=== PATIENT | female | born 1960 | race Caucasian/White ===

== ENCOUNTER 2017-06-05 22:43 | Emergency (ER) | payer OTHER ==
[~2017-06-05] VITALS: Ht 168.9 cm; Wt 119.5 kg
[~2017-06-05 22:43] MED LIST: ADD/10 PO; CYAN10004 PO; EFFEXOR XR PO; ERGO1CAP35 PO; FLNIN NAE; LORA-741 PO; LRT5 PO; PANT40TA PO
[2017-06-05 22:48] VITALS: Ht 168.9 cm; Wt 119.5 kg
[2017-06-05] MEDS ORDERED: ACETAMINOPHEN 500 MG TAB PO STA (23:02)
[2017-06-05] MEDS ORDERED: VENL150C PO (23:07)
[2017-06-05] MEDS ORDERED: WARF5TAB90 PO ×2 (23:09)
[2017-06-05] MEDS ORDERED: SUCR1TAB29 PO (23:09)
[2017-06-05] MEDS ORDERED: ACYC-57 PO (23:09)
--- NOTE | 2017-06-05 23:53 | EMERGENCY ROOM VISIT NOTE ---
History Report prepared by Pattie: April Naidu Under the Supervision of: Dr. Nicola Guerra M.D. First contact with patient: 22:52 Chief Complaint: ANKLE PAIN Stated Complaint: RT ANKLE INJURY History of Present Illness The patient is a 56 year old female who presents to the Emergency Room with complaints of persistent right ankle pain starting yesterday. The patient was carrying groceries into the house when she rolled her ankle in down a curb. She landed on her knees. She denies hitting her head. She was able to keep walking on her ankle, but has had a lot of pain. 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 She denies any nausea, vomiting, change in vision, change in hearing, or dizziness. The patient is on Coumadin for a history of DVT and PE. Her last INR check was over 1 month ago. She has a history of fibromyalgia. Source of History: patient Onset: yesterday Position: ankle (right) Quality: other (pain) Timing: other (persistent) Associated Symptoms: No nausea, No vomiting Note: Pt denies change in vision/hearing, dizziness. Review of Systems See HPI for pertinent positives and negatives. A total of ten systems were reviewed and were otherwise negative. Past Medical & Surgical Medical Problems: (1) DVT (deep venous thrombosis) (2) Hypertension (3) Pulmonary embolism Family History Cancer Gallbladder disease Heart disease Hypertension Social History Smoking Status: Never Smoker Alcohol Use: none Drug Use: none Marital Status: single Occupation Status: employed Current/Historical Medications Scheduled Acyclovir (Zovirax), 200 MG PO BID Pantoprazole Sodium (Protonix), 40 MG PO DAILY Sucralfate (Carafate), 1 GM PO AMHS Venlafaxine Hcl (Effexor Xr), 300 MG PO DAILY Warfarin Sodium (Coumadin), 1 TAB PO 5XWK Warfarin Sodium (Coumadin), 1.5 TAB PO 2XWK Allergies Coded Allergies: Sulfamethoxazole (Verified Allergy, Intermediate, RASH, 06/05/17) Sulfamethoxazole w/Trimethoprim (Verified Allergy, Intermediate, break out in hives, 06/05/17) Sulfa Drugs (Verified Allergy, Mild, RASH, 06/05/17) Amoxicillin (Verified Adverse Reaction, Intermediate, SEVERE NAUSEA AND VOMITING, 06/05/17) Tetracycline (Verified Adverse Reaction, Intermediate, NAUSEA/VOMITING, ) Clavulanic Acid (Verified Adverse Reaction, Unknown, SEVERE NAUSEA AND VOMITING, 06/05/17) Codeine (Verified Adverse Reaction, Unknown, VOMIT, 06/05/17) Physical Exam Vital Signs Date Time Temp Pulse Resp B/P (MAP) Pulse Ox O2 Delivery O2 Flow Rate FiO2 06/06/17 00:05 36.6 70 20 184/100 97 Room Air 06/05/17 22:48 36.6 60 20 196/110 97 Room Air Physical Exam GENERAL: Awake, alert, well-appearing, in no distress HENT: Normocephalic, atraumatic. Oropharynx unremarkable. EYES: Normal conjunctiva. Sclera non-icteric. NECK: Supple. No nuchal rigidity. FROM. No JVD. RESPIRATORY: Clear to auscultation. CARDIAC: Regular rate, normal rhythm. Extremities warm and well perfused. Pulses equal. ABDOMEN: Soft, non-distended. No tenderness to palpation. No rebound or guarding. No masses. RECTAL: Deferred. MUSCULOSKELETAL: Chest examination reveals no tenderness. The back is symmetrical on inspection without obvious abnormality. There is no CVA tenderness to palpation. No joint edema. LOWER EXTREMITIES: Moderate swelling and ecchymosis to the right lateral malleolus with tenderness to palpation. Full ROM however causes pain. No pain along the 5th metatarsal. PMS intact. NEURO: Normal sensorium. No sensory or motor deficits noted. SKIN: No rash or jaundice noted. Medical Decision & Procedures ER Provider Diagnostic Interpretation: X-ray: Per my interpretation, radiologist review. Right Ankle X-ray: Question distal fibular avulsion fracture. Joint space grossly maintained. Soft tissue swelling at the lateral malleolus. Right Foot X-ray: No gross fracture or dislocation. Medications Administered Medications (Trade) Dose Ordered Sig/José Manuel Route Start Time Stop Time Status Last Admin Dose Admin Acetaminophen (Tylenol Tab) 1,000 mg NOW STAT PO 06/05/17 23:02 06/05/17 23:03 DC 06/05/17 23:25 1,000 MG ED Course 2254: The patient was evaluated in room A9B. A complete history and physical exam was performed. 2342: I reevaluated the patient. I discussed results and discharge instructions : She verbalized understanding and agreement. The patient is ready for discharge. Medical Decision I reviewed the patient's past medical history, medications, and the nursing notes as described above. Differential diagnosis: fracture, dislocation, ligamentous injury, soft tissue injury, hematoma. The patient is a 56-year-old woman with a past medical history of DVT on Coumadin who presents to emergency department with right ankle pain and swelling after she twisted her ankle when stepping on a curb yesterday per history of present illness. The patient is no distress, afebrile with stable vital signs. And the patient has ecchymosis and swelling to the right lateral malleolus consistent with a moderate hematoma. FROM intact however causes pain. X-ray shows soft tissue swelling as well as a preliminary question on my review of a small distal fibular avulsion fragment. Patient's point of care INR also elevated to 4 and so counseled to skip her Coumadin tonight and to contact her coagulation clinic tomorrow. Otherwise plan will be for Naveed bandage for compression, Fx boot and ortho follow-up. Findings and plan for follow-up reviewed with patient. Patient agreeable and d/c'd per discharge instructions. Medication Reconcilliation Current Medication List: was personally reviewed by me Blood Pressure Screening Patient's blood pressure: Elevated blood pressure Blood pressure disposition: Elevated BP felt to be situational Impression Primary Impression: Traumatic hematoma of right ankle Additional Impressions: Severe ankle sprain Elevated INR (international normalized ratio) Scribe Attestation The scribe's documentation has been prepared under my direction and personally reviewed by me in its entirety. I confirm that the note above accurately reflects all work, treatment, procedures, and medical decision making performed by me. Departure Information Dispostion Home / Self-Care Referrals Aby Vargas (PCP) Arturo Wong D.O. Patient Instructions Ankle Fx, Ankle Inversion, Ankle Sprain, ED LETI, My [facility] [place] Additional Instructions Please follow up with orthopedics, , within 1 week for re-evaluation. You should also contact your coagulation clinic tomorrow for repeat INR check and further instructions. Skip your Coumadin dose tonight. You likely have a severe sprain and possibly a small chip fracture to your right ankle. Otherwise, your exam, lab results, and xray did not show signs of an emergent condition at this time. Acetaminophen for pain. RICE therapy. Naveed bandage for compression to minimize swelling. Keep foot elevated when possible. Walking boot with weight bearing as tolerated with crutches or walker for assistance. Return to the emergency department for worsening symptoms as described in the accompanying instructions. Work Instructions Return To Work: after follow-up Additional Instructions: Please exuse from work or allow modified duties as paient's symptoms allow or until evaluated by her doctor. Problem Qualifiers
[2017-06-06 00:05] VITALS: BP 184/100; PULSE 70; TEMP 36.6; O2SAT 97
--- NOTE | 2017-06-06 06:51 | DIAGNOSTIC IMAGING REPORT ---
R ANKLE MIN 3 VIEWS ROUTINE, R FOOT MIN 3 VIEWS ROUTINE HISTORY: 56 years-old Female pain fall acute right foot and ankle pain status post fall COMPARISON: None available TECHNIQUE: 3 views of the right foot and 3 views of the right ankle FINDINGS: ANKLE: Moderate to extensive soft tissue swelling seen about the ankle, greatest anterolaterally. 5 mm bone fragment fragment adjacent to the distal portion of the lateral malleolus suggests acute avulsion fracture fragment. There is a subtle ill-defined linear lucency and cortical irregularity noted involving the distal most aspect of the distal fibula laterally. No osteochondral defect. The distal tibia appears intact. Moderate enthesophyte about the calcaneus. Small joint effusion. FOOT: Mild degenerative changes of the interphalangeal and metatarsophalangeal joints. No acute fracture or subluxation identified. IMPRESSION: 1. Moderate to extensive soft tissue swelling about the ankle, greatest anterolaterally with 5 mm bone fragment adjacent to the lateral malleolus suggesting acute avulsion fracture. Additionally, there is a subtle ill-defined linear lucency of the distal fibula suggesting acute nondisplaced fracture. 2. Small joint effusion. 3. Moderate enthesophyte about the calcaneus. The above report was generated using voice recognition software. It may contain grammatical, syntax or spelling errors. Electronically signed by: Man Blackman M.D. 06/06/2017 6:49 AM Dictated Date/Time: 06/06/2017 6:43 AM
== END 2017-06-06 00:24 | disposition home or self-care (01) ==
LOC: C.EDB 22:44 → C.EDA 06-06 00:24
DX: S90.01XA Contusion of right ankle, initial encounter (principal); S93.401A Sprain of unspecified ligament of right ankle, initial encounter; X50.1XXA Overexertion from prolonged static or awkward postures, initial encounter; Y92.019 Unspecified place in single-family (private) house as the place of occurrence of the external cause; R79.1 Abnormal coagulation profile; I10 Essential (primary) hypertension; Z86.711 Personal history of pulmonary embolism; Z86.718 Personal history of other venous thrombosis and embolism; Z79.01 Long term (current) use of anticoagulants; Z79.899 Other long term (current) drug therapy; Z80.9 Family history of malignant neoplasm, unspecified; Z83.79 Family history of other diseases of the digestive system; Z82.49 Family history of ischemic heart disease and other diseases of the circulatory system

== ENCOUNTER 2017-07-29 16:18 | Emergency (ER) | payer OTHER ==
[~2017-07-29] VITALS: Ht 167.6 cm; Wt 117.3 kg
[~2017-07-29 16:18] MED LIST changes: -ADD/10 PO; -CYAN10004 PO; -EFFEXOR XR PO; -ERGO1CAP35 PO; -FLNIN NAE; -LORA-741 PO; -LRT5 PO; -PANT40TA PO; +VENL150C PO
[2017-07-29 16:20] VITALS: TEMP 36.4; Ht 167.6 cm; Wt 117.3 kg
[2017-07-29] MEDS ORDERED: PROPARACAINE HCL 0.5% OP SOLN 15 ML BTL OP STA (16:34)
--- NOTE | 2017-07-29 16:43 | EMERGENCY ROOM VISIT NOTE ---
History Report prepared by Pattie: Luis F Maria Under the Supervision of: Dr. Lorenzo Upton M.D. First contact with patient: 16:24 Chief Complaint: SHORTNESS OF BREATH Stated Complaint: EYE/NOSE BURNING,SOB,HISTORY OF BLOOD CLOTS History of Present Illness The patient is a 57 year old female with a history of hypertension and DVT who is on Warfarin who presents to the Emergency Room with complaints of worsening bilateral eye and nose pain that started yesterday. She states that she is currently being treated for bronchitis by her family doctor, and is taking a Z- pack. The patient notes that she is feeling better from that, but still has a cough. She notes that yesterday she started having bilateral eye pain and nose pain that she describes as a burning. The patient adds that her eyes have been red and watery. She rates her discomfort as a 7 out of 10 in severity. She says that her symptoms worsened today, and she started having shortness of breath upon waking today. The patient states that the shortness of breath has been getting progressively worse as the day is going on. She says that it was hard to drive here because it was so difficult to keep her eyes open. She notes that it does not hurt that much to move her eyes. She states that there is nothing recently that she thinks she would have reacted to poorly, and she notes no other rashes or breakouts anywhere else. The patient notes that she has asthma but no other lung history. The patient adds that over the past few months she has been getting some headaches and intermittent lightheadedness. Pt denies LOC , fevers, chills, diaphoresis, visual changes, neck pain, chest pain, nausea, vomiting, abdominal pain, back pain, melena, hematochezia, urinary symptoms, numbness, weakness, lymphadenopathy, or other complaints. Source of History: patient Onset: Yesterday Position: eye (bilateral), nose Symptom Intensity: 7/10 Quality: burning, other (redness) Timing: worsening Associated Symptoms: + cough, + SOB Note: No other associated symptoms noted. Review of Systems See HPI for pertinent positives and negatives. A total of ten systems were reviewed and were otherwise negative. Past Medical & Surgical Medical Problems: (1) DVT (deep venous thrombosis) (2) Hypertension (3) Pulmonary embolism Family History Cancer Gallbladder disease Heart disease Hypertension Social History Smoking Status: Never Smoker Alcohol Use: none Drug Use: none Marital Status: single Occupation Status: employed Current/Historical Medications Scheduled Acyclovir (Zovirax), 200 MG PO BID Pantoprazole Sodium (Protonix), 40 MG PO DAILY Sucralfate (Carafate), 1 GM PO AMHS Warfarin Sodium (Coumadin), 10 MG PO 3XWK Warfarin Sodium (Coumadin), 7.5 MG PO 4XWK Allergies Coded Allergies: Sulfamethoxazole (Verified Allergy, Intermediate, RASH, 06/05/17) Sulfamethoxazole w/Trimethoprim (Verified Allergy, Intermediate, break out in hives, 06/05/17) Sulfa Drugs (Verified Allergy, Mild, RASH, 06/05/17) Amoxicillin (Verified Adverse Reaction, Intermediate, SEVERE NAUSEA AND VOMITING, 06/05/17) Tetracycline (Verified Adverse Reaction, Intermediate, NAUSEA/VOMITING, ) Clavulanic Acid (Verified Adverse Reaction, Unknown, SEVERE NAUSEA AND VOMITING, 06/05/17) Codeine (Verified Adverse Reaction, Unknown, VOMIT, 06/05/17) Physical Exam Vital Signs Date Time Temp Pulse Resp B/P (MAP) Pulse Ox O2 Delivery O2 Flow Rate FiO2 07/29/17 18:20 72 16 65/98 99 Room Air 07/29/17 17:06 Room Air 07/29/17 17:05 93 Room Air 07/29/17 16:20 36.4 85 16 174/124 98 Room Air Physical Exam GENERAL: Awake, alert, well-appearing, in no distress HENT: Normocephalic, atraumatic. Oropharynx unremarkable. EYES: Normal conjunctiva. Sclera non-icteric. PERRL. EOMI. NECK: Supple. No nuchal rigidity. FROM. No masses. RESPIRATORY: Clear to auscultation. No wheezes. CARDIAC: Normal rate. Normal rhythm. No murmurs. No rubs. Extremities warm and well perfused. Pulses equal. No JVD. GI: Soft, non-distended. No tenderness to palpation. No rebound or guarding. No masses. RECTAL: Deferred. MUSCULOSKELETAL: Atraumatic. Chest examination reveals no tenderness. No joint edema. LOWER EXTREMITIES: Calves are equal size bilaterally and non-tender. No edema. No discoloration. NEURO: Normal sensorium. No sensory or motor deficits noted. SKIN: Large bruise over left breast, small bruise over left forearm. No rash or jaundice noted. Medical Decision & Procedures ER Provider Diagnostic Interpretation: X-ray: Per my interpretation, radiologist review. CHEST ONE VIEW PORTABLE HISTORY: 57 years-old Female EVALUATE RESPIRATORY DISTRESS.DYSPNEA acute respiratory distress COMPARISON: Chest radiograph 01/29/2008, CTA of the chest 10/13/2011 TECHNIQUE: Portable AP view of the chest FINDINGS: Cardiomediastinal and hilar silhouettes are within normal limits. No pneumothorax, pleural effusion, focal airspace consolidation or overt pulmonary edema. The bones of the chest appear grossly intact. Degenerative changes noted within the shoulders and spine. IMPRESSION: No acute process. The above report was generated using voice recognition software. It may contain grammatical, syntax or spelling errors. Electronically signed by: Man Blackman M.D. 07/29/2017 4:59 PM Dictated Date/Time: 07/29/2017 4:57 PM Laboratory Results 07/29/17 16:50 Red Blood Count 3.83, Mean Corpuscular Volume 97.7, Mean Corpuscular Hemoglobin 33.9, Mean Corpuscular Hemoglobin Concent 34.8, Mean Platelet Volume 10.4, Neutrophils (%) (Auto) 65.8, Lymphocytes (%) (Auto) 27.7, Monocytes (%) (Auto) 4.9, Eosinophils (%) (Auto) 0.8, Basophils (%) (Auto) 0.5, Neutrophils # (Auto) 4.85, Lymphocytes # (Auto) 2.04, Monocytes # (Auto) 0.36, Eosinophils # (Auto) 0.06, Basophils # (Auto) 0.04 07/29/17 16:50 Test 07/29/17 16:50 White Blood Count 7.37 K/uL (4.8-10.8) Red Blood Count 3.83 M/uL (4.2-5.4) Hemoglobin 13.0 g/dL (12.0-16.0) Hematocrit 37.4 % (37-47) Mean Corpuscular Volume 97.7 fL (80-100) Mean Corpuscular Hemoglobin 33.9 pg (25-34) Mean Corpuscular Hemoglobin Concent 34.8 g/dl (32-36) Platelet Count 230 K/uL (130-400) Mean Platelet Volume 10.4 fL (7.4-10.4) Neutrophils (%) (Auto) 65.8 % Lymphocytes (%) (Auto) 27.7 % Monocytes (%) (Auto) 4.9 % Eosinophils (%) (Auto) 0.8 % Basophils (%) (Auto) 0.5 % Neutrophils # (Auto) 4.85 K/uL (1.4-6.5) Lymphocytes # (Auto) 2.04 K/uL (1.2-3.4) Monocytes # (Auto) 0.36 K/uL (0.11-0.59) Eosinophils # (Auto) 0.06 K/uL (0-0.5) Basophils # (Auto) 0.04 K/uL (0-0.2) RDW Standard Deviation 46.6 fL (36.4-46.3) RDW Coefficient of Variation 13.2 % (11.5-14.5) Immature Granulocyte % (Auto) 0.3 % Immature Granulocyte # (Auto) 0.02 K/uL (0.00-0.02) Prothrombin Time 71.8 SECONDS (9.0-12.0) Prothromb Time International Ratio 7.1 (0.9-1.1) Activated Partial Thromboplast Time 70.2 SECONDS (21.0-31.0) Partial Thromboplastin Ratio 2.7 Anion Gap 6.0 mmol/L (3-11) Est Creatinine Clear Calc Drug Dose 64.4 ml/min Estimated GFR () 54.6 Estimated GFR (Non- 47.1 BUN/Creatinine Ratio 16.1 (10-20) Calcium Level 9.7 mg/dl (8.5-10.1) Total Bilirubin 0.5 mg/dl (0.2-1) Aspartate Amino Transf (AST/SGOT) 28 U/L (15-37) Alanine Aminotransferase (ALT/SGPT) 28 U/L (12-78) Alkaline Phosphatase 96 U/L (45-117) Total Creatine Kinase 413 U/L (26-192) Creatine Kinase MB 6.0 ng/ml (0.5-3.6) Creatine Kinase MB Ratio 1.5 (0-3.0) Troponin I < 0.015 ng/ml (0-0.045) Total Protein 8.0 gm/dl (6.4-8.2) Albumin 4.1 gm/dl (3.4-5.0) Globulin 3.9 gm/dl (2.5-4.0) Albumin/Globulin Ratio 1.0 (0.9-2) Laboratory results reviewed by me Medications Administered Medications (Trade) Dose Ordered Sig/José Manuel Route Start Time Stop Time Status Last Admin Dose Admin Ciprofloxacin HCl (Ciprofloxacin 0.3% Op Soln) 1 drops NOW ONCE OP 07/29/17 18:00 07/29/17 18:01 DC 07/29/17 18:00 1 DROPS Oxycodone HCl (Roxicodone Immediate Rel 5MG Home Pack) 1 homepack UD ONCE PO 07/29/17 18:00 3 18:01 DC 07/29/17 18:00 1 HOMEPACK Procedure Slit Lamp Examination Indication: Eye pain. The right and left eye were prepped with topical proparacaine. Slit lamp examination was performed in the standard fashion. Cornea appeared clear. Anterior chamber within normal limits. Scleral injection minimally present. No discharge present. Fluorescein examination performed and revealed scattered areas of uptake in the 6 to 9 o'clock position, and in the 3 to 4 o'clock position in the right eye. No clear ulceration. No dendrites. No foreign bodies noted. Negative Ronal sign. The patient tolerated the procedure well without complication. ECG Per My Interpretation Indication: SOB/dyspnea Rate (beats per minute): 71 Rhythm: sinus rhythm (with sinus arrhythmia) Findings: no acute ischemic change, other (LVH, normal intervals) ED Course 1628: The patient was evaluated in room B3B. A complete history and physical exam was performed. 1634: Alcaine 0.5% Oph Soln 2 drops OP. 1750: I reevaluated the patient and performed a tonometry test: left eye pressure 13.5, right eye pressure 14.5. Visual acuity 20/30 bilaterally. Discussed results and discharge instructions: she verbalized understanding and agreement. The patient is ready for discharge. 1800: Roxicodone Immediate Rel 5MG Home Pack 1 homepack PO, Ciprofloxacin 0.3% Op Soln 1 drops OP. Medical Decision Triage Nursing notes reviewed. The patient's presentation and history were concerning for eye pain, SOB, recent bronchitis. Etiologies such as conjunctivitis, iritis, foreign body, corneal ulcer, glaucoma , pneumonia, COPD, reactive airway disease, CHF, cardiac ischemia, pulmonary embolism, pneumothorax, musculoskeletal, infections, gastrointestinal, as well as others were entertained. Patient was evaluated. Clinically on exam she was doing well. Slit-lamp examination was performed. Visual acuity performed. 2 drops of proparacaine applied to her eyes for comfort. The discomfort in her eyes resolved. She does not have any evidence of glaucoma. Her tonometry was normal. The patient' s lamp examination does reveal some corneal uptake. She denies getting anything in her eyes or rubbing her eyes. This could be an early keratitis. There is no clear evidence of ulceration. She has no hypopyon. She has an eye doctor follow-up. She was given Ciloxan.The patient was found to have a supratherapeutic INR. She was counseled on this. She will hold her Coumadin and follow up with the Coumadin clinic on Monday. By the evaluation outlined above other emergent etiologies such as those listed in the differential, as well as others, were deemed relatively unlikely. The patient was educated about the findings as listed above. All questions were answered and the patient was pleased with the treatment. Return instructions were outlined and the patient was discharged in stable condition. The patient was referred to the patient's PCP, Coumadin clinic, and eye doctor for follow-up for a recheck of the current condition. Medication Reconcilliation Current Medication List: was personally reviewed by me Blood Pressure Screening Patient's blood pressure: Elevated blood pressure Blood pressure disposition: Referred to PCP Impression Primary Impression: Keratitis Additional Impressions: Dizziness Supratherapeutic INR Bronchitis Scribe Attestation The scribe's documentation has been prepared under my direction and personally reviewed by me in its entirety. I confirm that the note above accurately reflects all work, treatment, procedures, and medical decision making performed by me. Departure Information Dispostion Home / Self-Care Referrals Aby Vargas (PCP) Patient Instructions My [facility] Additional Instructions Oxycodone 5 mg: Take 1 pill every 4 hours as needed for severe pain. Avoid additional Acetaminophen/Tylenol, alcohol, operating machinery or dangerous equipment, working on ladders or roofs, DRIVING, or situations where being under the influence may be dangerous. It is recommended to use a stool softener such as Colace, 100mg twice daily while taking this medication to avoid constipation. Acetaminophen(Tylenol) may be used for fever or pain. Use 1000mg every six hours as needed. Avoid using more than 4000mg in a 24 hour period. Hold your Coumadin Tonight and tomorrow night. Follow-up with the Coumadin clinic Monday for further direction. Your INR was 7. Continue other current medications. Cool compresses for 20 minutes at a time four times daily for 2-3 days. Wash your hands after touching your face or eyes. Minimize contact with others while your eyes are affected. Avoid bright lights today, wear sun glasses. Return to the ER for facial swelling, worsening vision, severe eye pain, bleeding, chest pain, difficulty breathing, fevers or as needed. Follow-up with your eye doctor as scheduled on Monday. Follow-up with your primary care physician in 2 to 3 days for a recheck of your current condition. I did discuss and handwrite the patient's instructions for Ciloxan as she was being discharged. Problem Qualifiers
--- NOTE | 2017-07-29 17:00 | DIAGNOSTIC IMAGING REPORT ---
CHEST ONE VIEW PORTABLE HISTORY: 57 years-old Female EVALUATE RESPIRATORY DISTRESS.DYSPNEA acute respiratory distress COMPARISON: Chest radiograph 01/29/2008, CTA of the chest 10/13/2011 TECHNIQUE: Portable AP view of the chest FINDINGS: Cardiomediastinal and hilar silhouettes are within normal limits. No pneumothorax, pleural effusion, focal airspace consolidation or overt pulmonary edema. The bones of the chest appear grossly intact. Degenerative changes noted within the shoulders and spine. IMPRESSION: No acute process. The above report was generated using voice recognition software. It may contain grammatical, syntax or spelling errors. Electronically signed by: Man Blackman M.D. 07/29/2017 4:59 PM Dictated Date/Time: 07/29/2017 4:57 PM
[2017-07-29 17:05] VITALS: O2SAT 93
[2017-07-29 17:07] LABS: BASO % 0.5 %; BASO ABS # 0.04 K/uL (0-0.2); EOS % 0.8 %; EOS ABS # 0.06 K/uL (0-0.5); HEMATOCRIT 37.4 % (37-47); IG# 0.02 K/uL (0.00-0.02); LYMPH % 27.7 %; LYMPH ABS # 2.04 K/uL (1.2-3.4); MEAN CELL VOLUME 97.7 fL (80-100); MEAN CORPUSCULAR HEMOGLOBIN 33.9 pg (25-34); MEAN CORPUSCULAR HGB CONC 34.8 g/dl (32-36); MEAN PLATELET VOLUME 10.4 fL (7.4-10.4); MONO % 4.9 %; MONO ABS # 0.36 K/uL (0.11-0.59); NEUT % 65.8 %; NEUT ABS # 4.85 K/uL (1.4-6.5); PLATELET COUNT 230 K/uL (130-400); RED CELL DISTRIBUTION WIDTH CV 13.2 % (11.5-14.5); RED CELL DISTRIBUTION WIDTH SD 46.6 fL (36.4-46.3); WHITE BLOOD COUNT 7.37 K/uL (4.8-10.8)
[2017-07-29 17:24] LABS: ALBUMIN 4.1 gm/dl (3.4-5.0); ALT/SGPT 28 U/L (12-78); BLOOD UREA NITROGEN 21 mg/dl (7-18); CALCIUM 9.7 mg/dl (8.5-10.1); CARBON DIOXIDE 30 mmol/L (21-32); CREATININE 1.27 mg/dl (0.60-1.20); GLUCOSE 97 mg/dl (70-99); SODIUM 140 mmol/L (136-145)
[2017-07-29 17:29] LABS: ALKALINE PHOSPHATASE 96 U/L (45-117); AST/SGOT 28 U/L (15-37)
[2017-07-29 17:31] LABS: INR 7.1 (0.9-1.1); PTT PATIENT 70.2 SECONDS (21.0-31.0)
[2017-07-29] MEDS ORDERED: CIPROFLOXACIN HCL 0.3% OP SOLN 2.5 ML BTL OP ONE (18:00)
[2017-07-29] MEDS ORDERED: OXYCODONE IR HOME PACK PO ONE (18:00)
[2017-07-29 18:20] VITALS: BP 65/98; PULSE 72; O2SAT 99
[2017-07-29] MEDS ORDERED: PANT40TA PO (22:42)
[2017-07-29] MEDS ORDERED: SUCR1TAB29 PO (23:09)
[2017-07-29] MEDS ORDERED: ACYC-57 PO (23:09)
[2017-07-29] MEDS ORDERED: WARF5TAB90 PO ×2 (23:09)
== END 2017-07-29 18:31 | disposition home or self-care (01) ==
LOC: C.EDB 16:20
DX: H16.9 Unspecified keratitis (principal); R42 Dizziness and giddiness; R79.1 Abnormal coagulation profile; J40 Bronchitis, not specified as acute or chronic; I10 Essential (primary) hypertension; Z79.01 Long term (current) use of anticoagulants; Z86.718 Personal history of other venous thrombosis and embolism; Z86.711 Personal history of pulmonary embolism; Z88.2 Allergy status to sulfonamides; Z88.1 Allergy status to other antibiotic agents; Z88.8 Allergy status to other drugs, medicaments and biological substances; Z88.6 Allergy status to analgesic agent; Z80.9 Family history of malignant neoplasm, unspecified; Z83.79 Family history of other diseases of the digestive system; Z82.49 Family history of ischemic heart disease and other diseases of the circulatory system

== ENCOUNTER → 2017-12-15 | Day surgery (SDC) | payer OTHER ==
[2017-11-21 14:38] VITALS: BMI 41.0
--- NOTE | 2017-12-14 08:53 | History and Physical ---
History & Physical Date Dec 14, 2017. Chief Complaint Right ankle pain History of Present Illness The patient is a 57 year old female with complaints of right ankle pain after an inversion ankle injury. She was treated conservatively but failed and lateral had an MRI. She is now being set up for surgical tx. Past Medical/Surgical History Medical Problems: (1) DVT (deep venous thrombosis) (2) Hypertension (3) Pulmonary embolism Past surgical hx: Tonsillectomy, sinus surgery, breast reduction Social hx: No tobacco, 1 alcohol drink per week Allergies Coded Allergies: Sulfamethoxazole (Verified Allergy, Intermediate, RASH, 11/21/17) Sulfamethoxazole w/Trimethoprim (Verified Allergy, Intermediate, break out in hives, 11/21/17) Sulfa Drugs (Verified Allergy, Mild, RASH, 11/21/17) Amoxicillin (Verified Adverse Reaction, Intermediate, SEVERE NAUSEA AND VOMITING, 11/21/17) Tetracycline (Verified Adverse Reaction, Intermediate, NAUSEA/VOMITING, 11/21/17) Clavulanic Acid (Verified Adverse Reaction, Unknown, SEVERE NAUSEA AND VOMITING, 11/21/17) Codeine (Verified Adverse Reaction, Unknown, VOMIT-WAS ON EMPTY STOMACH, ) Home Medications Scheduled Acyclovir (Zovirax), 400 MG PO BID Amphetamine-Dextroamphetamine 20MG (Adderall 20MG), 25 MG PO QAM Fluticasone Propionate (Nasal) (Flonase Allergy Relief), 2 SPRAYS INTNAS BID Levothyroxine Sodium (Levothyroxine Sodium), 1 TAB PO QAM Lorazepam (Ativan), 0.5 MG PO PRN Multivitamin (Multivitamin), 1 TAB PO QAM Pantoprazole Sodium (Protonix), 40 MG PO QPM Sucralfate (Carafate), 1 GM PO AMHS Warfarin Sod (Jantoven), 5-7.5 MG PO QPM Scheduled PRN Albuterol Hfa (Ventolin Hfa), 2 PUFFS INH Q6H PRN for PRN Physical Examination Skin: warm/dry, no rash Eyes: normal inspection ENT: normal ENT inspection Head: normocephalic, atraumatic Neck: supple, no adenopathy, trachea midline Respiratory/Chest: lungs clear, normal breath sounds, no respiratory distress Cardiovascular: regular rate, rhythm Abdomen / GI: normal bowel sounds, non tender Extremities: + pertinent finding (Right ankle: + lateral ankle swelling. No erythema. Tender over the ATFL and the peroneal tendons. Painful PROM. Decreased strength.) Neurologic/Psych: no motor/sensory deficits, alert, oriented x 3 Diagnosis Right ankle peroneal tendon tear Right ankle ATFL tear Right ankle instability Plan of Treatment Patient will be scheduled for Right Open Peroneus Brevis tendon repair, Open modified brostrom procedure with Arthrex internal brace. All potential risks, benefits, complications, alternatives, and rehab have been discussed with the patient and she wishes to proceed. She will be scheduled for 12.15.17 with plan for ASA 81 mg BID x 4 wks for DVT prophylaxis.
[2017-12-15] VITALS (8 sets, daily range): BP systolic 118–160; BP diastolic 67–82; PULSE 56–80; TEMP 36.5–36.8; O2SAT 93–98; Ht 167.6 cm; Wt 116.4 kg
[~2017-12-15] VITALS: Ht 167.6 cm; Wt 116.4 kg
[~2017-12-15] MED LIST changes: +ACYC-57 PO; +AMPH20TA2 PO; +ATROPINE SULFATE 0.1 MG/ML 5ML SYR IV PRN; +BACITRACIN 50000 UNIT VIAL ONE; +CLINDAMYCIN 600 MG/54 ML D5W IV SCH; +DEXAMETHASONE SOD INJ 4 MG/ML VIAL ONE; +ENOX30IN4 SQ; +EpHEDrine SULFATE INJ 50 MG/ML AMP IV PRN; +FENTANYL CITRATE INJ 50 MCG/1 ML 2 ML VIAL IV PRN; +FENTANYL CITRATE INJ 50 MCG/1 ML 2 ML VIAL ONE; +FLUT0.15 INTNAS; +GLYCOPYRROLATE INJ 0.2 MG/ML VIAL ONE; +HYDROmorphone INJ 0.5 MG/0.5 ML SYR IV PRN; +HYDROmorphone INJ 2 MG/ML SYR/VIAL ONE; +LABETALOL HCL IV 5 MG/ML 20ML IV PRN; +LACTATED RINGER'S 1000ML 1,000 ML IV SCH; +LEVO100T7 PO; +LIDOCAINE HCL 2% 2 ML VIAL (20MG/ML) ONE; +LORA-741 PO; +MEPERIDINE HCL 25 MG/ML CARP IV PRN; +METOCLOPRAMIDE HCL INJ 5 MG/ML 2 ML VIAL ONE; +MIDAZOLAM HCL 1 MG/ML 2ML VIAL ONE; +MULT-506 PO; +NEOSTIGMINE METHYLSULFATE 5 MG/5 ML SYR ONE; +NURSING VERBAL MED ORDER ONE; +ONDANSETRON INJ 2 MG/ML 2 ML VIAL ONE; +OXYC-737 PO; +OXYCODONE HCL IR 5 MG TAB (IMMEDIATE RELEASE) PO PRN; +PANT40TA PO; +PROM25TA9 PO; +PROPOFOL IV EMULSION 10 MG/ML 20 ML VIAL ONE; +ROCURONIUM BROMIDE 10 MG/ML 5 ML VIAL ONE; +ROPIVACAINE 0.5% 5 MG/ML 30 ML VIAL ONE; +SUCR1TAB29 PO; -VENL150C PO; +VNTHFA/IN INH; +WARF5TAB7 PO
[2017-12-15 06:04] LABS: INR 1.2 (0.9-1.1); PTT PATIENT 32.7 SECONDS (21.0-31.0)
--- NOTE | 2017-12-15 07:34 | History & Physical Bridge Note ---
H&P Re-Evaluation Bridge Note: I have examined the patient, reviewed the History & Physical and in the interval since the performance of the History & Physical I have noted the following changes of clinical significance: No changes noted
--- NOTE | 2017-12-15 09:53 | [facility] Post Operative Brief Note ---
Immediate Operative Summary Operative Date Dec 15, 2017. Pre-Operative Diagnosis Right ankle peroneal tendon tear Right ankle anterior talo-fibular ligament tear Right ankle instability Post-Operative Diagnosis Right ankle peroneus brevis tendon tear Right ankle anterior talo-fibular ligament tear Right ankle instability Right ankle avulsion Fracture of the lateral malleolus Right ankle low-lying muscle belly peroneus brevis Procedure(s) Performed 1. Right Ankle Open Repair Peroneus Brevis Tendon 2. Open Brostrom Procedure with Arthrex Internal Brace 3. Right ankle excision avulsion fracture lateral malleolus 4. Right ankle myoplasty peroneus brevis 5. Right ankle synovectomy peroneal tendons Surgeon Dr. Sue Laird Oim Architect Surgeon(s) Julio Cox PA-C Estimated Blood Loss 2 ml Findings Consistent with Post-Op Diagnosis Specimens none per surgeon Drains None Anesthesia Type General Regional Complication(s) none Disposition Accompanied Pt To Recover: no Disposition: Recovery Room / PACU
--- NOTE | 2017-12-15 10:11 | Discharge Instructions ---
Discharge Instructions Date of Service Dec 15, 2017. Admission Reason for Admission: Right Ankle Sprain, Strain of Muscles and Tendons Discharge Discharge Diagnosis / Problem: right ankle instability Discharge Goals Goal(s): Decrease discomfort, Improve function Activity Recommendations Activity Limitations: per Instructions/Follow-up section Weightbearing Status: Right non-weightbearing . Instructions / Follow-Up Instructions / Follow-Up ACTIVITY RECOMMENDATIONS: Limitations: No weight bearing to affected limb at all times. SPECIAL CARE INSTRUCTIONS: * Start Lovenox and Coumadin tomorrow, 7.28.18, as directed by PCP. * Some drainage onto the dressing is normal and is no cause for alarm. * Some swelling is natural especially after walking. * When resting, keep your foot elevated above the level of your heart. * Call [facility] if you notice: -Increased drainage -Fever over 101 degrees F -Severe constant pain BANDAGE: * Leave bandage/cast in place unless otherwise directed. * Keep bandage/cast dry at all times. FOLLOW UP VISIT WITH DR. AMOS If appointment is not already scheduled: Please call [facility] after you get home today to schedule a follow-up appointment for [address] Amos at . Current Hospital Diet Patient's current hospital diet: Discharge Diet Recommended Diet: AHA Diet (Heart Healthy) Procedures Procedures Performed: 1. Right Ankle Open Repair Peroneus Brevis Tendon 2. Open Brostrom Procedure with Arthrex Internal Brace 3. Right ankle excision avulsion fracture lateral malleolus 4. Right ankle myoplasty peroneus brevis 5. Right ankle synovectomy peroneal tendons Pending Studies Studies pending at discharge: no Medical Emergencies . Who to Call and When: Medical Emergencies: If at any time you feel your situation is an emergency, please call 911 immediately. . Non-Emergent Contact Non-Emergency issues call your: Surgeon Call Non-Emergent contact if: temperature is above 101, your pain is not controlled, your pain is worsening . "Provider Documentation" section prepared by Julio Cox. .
[2017-12-15] MEDS: ONDANSETRON INJ 2 MG/ML 2 ML VIAL IV PRN ×2 (10:37→12:22)
--- NOTE | 2017-12-15 11:41 | OPERATIVE REPORT ---
DATE OF OPERATION: 12/15/2017 PREOPERATIVE DIAGNOSES: 1. Right ankle peroneus brevis tendon tear. 2. Anterior talofibular ligament tear. 3. Ankle instability. 4. Avulsion fracture of the lateral malleolus. POSTOPERATIVE DIAGNOSES: 1. Right ankle peroneus brevis tendon tear. 2. Anterior talofibular ligament tear. 3. Ankle instability. 4. Avulsion fracture, lateral malleolus. 5. Low lying muscle belly of the peroneus brevis. 6. Synovitis of the peroneal tendons. PROCEDURE: 1. Right ankle open repair of the peroneus brevis tendon. 2. Open modified Brostrom reconstruction with Arthrex internal brace. 3. Excision, avulsion fracture of the lateral malleolus. 4. Myoplasty of the peroneus brevis. 5. Synovectomy of the peroneal tendons. SURGEON: Dr. Laird. INSTRUMENTAL TEACHER: Julio Cox PA-C who was present for patient positioning, sterile prep and drape, management of retractors and instruments. He was present through the critical portions of the case including wound closure, application of sterile dressing, and transport of the patient to recovery. ANESTHESIA: General LMA with popliteal block. SPECIMENS: None. DRAINS: None. COMPLICATIONS: None. BLOOD LOSS: 2 mL. PERTINENT HISTORY: This is a 57-year-old female who sustained a severe inversion injury, right ankle. She attempted and failed conservative management including use of a brace, anti-inflammatories, rest, topical anti-inflammatories, physician-directed home exercises, physical therapy, and use of a crutch. The patient had an MRI, which demonstrated tear of the anterior talofibular ligament and tear of the peroneus brevis tendon. The patient was then scheduled for surgery as indicated. All potential risks, benefits, complications, alternatives, rehab, potential for incomplete relief of symptoms, need for further surgery, DVT, PE, , persistent pain, swelling, scarring, weakness, neurovascular injury, wound complications, hardware failure, nonunion, and malunion were discussed with the patient. The patient decided to proceed with the procedure as indicated. DESCRIPTION OF PROCEDURE: The patient had a popliteal block and was taken to the operative suite, placed supine on the operating room table. After review of the consent and identification of proper operative site, the patient was anesthetized and LMA was placed. Tourniquet was placed high on the right thigh over cast padding. Right lower extremity was then sterilely prepped and draped in the usual fashion, elevated and exsanguinated with an Esmarch bandage. Tourniquet was inflated to 325 mmHg. Next, a 15 blade scalpel was used to make an incision over the peroneal tendon sheath. The incision was deepened through the subcutaneous tissue. Meticulous hemostasis was achieved with electrocautery. Full thickness skin flaps were developed. Appropriate Steven rakes were placed in the incision followed by identification of the sural nerve, which was identified, freed with a Metzenbaum scissors and retracted. Next, the peroneal tendon sheath was then incised with 15 blade scalpel revealing significant synovitis throughout. A synovectomy was then performed with a 15 blade scalpel and a rongeur. Once the tendons were more appropriately visualized, it was noted to be a low lying muscle belly with muscular impingement at the peroneus brevis. Myoplasty was then performed with Metzenbaum scissors to the level just above the lateral malleolus. Next, the wound was irrigated with sterile normal saline and the peroneus brevis tendon was noted to have a tear in its mid substance adjacent to the lateral malleolus extending proximally and distally. Next, a 2-0 FiberWire suture was then used to perform a locking loop buried closure of the peroneus brevis tendon tear. Next, the wound was irrigated once again with sterile normal saline. Attention was then directed towards the distal aspect of the fibula. Soft tissue was carefully elevated in the anterior aspect flap with a Metzenbaum scissor revealing the superficial peroneal retinaculum and the remnant of the anterior talofibular ligament. These were both incised with 15 blade scalpel distal aspect of the fibula. The periosteum was elevated from the distal fibula and the 2 layers of the ATFL and the superficial peroneal retinaculum were then carefully with Metzenbaum scissors and retracted. Next, there was noted to be avulsion fracture of the distal lateral aspect of the lateral malleolus, which was then resected using a rongeur. Once this was completed, the distal aspect of the fibula was then decorticated to bleeding bone and the calcaneofibular ligament was then plicated with a #2 Ultrabraid suture. Next, the 4.75 mm SwiveLock anchor was then placed in the lateral process of the talus and the FiberTapes were then passed through the remnant of the ATFL and through the capsule and then with a free needle passed under the periosteum distal lateral aspect of the fibula. [employer] hole was drilled for the Bio-Tenodesis anchor in the fibula. The foot was held in neutral dorsiflexion and slight eversion and then a mosquito hemostat was then placed under the FiberTapes to avoid over tightening. Next, the Bio-Tenodesis screw was then implanted at the distal lateral aspect of the fibula with the FiberTapes tightened appropriately. Once this was completed, the excess FiberTape was then excised with a 15 blade scalpel and then the #2 FiberWire sutures were then passed through the superficial peroneal retinaculum in a [id number] fashion through the tissue of the distal lateral aspect of the fibula to the periosteum. The sutures were then tied and then passed back to the soft tissue in the lateral ankle to bury the knots. Next, a suture was then excised with 15 blade scalpel. Next, the wound was copiously irrigated with sterile normal saline until clear and the peroneal tendon sheath was then closed using a running 2-0 Vicryl suture. The dermis was closed using buried interrupted 3-0 Vicryl, skin was closed with 4-0 nylon. Sterile compressive dressing and bulky Mathieu Sheikh plaster splint was applied overwrapped with an Naveed wrap. The tourniquet was released, the patient awakened, taken to recovery in stable condition. I attest to the content of the Intraoperative Record and any orders documented therein. Any exception s are noted below.
--- NOTE | 2017-12-15 11:56 | Anesthesiology Progress Note ---
Anesthesia Post Op Note Date & Time Dec 15, 2017 at 11:56 Vital Signs Pain Intensity: 2 Vital Signs Past 12 Hours Date Time Temp Pulse Resp B/P (MAP) Pulse Ox O2 Delivery O2 Flow Rate FiO2 12/15/17 11:29 68 18 128/67 93 Room Air 12/15/17 10:59 36.5 64 18 128/67 94 Room Air 12/15/17 10:45 36.4 59 16 120/74 96 Room Air 12/15/17 10:35 62 16 127/80 92 Room Air 12/15/17 10:25 69 16 138/78 96 Oxymask 8 12/15/17 10:15 72 16 158/95 98 Oxymask 8 12/15/17 10:05 36.6 76 16 169/100 100 Oxymask 8 12/15/17 05:42 36.8 56 18 160/82 (108) 98 Room Air Notes Mental Status: alert / awake / arousable, participated in evaluation Pt Amnestic to Procedure: Yes Nausea / Vomiting: adequately controlled Pain: adequately controlled Airway Patency, RR, SpO2: stable & adequate BP & HR: stable & adequate Hydration State: stable & adequate Anesthetic Complications: no major complications apparent
== END | disposition home or self-care (01) ==
LOC: C.ACU 05:09
PROVIDERS: ATTEND Orthopaedic Surgery Sports Medicine
DX: S86.311A Strain of muscle(s) and tendon(s) of peroneal muscle group at lower leg level, right leg, initial encounter (principal); S93.491A Sprain of other ligament of right ankle, initial encounter; S82.61XA Displaced fracture of lateral malleolus of right fibula, initial encounter for closed fracture; X50.1XXA Overexertion from prolonged static or awkward postures, initial encounter; M25.371 Other instability, right ankle; M65.871 Other synovitis and tenosynovitis, right ankle and foot; I10 Essential (primary) hypertension; K21.9 Gastro-esophageal reflux disease without esophagitis; F32.9 Major depressive disorder, single episode, unspecified; E03.9 Hypothyroidism, unspecified; Z88.0 Allergy status to penicillin; Z88.5 Allergy status to narcotic agent; Z79.01 Long term (current) use of anticoagulants; Z86.718 Personal history of other venous thrombosis and embolism; Z86.711 Personal history of pulmonary embolism; Z88.2 Allergy status to sulfonamides

== ENCOUNTER 2018-07-18 21:56 | Observation (INO) ==
[2018-07-18] MEDS ORDERED: MoRPHine SULFATE 4 MG/ML 1 ML CARP\\VIAL IV STA (22:44)
[2018-07-18] MEDS ORDERED: ONDANSETRON INJ 2 MG/ML 2 ML VIAL IV STA (22:44)
[2018-07-18] MEDS ORDERED: SODIUM CHLORIDE 0.9% 1000ML 1,000 ML IV SCH (22:45)
[2018-07-18 22:50] LABS: Basophils # (auto) 0.04 K/uL (0-0.2); Basophils % (auto) 0.3 %; Eosinophils # (auto) 0.09 K/uL (0-0.5); Eosinophils % (auto) 0.7 %; Hemoglobin 14.2 g/dL (12.0-16.0); Immature Granulocytes # (auto) 0.03 K/uL (0.00-0.02); Immature Granulocytes % (auto) 0.2 %; Lymphocytes # (auto) 1.74 K/uL (1.2-3.4); Lymphocytes % (auto) 14.1 %; Mean Corpuscular Hgb Conc 34.6 g/dL (32-36); Mean Corpuscular Volume 98.3 fL (80-100); Mean Platelet Volume 11.2 fL (7.4-10.4); Monocytes # (auto) 0.82 K/uL (0.11-0.59); Monocytes % (auto) 6.6 %; Neutrophils # (auto) 9.63 K/uL (1.4-6.5); Neutrophils % (auto) 78.1 %; Platelet Count 202 K/uL (130-400); RDW Coefficient of Variation 13.1 % (11.5-14.5); RDW Standard Deviation 47.1 fL (36.4-46.3); Red Blood Count 4.17 M/uL (4.2-5.4); White Blood Count 12.35 K/uL (4.8-10.8)
[2018-07-18 22:59] LABS: BUN Creatinine Ratio 18.6 (10-20); Calcium 9.7 mg/dl (8.5-10.1); Creatinine Clr Calc Pharmacy 81.2 ml/min; Est GFR (African American) 71.6; Est GFR (Non-African American) 61.7; Potassium 3.6 mmol/L (3.5-5.1)
[2018-07-18 23:01] LABS: Appearance Urine Clear (Clear); Bilirubin Urine Negative (Negative); Blood Urine Negative (Negative); Color Urine Yellow; Glucose Urine UA Negative (Negative); Ketones Urine Negative (Negative); Leukocyte Esterase Urine Negative (Negative); Nitrite Urine Negative (Negative); Protein Urine Negative (Negative); Specific Gravity Urine 1.025 (1.000-1.030); Urobilinogen Urine Negative (Negative)
[2018-07-18 23:02] LABS: Bilirubin,Total 0.4 mg/dl (0.2-1)
[2018-07-18 23:18] LABS: INR 3.5 (0.9-1.1); Partial Thromboplastin Ratio 1.5; Partial Thromboplastin Time 40.4 Seconds (21.0-31.0); Prothrombin Time 33.1 Seconds (9.0-12.0)
[2018-07-19] MEDS ORDERED: ONDANSETRON INJ 2 MG/ML 2 ML VIAL IV PRN ×2 (02:08→16:44)
[2018-07-19] MEDS ORDERED: ACETAMINOPHEN 325 MG TAB PO PRN (02:08)
[2018-07-19] MEDS ORDERED: PHYTONADIONE 10 MG in SODIUM CHLORIDE 0.9% 50 ML IV STA (02:15)
[2018-07-19] MEDS ORDERED: metroNIDAZOLE 500 MG/100 ML BAG IV ONE (02:32)
[2018-07-19] MEDS: OXYCODONE HCL IR 5 MG TAB (IMMEDIATE RELEASE) PO PRN ×3 (02:37→15:07)
[2018-07-19] MEDS ORDERED: DiphenhydrAMINE HCL 50 MG/ML VIAL IV STA (02:44)
[2018-07-19] MEDS ORDERED: DiphenhydrAMINE HCL 50 MG/ML VIAL ONE (02:45)
[2018-07-19] MEDS: LACTATED RINGER'S 1,000 ML IV SCH ×3 (03:26→20:18)
[2018-07-19] MEDS: CIPROFLOXACIN 400 MG/200 ML BAG IV SCH ×2 (04:27→15:42)
--- NOTE | 2018-07-19 05:55 | Emergency Department Note ---
History of Present Illness General Chief complaint: Abdominal Pain Stated complaint: PAIN IN R SIDE OF ABDOMEN AND UNDER RIBS Time Seen by Provider: 07/18/18 22:34 History of Present Illness Maximum Pain Intensity: 5 This is a 58-year-old female presenting to the emergency department for evaluation of right upper and right lower abdominal pain that began approximately 9 hours prior to arrival. The patient states that she had [employer] for lunch, and shortly after began having some right-sided abdominal discomfort. She reports nausea without vomiting as well as a decreased appetit e. She did eat dinner approximately 2 hours prior to arrival at 8 PM, and states her pain continued to worsen. She has not had fever or chills. She has not taken anything [id number] for her symptoms. She reports a strong family history of gallbladder disease, although she herself has never had abdominal surgery. She has had other surgical procedures with nausea after anesthesia events. The patient states that she has a crampy 8/10 pain that sometimes worsens to a 10/10. She has been using the bathroom as normal. No chest pain, chest tightness, or shortness of breath. Home Medications Home Medications Medication Instructions Recorded Confirmed Type acyclovir 400 mg PO BID 07/18/18 07/18/18 History albuterol sulfate 2 puff INHALATION Q6H PRN 07/18/18 07/18/18 History dextroamphetamine-amphetamine 20 mg PO DAILY 07/18/18 07/18/18 History [Adderall] fluticasone [Flonase Allergy 2 spray INTRANASAL BID 07/18/18 07/18/18 History Relief] levothyroxine 100 mcg PO DAILY 07/18/18 07/18/18 History lorazepam 0.5 mg PO DAILY PRN 07/18/18 07/18/18 History pantoprazole 40 mg PO QPM 07/18/18 07/18/18 History pregabalin [Lyrica] 25 mg PO DAILY 07/18/18 07/18/18 History sucralfate [Carafate] 1 g PO ACHS 07/18/18 07/18/18 History warfarin [Coumadin] 5 mg PO [id number] 07/18/18 07/18/18 History warfarin [Coumadin] 7.5 mg PO WK 07/18/18 07/18/18 History Allergies Allergy/AdvReac Type Severity Reaction Status Date / Time Bactrim Allergy Intermediate break out Verified 12/15/17 05:35 in hives sulfamethoxazole Allergy Intermediate RASH Verified 07/18/18 23:52 trimethoprim Allergy Intermediate break out Verified 07/18/18 23:52 in hives Sulfa (Sulfonamide Allergy Mild RASH Verified 07/18/18 23:52 Antibiotics) phytonadione (vitamin K1) Allergy Difficulty Verified 07/19/18 02:49 Breathing amoxicillin AdvReac Intermediate SEVERE Verified 07/18/18 23:52 NAUSEA AND VOMITING tetracycline AdvReac Intermediate NAUSEA/VOMI Verified 07/18/18 23:52 TING clavulanic acid AdvReac Unknown SEVERE Verified 07/18/18 23:52 NAUSEA AND VOMITING codeine AdvReac Unknown VOMIT-WAS Verified 07/18/18 23:52 ON EMPTY STOMACH Past Med/Surg History Medical History Acid reflux Anxiety Arthritis Asthma Deep vein thrombosis Herpes Hypothyroid Pulmonary embolism Surgical History H/O sinus surgery History of ankle surgery Hx of breast reduction, elective Hx of tonsillectomy Social History Preferred Language: Azeri Communication Ability: Effective Vice President Financial Required: No Beliefs That Will Affect Care: None Current Living Situation: Spouse and Parent Other Information That Helps Us Care for You: No Feels Safe at Home: Yes Safety Concerns: Feels Safe At This Time Smoking Status: Never smoker Hx Alcohol Use: Yes Hx Substance Use: No Review of Systems A total of 10 systems reviewed and were otherwise negative Physical Exam Vital Signs Vital Signs - 24 hr 07/18/18 21:58 07/18/18 23:26 07/19/18 00:31 Temperature 36.8 C Temperature Source Oral Sepsis Recent Fever Within 48 Hours No Sepsis Action Taken by Nursing No Action Required Pulse Rate 103 H Pulse Rate [Apical] 68 83 Pulse Rate from SpO2 Sensor Respiratory Rate 18 21 20 Respiratory Effort / Characteristics Non-Labored Respiratory Depth Normal Respiratory Pattern Regular Blood Pressure 197/110 H Blood Pressure [Right Arm] 159/108 H 163/95 H Blood Pressure Mean 139 Blood Pressure Mean [Right Arm] 125 117 Pulse Oximetry 97 96 96 Oxygen Delivery Method Room Air Room Air Room Air 07/19/18 01:00 07/19/18 01:30 07/19/18 02:42 Temperature Temperature Source Sepsis Recent Fever Within 48 Hours Sepsis Action Taken by Nursing Pulse Rate 74 78 Pulse Rate [Apical] 78 Pulse Rate from SpO2 Sensor 75 78 Respiratory Rate 14 20 23 Respiratory Effort / Characteristics Respiratory Depth Respiratory Pattern Blood Pressure 145/83 H 145/95 H Blood Pressure [Right Arm] 141/70 H Blood Pressure Mean 103 111 Blood Pressure Mean [Right Arm] 93 Pulse Oximetry 92 96 94 Oxygen Delivery Method Room Air 07/19/18 03:00 07/19/18 03:01 07/19/18 03:33 Temperature 37 C Temperature Source Oral Sepsis Recent Fever Within 48 Hours Sepsis Action Taken by Nursing Pulse Rate 70 78 Pulse Rate [Apical] 73 Pulse Rate from SpO2 Sensor 72 74 Respiratory Rate 16 17 18 Respiratory Effort / Characteristics Respiratory Depth Respiratory Pattern Blood Pressure 153/92 H Blood Pressure [Right Arm] 163/90 H Blood Pressure Mean 112 Blood Pressure Mean [Right Arm] 114 Pulse Oximetry 93 93 94 Oxygen Delivery Method Room Air VITALS: Vitals are noted on the nurse's note and reviewed by myself. Vital signs stable. GENERAL: Well-developed, well-nourished, obese female who appears mildly uncomfortable but cooperative. HEAD: Normocephalic atraumatic. EYES: Pupils equal round and reactive to light and accommodation. Conjunctivae without injection, sclerae without icterus. Extraocular movements intact. NOSE: Patent, turbinates without inflammation or discharge. NECK: Supple without nuchal rigidity. No lymphadenopathy. No thyromegaly. Cervical spine is nontender. HEART: Regular rate and rhythm without murmurs gallops or rubs. LUNGS: Clear to auscultation bilaterally without wheezes, rales or rhonchi. No retractions or accessory muscle use. ABDOMEN: Positive normal bowel sounds x 4. Soft with generalized right-sided abdominal tenderness. There is right lower quadrant tenderness with palpation in the left side abdomen. No CVA tenderness. No rebound or guarding. MUSCULOSKELETAL: No muscle atrophy, erythema, or edema noted. Full range of motion in all extremities. No tenderness to palpation. NEURO: Patient was alert and oriented to person place and time. CN II through XII grossly intact. SKIN: The skin was without rashes, erythema, edema, or bruising. Capillary refill less than 2 seconds. Course Administered Medications Lactated Ringer's (Lr) 1,000 mls @ 100 mls/hr IV .Q10H MAUDE Stop: 08/18/18 02:14 Last Admin: 07/19/18 03:26 Dose: 100 mls/hr Documented by: [id number] Ciprofloxacin (Cipro) 400 mg in 200 mls @ 100 mls/hr IV Q12H MAUDE Stop: 07/29/18 03:59 Last Admin: 07/19/18 04:27 Dose: 100 mls/hr Documented by: [id number] Oxycodone HCl (Roxicodone Immediate Rel) 5 mg PO Q4H PRN PRN Reason: MODERATE Pain (Scale 4,5,6) Stop: 08/02/18 02:07 Last Admin: 07/19/18 02:37 Dose: 5 mg Documented by: [id number] Discontinued Medications Diphenhydramine HCl (Benadryl) 25 mg IV NOW STA Stop: 07/19/18 02:45 Last Admin: 07/19/18 02:50 Dose: 25 mg Documented by: [id number] Diphenhydramine HCl (Benadryl) Confirm Administered Dose 50 mg .ROUTE .STK-MED ONE Stop: 07/19/18 02:46 Last Admin: 07/19/18 02:50 Dose: Not Given Documented by: [id number] Sodium Chloride (Nss 1000ml) 1,000 mls @ 999 mls/hr IV .Q1H1M MAUDE Stop: 07/18/18 23:45 Last Infusion: 07/18/18 23:54 Dose: 0 mls/hr Documented by: [id number] Admin: 07/18/18 22:52 Dose: 999 mls/hr Documented by: [id number] Phytonadione 10 mg/ Sodium (Chloride) 51 mls @ 102 mls/hr IV ONE STA Stop: 07/19/18 02:44 Last Infusion: 07/19/18 02:43 Dose: 0 mls/hr Documented by: [id number] Admin: 07/19/18 02:38 Dose: 102 mls/hr Documented by: [id number] Morphine Sulfate (Morphine Sulfate) 4 mg IV NOW STA Stop: 07/18/18 22:45 Last Admin: 07/18/18 22:52 Dose: 4 mg Documented by: [id number] Ondansetron HCl (Zofran) 4 mg IV NOW STA Stop: 07/18/18 22:45 Last Admin: 07/18/18 22:52 Dose: 4 mg Documented by: [id number] Medical Decision Making Differential Diagnosis Differential diagnosis: Etiologies such as biliary colic, cholecystitis, hepatitis, pancreatitis, cardiac disease, pancreatitis, gastritis, peptic ulcer disease, appendicitis, cystitis, diverticulitis, mesenteric ischemia, inflammatory bowel disease, ileus, bowel obstruction, testicular/adnexal torsion, aortic pathology, s hingles, as well as others were considered Laboratory Data Result diagrams: 07/18/18 22:10 07/18/18 22:10 Lab Results 07/18/18 07/18/18 07/18/18 Range/Units 22:05 22:10 22:10 WBC 12.35 H (4.8-10.8) K/uL RBC 4.17 L (4.2-5.4) M/uL Hgb 14.2 (12.0-16.0) g/dL Hct 41.0 (37-47) % MCV 98.3 (80-100) fL MCH 34.1 H (25-34) pg MCHC 34.6 (32-36) g/dL RDW Std Deviation 47.1 H (36.4-46.3) fL RDW Coeff of Jesus 13.1 (11.5-14.5) % Plt Count 202 (130-400) K/uL MPV 11.2 H (7.4-10.4) fL Immature Gran % (Auto) 0.2 % Neut % (Auto) 78.1 % Lymph % (Auto) 14.1 % [place] % (Auto) 6.6 % Eos % (Auto) 0.7 % Baso % (Auto) 0.3 % Immature Gran # (Auto) 0.03 H (0.00-0.02) K/uL Neut # (Auto) 9.63 H (1.4-6.5) K/uL Lymph # (Auto) 1.74 (1.2-3.4) K/uL [place] # (Auto) 0.82 H (0.11-0.59) K/uL Eos # (Auto) 0.09 (0-0.5) K/uL Baso # (Auto) 0.04 (0-0.2) K/uL PT (9.0-12.0) Seconds INR (0.9-1.1) APTT (21.0-31.0) Seconds PTT Ratio Sodium 139 (136-145) mmol/L Potassium 3.6 (3.5-5.1) mmol/L Chloride 105 (98-107) mmol/L Carbon Dioxide 28 (21-32) mmol/L Anion Gap 6.0 (3-11) BUN 19 H (7-18) mg/dl Creatinine 1.01 (0.6-1.2) mg/dl Est Cr Clr Drug Dosing 81.2 ml/min Est GFR ( Amer) 71.6 Est GFR (Non-Af Amer) 61.7 BUN/Creatinine Ratio 18.6 (10-20) Glucose 101 H (70-99) mg/dl Calcium 9.7 (8.5-10.1) mg/dl Total Bilirubin 0.4 (0.2-1) mg/dl AST 20 (15-37) U/L ALT 20 (12-78) U/L Alkaline Phosphatase 114 (45-117) U/L Total Protein 8.0 (6.4-8.2) gm/dl Albumin 4.0 (3.4-5.0) gm/dl Globulin 4.0 (2.5-4.0) gm/dl Albumin/Globulin Ratio 1.0 (0.9-2) Lipase 155 (73-393) U/L Urine Color Yellow Urine Appearance Clear (Clear) Urine pH 5.0 (4.5-7.5) Ur Specific [place] 1.025 (1.000-1.030) Urine Protein Negative (Negative) Urine Glucose (UA) Negative (Negative) Urine Ketones Negative (Negative) Urine Blood Negative (Negative) Urine Nitrite Negative (Negative) Urine Bilirubin Negative (Negative) Urine Urobilinogen Negative (Negative) Ur Leukocyte Esterase Negative (Negative) 07/18/18 Range/Units 22:10 WBC (4.8-10.8) K/uL RBC (4.2-5.4) M/uL Hgb (12.0-16.0) g/dL Hct (37-47) % MCV (80-100) fL MCH (25-34) pg MCHC (32-36) g/dL RDW Std Deviation (36.4-46.3) fL RDW Coeff of Jesus (11.5-14.5) % Plt Count (130-400) K/uL MPV (7.4-10.4) fL Immature Gran % (Auto) % Neut % (Auto) % Lymph % (Auto) % [place] % (Auto) % Eos % (Auto) % Baso % (Auto) % Immature Gran # (Auto) (0.00-0.02) K/uL Neut # (Auto) (1.4-6.5) K/uL Lymph # (Auto) (1.2-3.4) K/uL [place] # (Auto) (0.11-0.59) K/uL Eos # (Auto) (0-0.5) K/uL Baso # (Auto) (0-0.2) K/uL PT 33.1 H (9.0-12.0) Seconds INR 3.5 H (0.9-1.1) APTT 40.4 H (21.0-31.0) Seconds PTT Ratio 1.5 Sodium (136-145) mmol/L Potassium (3.5-5.1) mmol/L Chloride (98-107) mmol/L Carbon Dioxide (21-32) mmol/L Anion Gap (3-11) BUN (7-18) mg/dl Creatinine (0.6-1.2) mg/dl Est Cr Clr Drug Dosing ml/min Est GFR ( Amer) Est GFR (Non-Af Amer) BUN/Creatinine Ratio (10-20) Glucose (70-99) mg/dl Calcium (8.5-10.1) mg/dl Total Bilirubin (0.2-1) mg/dl AST (15-37) U/L ALT (12-78) U/L Alkaline Phosphatase (45-117) U/L Total Protein (6.4-8.2) gm/dl Albumin (3.4-5.0) gm/dl Globulin (2.5-4.0) gm/dl Albumin/Globulin Ratio (0.9-2) Lipase (73-393) U/L Urine Color Urine Appearance (Clear) Urine pH (4.5-7.5) Ur Specific [place] (1.000-1.030) Urine Protein (Negative) Urine Glucose (UA) (Negative) Urine Ketones (Negative) Urine Blood (Negative) Urine Nitrite (Negative) Urine Bilirubin (Negative) Urine Urobilinogen (Negative) Ur Leukocyte Esterase (Negative) Imaging Data Radiologist's Impression: Preliminary Findings Only See Final Report For Complete Findings US RUQ: No gallstones. No evidence of GB wall thickening or pericholecystic fluid. No biliary dilatation. Liver, right kidney unremarkable. No free fluid. Preliminary Findings Only See Final Report For Complete Findings CT ABDOMEN & PELVIS Without Contrast: Appendix measures up to 9 mm. Tiny calcified appendicoliths are present. Suspicious for appendicitis. No renal stones or hydronephrosis. No free fluid or free air. Preliminary Findings Only See Final Report For Complete Findings CT ABDOMEN & PELVIS Without Contrast (reconstructed study): Calcified appendicoliths within a mildly dilated (9 mm), not significantly inflamed appendix. Suspicious for acute appendicitis. No renal stones or hydronephrosis. Reformats were reviewed. MDM Narrative Physical exam and history were performed. Nursing notes, EMR, and Medication List were personally reviewed. Patient appears to have right-sided abdominal pain for the past several hours. Her symptoms seem to have worsened throughout the day with food. She is concerned regarding her gallbladder. IV access was established and labs were obtained. The patient was given IV morphine, IV fluids, and IV Zofran for comfort. She was sent to ultrasound for further evaluation of her symptoms. The patient's blood work is as above and was reviewed. She does have a minimally elevated white blood cell count of 12,000. She is without a significant anemia, bandemia, or gross electrolyte imbalance. Lipase and transaminases are not diagnostic. INR is 3.5. Urine is without gross evidence of infection. Ultrasound returned and was reviewed by myself and radiology showing no obvious cholecystitis or acute biliary etiology. On reevaluation the patient did feel more comfortable, however it continued to have right-sided pain. Due to the elevated white count and persistent discomfort I did elect to perform a CT scan of the abdomen and pelvis. CT scan was reviewed and appears to be concerning for acute appendicitis. The case was discussed with the on-call general surgeon, Dr Loza, who did evaluate the patient here in the department. The patient will be admitted to the facility to correct her INR and make appropriate surgical decisions. The patient was started on IV vitamin K before transitioning to the floor. The patient began having an allergic reaction to this, and this was stopped. I did order additional Benadryl for the patient, which did resolve her symptoms. Overall the patient remained in stable condition for the remainder of her ER stay and was transferred to the floor without any worsening of her condition. Please see the surgical team dictation for further patient course, plan, and disposition. The chart was completed utilizing [employer] Voice Recognition Software. Grammatical errors, random word insertions, pronoun errors, and incomplete sentences are an occasional consequence of this system due to software limitations, ambient noise, and hardware issues. Any formal questions or concerns about the content, text, or information contained within the body of this dictation should be directly addressed to the provider for clarification. . Impression & Plan Acute appendicitis Discharge Plan Visit Data *Final* Discharge Date/Time: 07/19/18 03:03 Chief Complaint: Abdominal Pain Stated Complaint: PAIN IN R SIDE OF ABDOMEN AND UNDER RIBS ED Provider: Theo Rosas ED Midlevel Provider: Jeremy Xie Discharge Problem: Acute appendicitis Patient Disposition: Admitted As Inpatient Discharge Instructions Interventions: ED Discharge Assessment Last Done: 07/19/18 03:03 Discharge Problem: Acute appendicitis Qualifiers: Acute appendicitis type: unspecified acute appendicitis type Qualified Code(s): K35.80 - Unspecified acute appendicitis
--- NOTE | 2018-07-19 06:38 | CT Scan Report ---
CT SCAN OF THE ABDOMEN AND PELVIS WITHOUT CONTRAST CLINICAL HISTORY: Right flank pain COMPARISON STUDY: August 02, 2011 TECHNIQUE: CT scan of the abdomen and pelvis was performed from the lung bases to the proximal femurs . Images are reviewed in the axial, sagittal, and coronal planes. IV contrast was not administered fo r this examination. A dose lowering technique was utilized adhering to the principles of ALARA. CT DOSE: 1742.80 mGy.cm FINDINGS: Lower chest: There is mild basilar atelectasis/scarring. There is no pericardial effusion. There are no pleural effusions. Liver: The unenhanced liver is normal in size, contour, and attenuation. There is no intrahepatic pippa iary ductal dilatation. Gallbladder: Unremarkable. Spleen: Normal in size and attenuation. Pancreas: Unremarkable. Adrenal glands: Unremarkable. Kidneys: No renal, ureteral, or bladder calculi are visualized. There is no hydronephrosis. Bowel: There are no transition zones indicate bowel obstruction. There is no evidence of acute divert iculitis. There is a mildly dilated appendix measuring 8 mm with tiny calcified appendicoliths. There is equivocal minimal periappendiceal stranding. Peritoneum: There is no intraperitoneal free air or abdominal ascites. Vasculature: The abdominal aorta is normal in course and caliber. Adenopathy: None. Pelvic viscera: The bladder, and pelvic viscera are unremarkable. Skeletal structures: No destructive osseous lesions are seen. IMPRESSION: 1. No evidence of bowel obstruction. No evidence of free air 2. No renal, ureteral, or bladder calculi are visualized. 3. Mildly dilated appendix measuring 8 mm with tiny calcified appendicoliths. There is equivocal mini mal periappendiceal stranding. In the setting of right lower quadrant abdominal pain, the findings co uld represent an early acute appendicitis and clinical correlation in this regard is advocated. Electronically signed by: Refugio Vargas M.D. 07/19/2018 6:37 AM
--- NOTE | 2018-07-19 06:40 | Ultrasound Report ---
US gallbladder HISTORY: 58 years-old Female RUQ pain acute right upper quadrant abdominal pain COMPARISON: CT abdomen and pelvis of same day TECHNIQUE: Multiple real-time sonographic images of the abdominal right upper quadrant were obtained assessing grayscale appearance and color flow FINDINGS: Study is limited secondary to obscuring bowel gas and patient body habitus. Nonvisualization of the p ancreas. The visualized liver is unremarkable without focal mass or intrahepatic biliary ductal dilation ident ified. The gallbladder is contracted and demonstrates no wall thickening, cholelithiasis or perichole cystic fluid. Patient was recently given pain medication, therefore a Iglesias sign was unable to be ob tained. Common bile duct is normal, 4 mm. Imaged right kidney is unremarkable without hydronephrosis. No ascites. IMPRESSION: 1. Limited exam secondary to obscuring bowel gas and patient body habitus. 2. Contracted gallbladder without cholelithiasis or sonographic evidence of acute cholecystitis. 3. No biliary ductal dilation. The above report was generated using voice recognition software. It may contain grammatical, syntax o r spelling errors. Electronically signed by: Man Blackman M.D. 07/19/2018 6:39 AM
--- NOTE | 2018-07-19 07:30 | History & Physical Report ---
Date of Service July 19, 2018 Assessment & Plan (1) Acute appendicitis: Patient is a 58 yo morbidly obese female on Coumadin for prior DVTs and PE who presents with acute appendicitis. Discussed possible treatment options including appendectomy with alternative of antibiotic treatment . Decision was made to proceed with laparoscopic, possible open, appendectomy, possible bowel resection. Risks include injury to bowel, bladder, and adjacent structures, staple line leak, abscess, hernia, pain, scarring, bleeding (increased risk given pt is on Coumadin), infection, blood clots (increased risk given prior history), breathing problems, heart attack, stroke, , and need for additional procedures. Risks of not having surgery include worsening infection, recurrent appendicitis, perforation, abscess. All questions were answered to apparent satisfaction and the patient freely signed consent. - OR likely today (pending reversal of INR) for above procedure, consent obtained - Abx - Cipro and Flagyl IV - NPO, IVF - Vitamin K 10 mg IV given on evaluation - Shortly after administration (at same time pt also received narcotic) pt felt hot and flushed and then had some difficulty breathing. Vitamin K was stopped and Benadryl administered with resolution of symptoms - Analgesia PRN - Repeat CBC, BMP, INR, obtain type and screen - TEDS, SCDs - IS, encourage ambulation Present on Admission?: Yes History of Present Illness Chief Complaint: Abdominal pain Primary Care Provider: Eligio Myles Patient is a 58 yo morbidly obese female with history of PE and DVTs (most recently approximately 4 years ago) on Coumadin who presented with acute right sided abdominal pain after eating a hamburger at [facility]. RUQ U/S was completed, which was unremarkable. CT scan was then obtained, which showed appendicitis. She states pain is in her RLQ and radiates to her RUQ. She also reports diarrhea, which started yesterday. She also said she had mild RLQ pain one day prior. Otherwise, no prior similar symptoms, no prior GI issues. No sick contacts. Allergies Allergy/AdvReac Type Severity Reaction Status Date / Time Bactrim Allergy Intermediate break out Verified 12/15/17 05:35 in hives sulfamethoxazole Allergy Intermediate RASH Verified 07/18/18 23:52 trimethoprim Allergy Intermediate break out Verified 07/18/18 23:52 in hives Sulfa (Sulfonamide Allergy Mild RASH Verified 07/18/18 23:52 Antibiotics) phytonadione (vitamin K1) Allergy Difficulty Verified 07/19/18 02:49 Breathing amoxicillin AdvReac Intermediate SEVERE Verified 07/18/18 23:52 NAUSEA AND VOMITING tetracycline AdvReac Intermediate NAUSEA/VOMI Verified 07/18/18 23:52 TING clavulanic acid AdvReac Unknown SEVERE Verified 07/18/18 23:52 NAUSEA AND VOMITING codeine AdvReac Unknown VOMIT-WAS Verified 07/18/18 23:52 ON EMPTY STOMACH Home Medications Home Medications Medication Instructions Recorded Confirmed Type acyclovir 400 mg PO BID 07/18/18 07/18/18 History albuterol sulfate 2 puff INHALATION Q6H PRN 07/18/18 07/18/18 History dextroamphetamine-amphetamine 20 mg PO DAILY 07/18/18 07/18/18 History [Adderall] fluticasone [Flonase Allergy 2 spray INTRANASAL BID 07/18/18 07/18/18 History Relief] levothyroxine 100 mcg PO DAILY 07/18/18 07/18/18 History lorazepam 0.5 mg PO DAILY PRN 07/18/18 07/18/18 History pantoprazole 40 mg PO QPM 07/18/18 07/18/18 History pregabalin [Lyrica] 25 mg PO DAILY 07/18/18 07/18/18 History sucralfate [Carafate] 1 g PO ACHS 07/18/18 07/18/18 History warfarin [Coumadin] 5 mg PO 6XWK 07/18/18 07/18/18 History warfarin [Coumadin] 7.5 mg PO WK 07/18/18 07/18/18 History Past Med/Surg History Medical History Acid reflux Anxiety Arthritis Asthma Deep vein thrombosis Herpes Hypothyroid Pulmonary embolism Surgical History H/O sinus surgery History of ankle surgery Hx of breast reduction, elective Hx of tonsillectomy Social History Preferred Language: Macedonian Communication Ability: Effective Solutions Analyst Required: No Beliefs That Will Affect Care: None Current Living Situation: Spouse and Parent Other Information That Helps Us Care for You: No Feels Safe at Home: Yes Safety Concerns: Feels Safe At This Time Smoking Status: Never smoker Hx Alcohol Use: Yes Hx Substance Use: No Review of Systems Constitutional: no fever, no chills, no sweats and no weight loss Respiratory: no cough and no dyspnea Cardiovascular: no chest pain and no dyspnea at rest Gastrointestinal: + abdominal pain and + diarrhea/loose stools; no nausea, no vomiting and no constipation Genitourinary (Female): no dysuria and no urinary frequency Musculoskeletal: no joint pain no swelling Physical Exam Vital Signs (Past 24 Hours): Last Vital Signs Temp 37 C 07/19/18 03:33 Pulse 73 07/19/18 03:33 Resp 18 07/19/18 03:33 BP 163/90 H 07/19/18 03:33 Pulse Ox 94 07/19/18 03:33 Constitutional: WD/WN, vitals as above no acute distress Eyes: PERRL, conjunctivae normal, anicteric sclerae ENMT: external ear and nose normal, oropharynx normal Respiratory: normal respiratory effort Cardiovascular: Rate/Rhythm: regular rate and regular rhythm Gastrointestinal (Abdomen): soft, nondistended, protuberant, RLQ tenderness with voluntary guarding Musculoskeletal: no edema Skin: no rashes, warm and dry Neurologic: alert and oriented Results & Data Laboratory Results 07/18/18 07/18/18 07/18/18 Range/Units 22:10 22:10 22:10 WBC 12.35 H (4.8-10.8) K/uL RBC 4.17 L (4.2-5.4) M/uL Hgb 14.2 (12.0-16.0) g/dL Hct 41.0 (37-47) % MCV 98.3 (80-100) fL MCH 34.1 H (25-34) pg MCHC 34.6 (32-36) g/dL RDW Std Deviation 47.1 H (36.4-46.3) fL RDW Coeff of Jesus 13.1 (11.5-14.5) % Plt Count 202 (130-400) K/uL MPV 11.2 H (7.4-10.4) fL Immature Gran % (Auto) 0.2 % Neut % (Auto) 78.1 % Lymph % (Auto) 14.1 % [place] % (Auto) 6.6 % Eos % (Auto) 0.7 % Baso % (Auto) 0.3 % Immature Gran # (Auto) 0.03 H (0.00-0.02) K/uL Neut # (Auto) 9.63 H (1.4-6.5) K/uL Lymph # (Auto) 1.74 (1.2-3.4) K/uL [place]ner # (Auto) 0.82 H (0.11-0.59) K/uL Eos # (Auto) 0.09 (0-0.5) K/uL Baso # (Auto) 0.04 (0-0.2) K/uL PT 33.1 H (9.0-12.0) Seconds INR 3.5 H (0.9-1.1) APTT 40.4 H (21.0-31.0) Seconds PTT Ratio 1.5 Sodium 139 (136-145) mmol/L Potassium 3.6 (3.5-5.1) mmol/L Chloride 105 (98-107) mmol/L Carbon Dioxide 28 (21-32) mmol/L Anion Gap 6.0 (3-11) BUN 19 H (7-18) mg/dl Creatinine 1.01 (0.6-1.2) mg/dl Est Cr Clr Drug Dosing 81.2 ml/min Est GFR ( Amer) 71.6 Est GFR (Non-Af Amer) 61.7 BUN/Creatinine Ratio 18.6 (10-20) Glucose 101 H (70-99) mg/dl Calcium 9.7 (8.5-10.1) mg/dl Total Bilirubin 0.4 (0.2-1) mg/dl AST 20 (15-37) U/L ALT 20 (12-78) U/L Alkaline Phosphatase 114 (45-117) U/L Total Protein 8.0 (6.4-8.2) gm/dl Albumin 4.0 (3.4-5.0) gm/dl Globulin 4.0 (2.5-4.0) gm/dl Albumin/Globulin Ratio 1.0 (0.9-2) Lipase 155 (73-393) U/L Urine Color Urine Appearance (Clear) Urine pH (4.5-7.5) Ur Specific [place] (1.000-1.030) Urine Protein (Negative) Urine Glucose (UA) (Negative) Urine Ketones (Negative) Urine Blood (Negative) Urine Nitrite (Negative) Urine Bilirubin (Negative) Urine Urobilinogen (Negative) Ur Leukocyte Esterase (Negative) 07/18/18 Range/Units 22:05 WBC (4.8-10.8) K/uL RBC (4.2-5.4) M/uL Hgb (12.0-16.0) g/dL Hct (37-47) % MCV (80-100) fL MCH (25-34) pg MCHC (32-36) g/dL RDW Std Deviation (36.4-46.3) fL RDW Coeff of Jesus (11.5-14.5) % Plt Count (130-400) K/uL MPV (7.4-10.4) fL Immature Gran % (Auto) % Neut % (Auto) % Lymph % (Auto) % [place] % (Auto) % Eos % (Auto) % Baso % (Auto) % Immature Gran # (Auto) (0.00-0.02) K/uL Neut # (Auto) (1.4-6.5) K/uL Lymph # (Auto) (1.2-3.4) K/uL [place] # (Auto) (0.11-0.59) K/uL Eos # (Auto) (0-0.5) K/uL Baso # (Auto) (0-0.2) K/uL PT (9.0-12.0) Seconds INR (0.9-1.1) APTT (21.0-31.0) Seconds PTT Ratio Sodium (136-145) mmol/L Potassium (3.5-5.1) mmol/L Chloride (98-107) mmol/L Carbon Dioxide (21-32) mmol/L Anion Gap (3-11) BUN (7-18) mg/dl Creatinine (0.6-1.2) mg/dl Est Cr Clr Drug Dosing ml/min Est GFR ( Amer) Est GFR (Non-Af Amer) BUN/Creatinine Ratio (10-20) Glucose (70-99) mg/dl Calcium (8.5-10.1) mg/dl Total Bilirubin (0.2-1) mg/dl AST (15-37) U/L ALT (12-78) U/L Alkaline Phosphatase (45-117) U/L Total Protein (6.4-8.2) gm/dl Albumin (3.4-5.0) gm/dl Globulin (2.5-4.0) gm/dl Albumin/Globulin Ratio (0.9-2) Lipase (73-393) U/L Urine Color Yellow Urine Appearance Clear (Clear) Urine pH 5.0 (4.5-7.5) Ur Specific [place] 1.025 (1.000-1.030) Urine Protein Negative (Negative) Urine Glucose (UA) Negative (Negative) Urine Ketones Negative (Negative) Urine Blood Negative (Negative) Urine Nitrite Negative (Negative) Urine Bilirubin Negative (Negative) Urine Urobilinogen Negative (Negative) Ur Leukocyte Esterase Negative (Negative) Diagnostic Findings 07/18/18 U/S: 1. Limited exam secondary to obscuring bowel gas and patient body habitus. 2. Contracted gallbladder without cholelithiasis or sonographic evidence of acute cholecystitis. 3. No biliary ductal dilation. CT Abdomen/Pelvis: [place] Read: Appendix measuring 9 mm with multiple fecoliths and mild fat stranding, consistent with appendicitis Final Read: 1. No evidence of bowel obstruction. No evidence of free air 2. No renal, ureteral, or bladder calculi are visualized. 3. Mildly dilated appendix measuring 8 mm with tiny calcified appendicoliths. There is equivocal minimal periappendiceal stranding. In the setting of right lower quadrant abdominal pain, the findings could represent an early acute appendicitis and clinical correlation in this regard is advocated. Code Status & VTE Plan VTE Prophylaxis Plan VTE Prophylaxis will be ordered: Yes (1) Acute appendicitis Acute appendicitis type: unspecified acute appendicitis type Qualified Code(s): K35.80 - Unspecified acute appendicitis
[2018-07-19] MEDS ORDERED: MoRPHine SULFATE 4 MG/ML 1 ML CARP\\VIAL IV PRN ×3 (07:55)
[2018-07-19] MEDS: metroNIDAZOLE 500 MG/100 ML BAG IV SCH (09:21)
[2018-07-19 09:59] LABS: Basophils # (auto) 0.02 K/uL (0-0.2); Basophils % (auto) 0.3 %; Eosinophils % (auto) 1.5 %; Hematocrit (blood only) 32.7 % (37-47); Hemoglobin 11.2 g/dL (12.0-16.0); Immature Granulocytes # (auto) 0.02 K/uL (0.00-0.02); Immature Granulocytes % (auto) 0.3 %; Lymphocytes # (auto) 1.92 K/uL (1.2-3.4); Lymphocytes % (auto) 29.4 %; Mean Corpuscular Hgb Conc 34.3 g/dL (32-36); Mean Corpuscular Volume 99.1 fL (80-100); Mean Platelet Volume 10.1 fL (7.4-10.4); Monocytes # (auto) 0.51 K/uL (0.11-0.59); Monocytes % (auto) 7.8 %; Neutrophils # (auto) 3.97 K/uL (1.4-6.5); Neutrophils % (auto) 60.7 %; Platelet Count 125 K/uL (130-400); RDW Coefficient of Variation 13.1 % (11.5-14.5); RDW Standard Deviation 47.3 fL (36.4-46.3); White Blood Count 6.54 K/uL (4.8-10.8)
[2018-07-19 10:04] LABS: INR 2.8 (0.9-1.1); Prothrombin Time 26.8 Seconds (9.0-12.0)
[2018-07-19 10:10] LABS: BUN Creatinine Ratio 17.6 (10-20); Calcium 8.5 mg/dl (8.5-10.1); Creatinine Clr Calc Pharmacy 92.7 ml/min; Est GFR (African American) 84.5; Est GFR (Non-African American) 72.9; Potassium 3.6 mmol/L (3.5-5.1)
[2018-07-19] MEDS ORDERED: PHYTONADIONE 5 MG TAB PO STA (12:36)
[2018-07-19] MEDS ORDERED: PROTHROMBIN COMP CONC- KCENTRA 2,500 UNITS in SYRINGE 0 ML IV ONE (13:45)
--- NOTE | 2018-07-19 16:35 | Anesthesiology Consultation ---
Date of Service July 19, 2018 Assessment & Plan (1) Encounter for pre-operative examination: Chart Review Chart Review: Acceptable Risk for Surgery Consults Requested none ASA ASA3 Proposed Anesthesia Anesthesia Type: General Risk / Benefits Reviewed With: PT / POA / Parent / Guardian, Accepts Plan and Informed Consent Obtained NPO Date Last Intake of Fluids: 07/19/18 Time Last Intake of Fluids: 08:30 Last Intake of Fluids Comment: few sips with am med Date Last Intake of Solids: 07/18/18 Time Last Intake of Solids: 23:59 History Surgery Operation Date: 07/19/18 07:30 Proposed Procedures p Laparoscopic Appendectomy - Luz Elena Loza MD Height/Weight Height: 5 ft 6 in Weight: 119.1 kg Allergies Allergy/AdvReac Type Severity Reaction Status Date / Time Bactrim Allergy Intermediate break out Verified 12/15/17 05:35 in hives sulfamethoxazole Allergy Intermediate RASH Verified 07/18/18 23:52 trimethoprim Allergy Intermediate break out Verified 07/18/18 23:52 in hives Sulfa (Sulfonamide Allergy Mild RASH Verified 07/18/18 23:52 Antibiotics) phytonadione (vitamin K1) Allergy Difficulty Verified 07/19/18 02:49 Breathing amoxicillin AdvReac Intermediate SEVERE Verified 07/18/18 23:52 NAUSEA AND VOMITING tetracycline AdvReac Intermediate NAUSEA/VOMI Verified 07/18/18 23:52 TING clavulanic acid AdvReac Unknown SEVERE Verified 07/18/18 23:52 NAUSEA AND VOMITING codeine AdvReac Unknown VOMIT-WAS Verified 07/18/18 23:52 ON EMPTY STOMACH Medications Home Medications Medication Instructions Recorded Confirmed Last Taken acyclovir 400 mg PO BID 07/18/18 07/18/18 Unknown albuterol sulfate 2 puff INHALATION Q6H PRN 07/18/18 07/18/18 Unknown dextroamphetamine-amphetamine 20 mg PO DAILY 07/18/18 07/18/18 Unknown [Adderall] fluticasone [Flonase Allergy 2 spray INTRANASAL BID 07/18/18 07/18/18 Unknown Relief] levothyroxine 100 mcg PO DAILY 07/18/18 07/18/18 Unknown lorazepam 0.5 mg PO DAILY PRN 07/18/18 07/18/18 Unknown pantoprazole 40 mg PO QPM 07/18/18 07/18/18 Unknown pregabalin [Lyrica] 25 mg PO DAILY 07/18/18 07/18/18 Unknown sucralfate [Carafate] 1 g PO ACHS 07/18/18 07/18/18 Unknown warfarin [Coumadin] 5 mg PO 6XWK 07/18/18 07/18/18 Unknown warfarin [Coumadin] 7.5 mg PO WK 07/18/18 07/18/18 Unknown Active Medications Generic Name Dose Route Start Last Admin Trade Name Freq PRN Reason Stop Dose Admin Metronidazole 500 mg in 100 mls @ 100 mls/hr 07/19/18 10:00 07/19/18 10:59 Flagyl IV 07/29/18 09:59 Infused Q8H MAUDE Infusion Lactated Ringer's 1,000 mls @ 100 mls/hr 07/19/18 02:15 07/19/18 14:39 Lr IV 08/18/18 02:14 100 mls/hr .Q10H MAUDE Administration Ciprofloxacin 400 mg in 200 mls @ 100 mls/hr 07/19/18 04:00 07/19/18 15:42 Cipro IV 07/29/18 03:59 100 mls/hr Q12H MAUDE Administration Oxycodone HCl 5 mg 07/19/18 02:08 07/19/18 15:07 Roxicodone Immediate Rel PO 08/02/18 02:07 5 mg Q4H PRN Administration MODERATE Pain (Scale 4,5,6) Past Medical History Medical History Acid reflux Anxiety Arthritis Asthma Deep vein thrombosis Herpes Hypothyroid Pulmonary embolism Past Surgical History Surgical History H/O sinus surgery History of ankle surgery Hx of breast reduction, elective Hx of tonsillectomy Past Anesthesia History No Hx of Anesthesia Complications and No Family Hx of Anesthesia Complications History of PONV No Motion Sickness Screening History of Motion Sickness: No Social History Smoking Status: Never smoker Hx Alcohol Use: Yes Alcohol type: beer and wine alcohol intake frequency: a few times a month Hx Substance Use: No Exercise / Class Metabolic Activity II 4-5 Yardwork/Stairs/Walk up hill Physical Exam Vital Signs Last Vital Signs Temp 98.8 F 07/19/18 15:06 Pulse 59 L 07/19/18 15:06 Resp 20 07/19/18 15:06 BP 148/86 H 07/19/18 15:06 Pulse Ox 90 07/19/18 15:06 ENMT Mouth: no dentition abnormality Thyromental Distance: > or= 3.5 Finger Breadths Mallampati Class: III Neck normal visual inspection Respiratory normal respiratory effort Auscultation: lungs clear to auscultation bilaterally Cardiovascular Rate/Rhythm: regular rate and regular rhythm Testing Electrocardiogram Date: 07/29/17 Normal sinus rhythm with sinus arrhythmia, rate 71 bpm Minimal voltage criteria for LVH, may be normal variant Laboratory Results 07/19/18 09:35 07/19/18 09:35 Blood Type A Positive 07/19/18 09:35 Antibody Screen NEGATIVE 07/19/18 09:35 PT 11.2 Seconds (9.0-12.0) 07/19/18 16:15 INR 1.1 (0.9-1.1) 07/19/18 16:15 APTT 40.4 Seconds (21.0-31.0) H 07/18/18 22:10 Urine Color Yellow 07/18/18 22:05 Urine Appearance Clear (Clear) 07/18/18 22:05 Urine pH 5.0 (4.5-7.5) 07/18/18 22:05 Ur Specific [place] 1.025 (1.000-1.030) 07/18/18 22:05 Urine Protein Negative (Negative) 07/18/18 22:05 Urine Glucose (UA) Negative (Negative) 07/18/18 22:05 Urine Ketones Negative (Negative) 07/18/18 22:05 Urine Nitrite Negative (Negative) 07/18/18 22:05 Ur Leukocyte Esterase Negative (Negative) 07/18/18 22:05
[2018-07-19 16:36] LABS: INR 1.1 (0.9-1.1); Prothrombin Time 11.2 Seconds (9.0-12.0)
[2018-07-19] MEDS ORDERED: PROPOFOL IV EMULSION 10 MG/ML 20 ML VIAL IV ONE (16:36)
[2018-07-19] MEDS ORDERED: fentaNYL citrate 100 MCG/2 ML VIAL ONE ×2 (16:36)
[2018-07-19] MEDS ORDERED: MIDAZOLAM HCL 1 MG/ML 2ML VIAL ONE (16:36)
[2018-07-19] MEDS ORDERED: ONDANSETRON INJ 2 MG/ML 2 ML VIAL ONE ×2 (16:36→18:13)
[2018-07-19] MEDS ORDERED: DEXAMETHASONE SOD INJ 4 MG/ML VIAL ONE (16:36)
[2018-07-19] MEDS ORDERED: LIDOCAINE HCL 2% 2 ML VIAL/AMP(20MG/ML) INFIL ONE (16:36)
[2018-07-19] MEDS ORDERED: NEOSTIGMINE METHYLSULFATE 5 MG/5 ML SYR ONE (16:36)
[2018-07-19] MEDS ORDERED: GLYCOPYRROLATE 0.2 MG/ML VIAL ONE ×2 (16:36→18:13)
[2018-07-19] MEDS ORDERED: ePHEDrine sulfate 50 MG/ML AMP IV PRN (16:44)
[2018-07-19] MEDS ORDERED: ATROPINE SULFATE 0.1 MG/ML 10ML SYR IV PRN (16:44)
[2018-07-19] MEDS ORDERED: BUPIVACAINE/EPINEPHRINE 0.25% 1:200,000 30 ML VIAL ONE (16:52)
[2018-07-19] MEDS ORDERED: SCOPOLAMINE 1.5 MG TDSY ONE (17:12)
[2018-07-19] MEDS ORDERED: SCOPOLAMINE 1.5 MG TDSY TD SCH (17:30)
[2018-07-19] MEDS ORDERED: ePHEDrine sulfate 50 MG/ML SYR ONE (18:13)
[2018-07-19] MEDS ORDERED: ROCURONIUM BROMIDE 10 MG/ML 5 ML VIAL ONE (18:13)
[2018-07-19] MEDS ORDERED: BUPIVACAINE/EPINEPHRINE 0.25% 1:200,000 30 ML VIAL INJ ONE (18:34)
--- NOTE | 2018-07-19 18:47 | Post Operative Brief Note ---
Immediate Post Op Note v1 Date of Surgery July 19, 2018 Pre & Post Diagnosis Operation Date: 07/19/18 07:30 Pre-Op Diagnosis: ACUTE APPENDICITIS Post-Op Diagnosis: ACUTE APPENDICITIS Procedure Operation Date: 07/19/18 07:30 Actual Procedures p Laparoscopic Appendectomy(Not Applicable) - Luz Elena Loza MD Surgeon Luz Elena Loza MD Sugar Refinery Supervisor Raphael Dunham MD Estimated Blood Loss 5 Findings Consistent with Post-Op Diagnosis Fluids 800 ml Specimens Appendix to Pathology Drains Vega Catheter
--- NOTE | 2018-07-19 18:47 | Operative Report ---
Post Operative Report Pre & Post Diagnosis Operation Date: 07/19/18 07:30 Pre-Op Diagnosis: ACUTE APPENDICITIS Post-Op Diagnosis: ACUTE APPENDICITIS Procedure Operation Date: 07/19/18 07:30 Actual Procedures p Laparoscopic Appendectomy(Not Applicable) - Luz Elena Loza MD Surgeon Luz Elena Loza MD Wrong Address Clerk Raphael Dunham MD Estimated Blood Loss 5 Findings See Below Mildly inflamed appendix Specimens Appendix to Pathology Drains None Anesthesia Type General Complications none Disposition Accompanied Patient To Recovery: Yes Disposition: Recovery Room Indications The patient is a 58 yo female who presented with acute appendicitis. Decision was made to proceed withlaparoscopic, possible open appendectomy, possible bowel resection. Consent obtained. Risks, benefits, goals, complications, post-op expectations, limitations, and alternatives were discussed with the patient. Risks include, but are not limited to, pain, scarring, bleeding and associated problems, infection, heart attack, breathing problems including required intubation post-operatively, stroke, blood clots including deep vein thrombosis and pulmonary embolism, injury to surrounding tissues or organs, , need for additional procedures, anastomotic or staple line leak, abscess, and hernia. All questions were answered to apparent satisfaction and the patientfreely signed consent. Description of Procedure The patient was taken to the operating room and placed in the supine position. General anesthesia was induced.A rosas was placed. The patient was prepped and draped in the usual sterile fashion.A timeout washeld confirming the correct patient, procedure, specimens, and necessary equipment.An incision was made below the umbilicus.This was carried down through the perperitoneal fat with electrocautery. Care was taken to ensure there were no adhesions surrounding the entry site.Entry into the peritoneum was confirmed visually and no bowel was noted in the vicinity of the incision. The Stewart cannula was inserted. The abdomen was insufflated with carbon dioxide. The patient tolerated insufflation well. The laparoscope was inserted and the abdomen inspected. No injuries from initial trocar placement were noted. The patient was placed in Trendelenburg and tilted slightly to the left. Add itional trocars were then inserted in the following locations: a 5 mm trocar in thelower midline, with care to avoid injury to the bladder,anda5 mm trocartriangulated in the LLQ. The abdomen was inspected andan acutely inflamed, gangrenous appendix with adhesions and a small amount of free fluid. The appendix was mobilized from the pelvis. A window was made between the appendix and the mesoappendix at the base of the appendix at the cecum with a [place]. The mesoappendix was then divided with a sheehan load on the endoscopic SWETA stapler. The base of the appendix was transected with a purple load on the endoscopic SWETA stapler. The appendix was placed in an endoscopic retrieval bag. The abdomen was irrigated. Hemostasis was ensured. The staple lines were visualized and was intact and not bleeding. Secondary trocars were removed under direct visualization. No bleeding was noted. The laparsocope and Stewart cannula were withdrawn. The specimenwasremoved from the peritoneal cavity and sent to Pathology. The fascia of the midline Stewart trocar site was closed with [id number] 0 vicryl suturesto primarily repair the ventral hernia. The skin was closed with subcuticular sutures of 4-0 Monocryl and Dermabond was applied to the incisions. All counts were reported as correct. Thefoleywas removed. The patient was extubated and transferred to the recovery areain stable condition. I attest to the content of the Intraoperative Record and any orders documented therein. Any exceptions are noted below.
[2018-07-19] MEDS: fentaNYL citrate 100 MCG/2 ML VIAL IV PRN ×2 (19:17→19:24)
[2018-07-19] MEDS ORDERED: LORazepam 0.5 MG TAB PO PRN (20:00)
[2018-07-19] MEDS ORDERED: ALBUTEROL HFA 8 GM INHALER INH PRN (20:00)
--- NOTE | 2018-07-19 20:14 | Anesthesiology Progress Note ---
Date of Service July 19, 2018 Anesthesia Post Procedure Vital Signs Vital Signs: Temp Pulse Pulse Pulse Resp BP BP 07/19/18 20:01 99.0 F 71 20 157/92 H 07/19/18 19:45 62 9 L 07/19/18 19:40 64 7 L 146/87 H 07/19/18 19:35 64 16 151/85 H 07/19/18 19:32 97.9 F 66 16 151/85 H 07/19/18 19:30 63 16 143/92 H 07/19/18 19:25 73 14 139/86 07/19/18 19:22 69 16 07/19/18 19:21 62 17 145/89 H 07/19/18 19:20 63 17 07/19/18 19:15 71 16 153/87 H 07/19/18 19:11 70 17 151/89 H 07/19/18 19:10 71 20 07/19/18 19:06 70 19 160/96 H 07/19/18 19:05 70 20 07/19/18 19:02 73 16 166/93 H 07/19/18 19:00 81 19 07/19/18 18:57 86 20 186/112 H 07/19/18 18:55 98.4 F 86 87 23 184/97 H 186/112 H 07/19/18 18:54 93 H 20 07/19/18 17:08 99.1 F 61 18 156/97 H 07/19/18 15:06 98.8 F 59 L 20 148/86 H 07/19/18 11:43 99.0 F 62 14 151/93 H 07/19/18 07:25 99.0 F 66 16 116/75 07/19/18 03:33 98.6 F 73 18 163/90 H 07/19/18 03:01 78 17 07/19/18 03:00 70 16 153/92 H 07/19/18 02:42 78 23 141/70 H 07/19/18 01:30 78 20 145/95 H 07/19/18 01:00 74 14 145/83 H 07/19/18 00:31 83 20 163/95 H 07/18/18 23:26 68 21 159/108 H 07/18/18 21:58 98.2 F 103 H 18 197/110 H Pulse Ox 07/19/18 20:01 95 02/28/19 19:45 96 07/19/18 19:40 96 07/19/18 19:35 97 07/19/18 19:32 96 07/19/18 19:30 94 07/19/18 19:25 95 07/19/18 19:22 94 07/19/18 19:21 89 L 07/19/18 19:20 92 07/19/18 19:15 92 07/19/18 19:11 95 07/19/18 19:10 94 07/19/18 19:06 95 07/19/18 19:05 94 07/19/18 19:02 94 07/19/18 19:00 92 07/19/18 18:57 96 07/19/18 18:55 92 07/19/18 18:54 92 07/19/18 17:08 94 07/19/18 15:06 90 07/19/18 11:43 94 07/19/18 07:25 94 07/19/18 03:33 94 07/19/18 03:01 93 07/19/18 03:00 93 07/19/18 02:42 94 07/19/18 01:30 96 07/19/18 01:00 92 07/19/18 00:31 96 07/18/18 23:26 96 07/18/18 21:58 97 Pain Intensity Right Abdomen: Pain Intensity: 2 Notes Mental Status: alert / awake / arousable and participated in evaluation Patient Amnestic to Procedure: Yes Nausea / Vomiting: adequately controlled Pain: adequately controlled Airway Patency, RR, SpO2: stable & adequate BP & HR: stable & adequate Hydration State: stable & adequate Anesthetic Complications: no major complications apparent and Pt Satisfied with anesthetic care
[2018-07-19] MEDS ORDERED: WARFARIN SOD 10 MG TAB PO ONE (20:30)
[2018-07-19] MEDS ORDERED: ENOXAPARIN INJ 40 MG/0.4 ML SYR SQ SCH (21:00)
[2018-07-19] MEDS: SUCRALFATE 1 GM TAB PO SCH (21:19)
--- NOTE | 2018-07-19 22:33 | XRay Report ---
XR chest 1V portable CLINICAL HISTORY: low o2 hypoxia COMPARISON STUDY: 07/29/2017 FINDINGS: The bones soft tissues and hemidiaphragms are normal. The cardiomediastinal silhouette is n ormal. The lungs are clear. The pulmonary vasculature is normal. IMPRESSION: Negative chest. The above report was generated using voice recognition software. It may contain grammatical, syntax or spelling errors. Electronically signed by: Raphael Cavazos M.D. 07/19/2018 10:31 PM
--- NOTE | 2018-07-19 23:03 | Hospitalist Consultation ---
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 daily until INR > 2 (No need for bridge therapy as per advice of [facility] ehs manager recreation establishment manager.) Anemia workup Watch out for bleeding given thrombocytopenia Monitor BP DVT prophylaxis. Lovenox 40 mg subcutaneous daily adequate until INR greater than 2 Thank you very much for this consultation. Dr. Gonzales will follow patient's progress. History of Present Illness Reason for Consultation: Medical management Requesting Physician: Dr. Loza Attending Physician: Luz Elena Loza MD History of Present Illness PCP : Dr. Myles History obtained from patient and records. 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 Patient noted achy right lower quadrant pain going to the right upper quadrant after eating a hamburger at a local fast food restaurant today. CAT scan of the abdomen pelvis showed appendicitis. Vitamin K given at the ER to reverse INR of 3.5. Patient subsequently underwent emergent appendectomy. Patient currently comfortable in the room. Denies chest pain, S OB. Usual sinu s congestion symptoms. Tolerable postop abdominal pain. Denies black/bloody stools at home. Family History : Myelodysplastic syndrome, A. 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 Allergies Allergy/AdvReac Type Severity Reaction Status Date / Time Bactrim Allergy Intermediate break out Verified 12/15/17 05:35 in hives sulfamethoxazole Allergy Intermediate RASH Verified 07/18/18 23:52 trimethoprim Allergy Intermediate break out Verified 07/18/18 23:52 in hives Sulfa (Sulfonamide Allergy Mild RASH Verified 07/18/18 23:52 Antibiotics) phytonadione (vitamin K1) Allergy Difficulty Verified 07/19/18 02:49 Breathing amoxicillin AdvReac Intermediate SEVERE Verified 07/18/18 23:52 NAUSEA AND VOMITING tetracycline AdvReac Intermediate NAUSEA/VOMI Verified 07/18/18 23:52 TING clavulanic acid AdvReac Unknown SEVERE Verified 07/18/18 23:52 NAUSEA AND VOMITING codeine AdvReac Unknown VOMIT-WAS Verified 07/18/18 23:52 ON EMPTY STOMACH Home Medications Home Medications Medication Instructions Recorded Confirmed Type acyclovir 400 mg PO BID 07/18/18 07/18/18 History albuterol sulfate 2 puff INHALATION Q6H PRN 07/18/18 07/18/18 History dextroamphetamine-amphetamine 20 mg PO DAILY 07/18/18 07/18/18 History [Adderall] fluticasone [Flonase Allergy 2 spray INTRANASAL BID 07/18/18 07/18/18 History Relief] levothyroxine 100 mcg PO DAILY 07/18/18 07/18/18 History lorazepam 0.5 mg PO DAILY PRN 07/18/18 07/18/18 History pantoprazole 40 mg PO QPM 07/18/18 07/18/18 History pregabalin [Lyrica] 25 mg PO DAILY 07/18/18 07/18/18 History sucralfate [Carafate] 1 g PO ACHS 07/18/18 07/18/18 History warfarin [Coumadin] 5 mg PO 6XWK 07/18/18 07/18/18 History warfarin [Coumadin] 7.5 mg PO WK 07/18/18 07/18/18 History Patient History Medical History Acid reflux Anxiety Arthritis Asthma Deep vein thrombosis Herpes Hypothyroid Pulmonary embolism Surgical History H/O sinus surgery History of ankle surgery Hx of breast reduction, elective Hx of tonsillectomy Social History Preferred Language: Latvian Communication Ability: Effective [employer] Required: No Beliefs That Will Affect Care: None Current Living Situation: Spouse and Parent Other Information That Helps Us Care for You: No Feels Safe at Home: Yes Safety Concerns: Feels Safe At This Time Smoking Status: Never smoker Hx Alcohol Use: Yes Hx Substance Use: No Review of Systems As per HPI, all 10 systems reviewed, all other ROS negative Physical Exam Vital Signs (Past 24 Hours): Last Vital Signs Temp 37.1 C 07/19/18 22:38 Pulse 67 07/19/18 22:38 Resp 16 07/19/18 22:38 BP 152/81 H 07/19/18 22:38 Pulse Ox 95 07/19/18 22:38 Physical Exam: GENERAL: Comfortable, slightly anxious, pleasant, obese no respiratory distress SKIN: Pallor, warm HEENT: Pale palpebral conjunctivae, no ptosis, dry buccal mucosa NECK : Supple, short neck, no tenderness CHEST : Decreased breath sounds , no tenderness HEART : RRR, no obvious murmurs ABDOMEN: Some distention, minimal right-sided abdominal tenderness EXTREMITIES : minimal LE swelling/tenderness, no other conspicuous deformities noted NEUROLOGIC : Coherent, no facial asymmetry, no other gross focality Results & Data Laboratory Results Laboratory Results WBC 6.54 K/uL (4.8-10.8) 07/19/18 09:35 RBC 3.30 M/uL (4.2-5.4) L 07/19/18 09:35 Hgb 11.2 g/dL (12.0-16.0) L D 07/19/18 09:35 Hct 32.7 % (37-47) L 07/19/18 09:35 MCV 99.1 fL (80-100) 07/19/18 09:35 MCH 33.9 pg (25-34) 07/19/18 09:35 MCHC 34.3 g/dL (32-36) 07/19/18 09:35 RDW Std Deviation 47.3 fL (36.4-46.3) H 07/19/18 09:35 RDW Coeff of Jesus 13.1 % (11.5-14.5) 07/19/18 09:35 Plt Count 125 K/uL (130-400) L 07/19/18 09:35 MPV 10.1 fL (7.4-10.4) 07/19/18 09:35 Immature Gran % (Auto) 0.3 % 07/19/18 09:35 Neut % (Auto) 60.7 % 07/19/18 09:35 Lymph % (Auto) 29.4 % 07/19/18 09:35 [place] % (Auto) 7.8 % 07/19/18 09:35 Eos % (Auto) 1.5 % 07/19/18 09:35 Baso % (Auto) 0.3 % 07/19/18 09:35 Immature Gran # (Auto) 0.02 K/uL (0.00-0.02) 07/19/18 09:35 Neut # (Auto) 3.97 K/uL (1.4-6.5) 07/19/18 09:35 Lymph # (Auto) 1.92 K/uL (1.2-3.4) 07/19/18 09:35 [place] # (Auto) 0.51 K/uL (0.11-0.59) 07/19/18 09:35 Eos # (Auto) 0.10 K/uL (0-0.5) 07/19/18 09:35 Baso # (Auto) 0.02 K/uL (0-0.2) 07/19/18 09:35 PT 11.2 Seconds (9.0-12.0) 07/19/18 16:15 INR 1.1 (0.9-1.1) 07/19/18 16:15 APTT 40.4 Seconds (21.0-31.0) H 07/18/18 22:10 PTT Ratio 1.5 07/18/18 22:10 Sodium 141 mmol/L (136-145) 07/19/18 09:35 Potassium 3.6 mmol/L (3.5-5.1) 07/19/18 09:35 Chloride 108 mmol/L (98-107) H 07/19/18 09:35 Carbon Dioxide 28 mmol/L (21-32) 07/19/18 09:35 Anion Gap 5.0 (3-11) 07/19/18 09:35 BUN 15 mg/dl (7-18) 07/19/18 09:35 Creatinine 0.88 mg/dl (0.6-1.2) 07/19/18 09:35 Est Cr Clr Drug Dosing 92.7 ml/min 07/19/18 09:35 Est GFR ( Amer) 84.5 07/19/18 09:35 Est GFR (Non-Af Amer) 72.9 07/19/18 09:35 BUN/Creatinine Ratio 17.6 (10-20) 07/19/18 09:35 Glucose 96 mg/dl (70-99) 07/19/18 09:35 Calcium 8.5 mg/dl (8.5-10.1) 07/19/18 09:35 Total Bilirubin 0.4 mg/dl (0.2-1) 07/18/18 22:10 AST 20 U/L (15-37) 07/18/18 22:10 ALT 20 U/L (12-78) 07/18/18 22:10 Alkaline Phosphatase 114 U/L (45-117) 07/18/18 22:10 Total Protein 8.0 gm/dl (6.4-8.2) 07/18/18 22:10 Albumin 4.0 gm/dl (3.4-5.0) 07/18/18 22:10 Globulin 4.0 gm/dl (2.5-4.0) 07/18/18 22:10 Albumin/Globulin Ratio 1.0 (0.9-2) 07/18/18 22:10 Lipase 155 U/L (73-393) 07/18/18 22:10 Urine Color Yellow 07/18/18 22:05 Urine Appearance Clear (Clear) 07/18/18 22:05 Urine pH 5.0 (4.5-7.5) 07/18/18 22:05 Ur Specific [place] 1.025 (1.000-1.030) 07/18/18 22:05 Urine Protein Negative (Negative) 07/18/18 22:05 Urine Glucose (UA) Negative (Negative) 07/18/18 22:05 Urine Ketones Negative (Negative) 07/18/18 22:05 Urine Blood Negative (Negative) 07/18/18 22:05 Urine Nitrite Negative (Negative) 07/18/18 22:05 Urine Bilirubin Negative (Negative) 07/18/18 22:05 Urine Urobilinogen Negative (Negative) 07/18/18 22:05 Ur Leukocyte Esterase Negative (Negative) 07/18/18 22:05 Blood Type A Positive 07/19/18 09:35 Antibody Screen NEGATIVE 07/19/18 09:35 Diagnostic Findings Chest x-ray: No acute pathology (1) Acute appendicitis Acute appendicitis type: unspecified acute appendicitis type Qualified Code(s): K35.80 - Unspecified acute appendicitis
[2018-07-20] MEDS: CHECK SCOPOLAMINE PATCH PLACEMENT SCH ×3 (02:11→15:23)
[2018-07-20] MEDS: metroNIDAZOLE 500 MG/100 ML BAG IV SCH (06:23)
[2018-07-20] MEDS ORDERED: LEVOTHYROXINE SODIUM 100 MCG TABLET PO SCH (06:30)
[2018-07-20 06:44] LABS: Hematocrit (blood only) 35.8 % (37-47); Hemoglobin 12.4 g/dL (12.0-16.0); Immature Granulocytes # (auto) 0.02 K/uL (0.00-0.02); Immature Granulocytes % (auto) 0.3 %; Lymphocytes # (auto) 0.51 K/uL (1.2-3.4); Lymphocytes % (auto) 6.7 %; Mean Corpuscular Hgb Conc 34.6 g/dL (32-36); Mean Corpuscular Volume 98.1 fL (80-100); Mean Platelet Volume 10.5 fL (7.4-10.4); Monocytes % (auto) 1.3 %; Neutrophils # (auto) 6.98 K/uL (1.4-6.5); Neutrophils % (auto) 91.7 %; Platelet Count 156 K/uL (130-400); RDW Coefficient of Variation 12.8 % (11.5-14.5); RDW Standard Deviation 45.8 fL (36.4-46.3); Red Blood Count 3.65 M/uL (4.2-5.4); Reticulocyte % 1.1 % (0.5-2.0); Reticulocytes # 0.04 10^6/uL (0.02-0.10); White Blood Count 7.61 K/uL (4.8-10.8)
[2018-07-20 06:51] LABS: INR 1.1 (0.9-1.1); Prothrombin Time 11.4 Seconds (9.0-12.0)
[2018-07-20] MEDS ORDERED: AMPHETAMINE ASP/SULF/DEXTRAMPH 20 MG TAB PO SCH (07:00)
[2018-07-20 07:24] LABS: BUN Creatinine Ratio 11.8 (10-20); Calcium 8.7 mg/dl (8.5-10.1); Creatinine Clr Calc Pharmacy 83.2 ml/min; Est GFR (African American) 74.2; Magnesium 2.1 mg/dl (1.8-2.4); Potassium 4.2 mmol/L (3.5-5.1)
[2018-07-20 07:27] LABS: Ferritin 68.9 ng/ml (8-388)
[2018-07-20] MEDS: SUCRALFATE 1 GM TAB PO SCH ×2 (07:36→11:35)
--- NOTE | 2018-07-20 08:28 | Anesthesiology Progress Note ---
Date of Service July 20, 2018 Anesthesia Post Procedure Vital Signs Vital Signs: Temp Pulse Pulse Pulse Resp BP BP 07/20/18 07:59 37.1 C 53 L 18 154/78 H 07/20/18 03:29 37.1 C 56 L 16 125/75 07/19/18 23:30 37 C 67 18 135/80 07/19/18 22:38 37.1 C 67 16 152/81 H 07/19/18 21:28 36.6 C 67 16 133/81 07/19/18 20:31 36.4 C L 64 16 145/80 H 07/19/18 20:01 37.2 C 71 20 157/92 H 07/19/18 19:45 62 9 L 07/19/18 19:40 64 7 L 146/87 H 07/19/18 19:35 64 16 151/85 H 07/19/18 19:32 36.6 C 66 16 151/85 H 07/19/18 19:30 63 16 143/92 H 07/19/18 19:25 73 14 139/86 07/19/18 19:22 69 16 07/19/18 19:21 62 17 145/89 H 07/19/18 19:20 63 17 07/19/18 19:15 71 16 153/87 H 07/19/18 19:11 70 17 151/89 H 07/19/18 19:10 71 20 07/19/18 19:06 70 19 160/96 H 07/19/18 19:05 70 20 07/19/18 19:02 73 16 166/93 H 07/19/18 19:00 81 19 07/19/18 18:57 86 20 186/112 H 07/19/18 18:55 36.9 C 86 87 23 184/97 H 186/112 H 07/19/18 18:54 93 H 20 07/19/18 17:08 37.3 C 61 18 156/97 H 07/19/18 15:06 37.1 C 59 L 20 148/86 H 07/19/18 11:43 37.2 C 62 14 151/93 H Pulse Ox 07/20/18 07:59 95 07/20/18 03:29 92 07/19/18 23:30 93 07/19/18 22:38 95 07/19/18 21:28 91 07/19/18 20:31 95 07/19/18 20:01 95 07/19/18 19:45 96 07/19/18 19:40 96 07/19/18 19:35 97 07/19/18 19:32 96 07/19/18 19:30 94 07/19/18 19:25 95 07/19/18 19:22 94 07/19/18 19:21 89 L 07/19/18 19:20 92 07/19/18 19:15 92 07/19/18 19:11 95 07/19/18 19:10 94 07/19/18 19:06 95 07/19/18 19:05 94 07/19/18 19:02 94 07/19/18 19:00 92 07/19/18 18:57 96 07/19/18 18:55 92 07/19/18 18:54 92 07/19/18 17:08 94 07/19/18 15:06 90 07/19/18 11:43 94 Pain Intensity Right Abdomen: Pain Intensity: 6 Notes Mental Status: alert / awake / arousable Patient Amnestic to Procedure: Yes Nausea / Vomiting: adequately controlled Pain: adequately controlled Airway Patency, RR, SpO2: stable & adequate BP & HR: stable & adequate Hydration State: stable & adequate Anesthetic Complications: no major complications apparent and Pt Satisfied with anesthetic care
--- NOTE | 2018-07-20 08:52 | Progress Note ---
Date of Service July 20, 2018 Assessment & Plan (1) Acute appendicitis: 58 yo female with acute appendicitis s/p 07/19/18 lap appy. She is doing well post-op. - Regular diet - Analagesia PRN - No further abx needed - Encourage ambulation, IS use - No lifting > 15 pounds x 4 weeks post-op - No soaking in standing bodies of water x 2 weeks post op - d/c home today - f/u in clinic in 2 weeks Acute appendicitis type: unspecified acute appendicitis type Qualified Code(s): K35.80 - Unspecified acute appendicitis (2) Chronic anticoagulation: On Coumadin for hx of multiple DVTs and PE - Appreciate Hospitalist assistance - Okay for patient to be anticoagulated at this time - Continue Lovenox 60 mg daily until INR is therapeutic - Coumadin dosing per Hospitalist and anticoagulation clinic Present on Admission?: Yes (3) History of pulmonary embolism: Present on Admission?: Yes (4) History of DVT (deep vein thrombosis): Subjective Patient reports mild abdominal pain Denies nausea/vomiting Tolerated diet last night Denies chest pain and dyspnea Physical Exam Vital Signs (Past 24 Hours): Last Vital Signs Temp 37.1 C 07/20/18 07:59 Pulse 53 L 07/20/18 07:59 Resp 18 07/20/18 07:59 BP 154/78 H 07/20/18 07:59 Pulse Ox 95 07/20/18 07:59 Constitutional: no acute distress Respiratory: normal respiratory effort Cardiovascular: Rate/Rhythm: regular rate and regular rhythm Gastrointestinal (Abdomen): soft, nondistended, appropriately tender, incisions clean/intact with overlying Dermabond, ecchymosis around incisions Results & Data Laboratory Results 07/20/18 07/20/18 07/20/18 Range/Units 06:26 06:26 06:26 WBC (4.8-10.8) K/uL RBC (4.2-5.4) M/uL Hgb (12.0-16.0) g/dL Hct (37-47) % MCV (80-100) fL MCH (25-34) pg MCHC (32-36) g/dL RDW Std Deviation (36.4-46.3) fL RDW Coeff of Jesus (11.5-14.5) % Plt Count (130-400) K/uL MPV (7.4-10.4) fL Immature Gran % (Auto) % Neut % (Auto) % Lymph % (Auto) % [place] % (Auto) % Eos % (Auto) % Baso % (Auto) % Reticulocyte % (Auto) (0.5-2.0) % Immature Gran # (Auto) (0.00-0.02) K/uL Neut # (Auto) (1.4-6.5) K/uL Lymph # (Auto) (1.2-3.4) K/uL [place] # (Auto) (0.11-0.59) K/uL Eos # (Auto) (0-0.5) K/uL Baso # (Auto) (0-0.2) K/uL Reticulocyte # (0.02-0.10) 10^6/uL PT 11.4 (9.0-12.0) Seconds INR 1.1 (0.9-1.1) Sodium 140 (136-145) mmol/L Potassium 4.2 D (3.5-5.1) mmol/L Chloride 108 H (98-107) mmol/L Carbon Dioxide 27 (21-32) mmol/L Anion Gap 5.0 (3-11) BUN 12 (7-18) mg/dl Creatinine 0.98 (0.6-1.2) mg/dl Est Cr Clr Drug Dosing 83.2 ml/min Est GFR ( Amer) 74.2 Est GFR (Non-Af Amer) 64.0 BUN/Creatinine Ratio 11.8 (10-20) Glucose 136 H (70-99) mg/dl Calcium 8.7 (8.5-10.1) mg/dl Magnesium 2.1 (1.8-2.4) mg/dl Iron 40 (35-150) mcg/dl TIBC 232 L (250-450) mcg/dl Transferrin 187 L (200-360) mg/dl Ferritin 68.9 (8-388) ng/ml Vitamin B12 Pending Folate Pending Blood Type Antibody Screen 07/20/18 07/19/18 07/19/18 Range/Units 06:26 16:15 09:35 WBC 7.61 (4.8-10.8) K/uL RBC 3.65 L (4.2-5.4) M/uL Hgb 12.4 (12.0-16.0) g/dL Hct 35.8 L (37-47) % MCV 98.1 (80-100) fL MCH 34.0 (25-34) pg MCHC 34.6 (32-36) g/dL RDW Std Deviation 45.8 (36.4-46.3) fL RDW Coeff of Jesus 12.8 (11.5-14.5) % Plt Count 156 (130-400) K/uL MPV 10.5 H (7.4-10.4) fL Immature Gran % (Auto) 0.3 % Neut % (Auto) 91.7 % Lymph % (Auto) 6.7 % [place] % (Auto) 1.3 % Eos % (Auto) 0.0 % Baso % (Auto) 0.0 % Reticulocyte % (Auto) 1.1 (0.5-2.0) % Immature Gran # (Auto) 0.02 (0.00-0.02) K/uL Neut # (Auto) 6.98 H (1.4-6.5) K/uL Lymph # (Auto) 0.51 L (1.2-3.4) K/uL [place] # (Auto) 0.10 L (0.11-0.59) K/uL Eos # (Auto) 0.00 (0-0.5) K/uL Baso # (Auto) 0.00 (0-0.2) K/uL Reticulocyte # 0.04 (0.02-0.10) 10^6/uL PT 11.2 (9.0-12.0) Seconds INR 1.1 (0.9-1.1) Sodium (136-145) mmol/L Potassium (3.5-5.1) mmol/L Chloride (98-107) mmol/L Carbon Dioxide (21-32) mmol/L Anion Gap (3-11) BUN (7-18) mg/dl Creatinine (0.6-1.2) mg/dl Est Cr Clr Drug Dosing ml/min Est GFR ( Amer) Est GFR (Non-Af Amer) BUN/Creatinine Ratio (10-20) Glucose (70-99) mg/dl Calcium (8.5-10.1) mg/dl Magnesium (1.8-2.4) mg/dl Iron (35-150) mcg/dl TIBC (250-450) mcg/dl Transferrin (200-360) mg/dl Ferritin (8-388) ng/ml Vitamin B12 Folate Blood Type A Positive Antibody Screen NEGATIVE 07/19/18 07/19/18 07/19/18 Range/Units 09:35 09:35 09:35 WBC 6.54 (4.8-10.8) K/uL RBC 3.30 L (4.2-5.4) M/uL Hgb 11.2 L D (12.0-16.0) g/dL Hct 32.7 L (37-47) % MCV 99.1 (80-100) fL MCH 33.9 (25-34) pg MCHC 34.3 (32-36) g/dL RDW Std Deviation 47.3 H (36.4-46.3) fL RDW Coeff of Jesus 13.1 (11.5-14.5) % Plt Count 125 L (130-400) K/uL MPV 10.1 (7.4-10.4) fL Immature Gran % (Auto) 0.3 % Neut % (Auto) 60.7 % Lymph % (Auto) 29.4 % [place] % (Auto) 7.8 % Eos % (Auto) 1.5 % Baso % (Auto) 0.3 % Reticulocyte % (Auto) (0.5-2.0) % Immature Gran # (Auto) 0.02 (0.00-0.02) K/uL Neut # (Auto) 3.97 (1.4-6.5) K/uL Lymph # (Auto) 1.92 (1.2-3.4) K/uL [place] # (Auto) 0.51 (0.11-0.59) K/uL Eos # (Auto) 0.10 (0-0.5) K/uL Baso # (Auto) 0.02 (0-0.2) K/uL Reticulocyte # (0.02-0.10) 10^6/uL PT 26.8 H (9.0-12.0) Seconds INR 2.8 H (0.9-1.1) Sodium 141 (136-145) mmol/L Potassium 3.6 (3.5-5.1) mmol/L Chloride 108 H (98-107) mmol/L Carbon Dioxide 28 (21-32) mmol/L Anion Gap 5.0 (3-11) BUN 15 (7-18) mg/dl Creatinine 0.88 (0.6-1.2) mg/dl Est Cr Clr Drug Dosing 92.7 ml/min Est GFR ( Amer) 84.5 Est GFR (Non-Af Amer) 72.9 BUN/Creatinine Ratio 17.6 (10-20) Glucose 96 (70-99) mg/dl Calcium 8.5 (8.5-10.1) mg/dl Magnesium (1.8-2.4) mg/dl Iron (35-150) mcg/dl TIBC (250-450) mcg/dl Transferrin (200-360) mg/dl Ferritin (8-388) ng/ml Vitamin B12 Folate Blood Type Antibody Screen
[2018-07-20] MEDS ORDERED: PREGABALIN 25 MG CAP PO SCH (09:00)
[2018-07-20] MEDS: OXYCODONE HCL IR 5 MG TAB (IMMEDIATE RELEASE) PO PRN ×2 (09:14→15:27)
[2018-07-20 09:46] LABS: Folate (Folic Acid) 12.45 ng/ml (>5.38)
[2018-07-20] MEDS ORDERED: WARFARIN SOD 5 MG TAB PO SCH (16:00)
[2018-07-20] MEDS ORDERED: ENOXAPARIN INJ 40 MG/0.4 ML SYR SQ SCH (21:00)
[2018-07-20] MEDS ORDERED: ENOXAPARIN INJ 60 MG/0.6 ML SYR SQ SCH (21:00)
--- NOTE | 2018-07-21 14:36 | Discharge Summary ---
Date of Service July 31, 2018 Admission HPI Per Admitting Provider Patient is a 58 yo morbidly obese female with history of PE and DVTs (most recently approximately 4 years ago) on Coumadin who presented with acute right sided abdominal pain after eating a hamburger at [employer]. RUQ U/S was completed, which was unremarkable. CT scan was then obtained, which showed appendicitis. She states pain is in her RLQ and radiates to her RUQ. She also reports diarrhea, which started yesterday. She also said she had mild RLQ pain one day prior. Otherwise, no prior similar symptoms, no prior GI issues. No sick contacts. Discharge Data Consultations 07/19/18 01:31 ED Decision to Admit Stat 07/19/18 19:32 Consult Internal Medicine Routine Procedures Performed Operation Date: 07/19/18 07:30 Actual Procedures p Laparoscopic Appendectomy(Not Applicable) - Luz Elena Loza MD
--- NOTE | 2018-07-26 11:14 | Discharge Summary ---
Date of Service July 26, 2018 Admission HPI Per Admitting Provider Patient is a 58 yo morbidly obese female with history of PE and DVTs (most recently approximately 4 years ago) on Coumadin who presented with acute right sided abdominal pain after eating a hamburger at [employer]. RUQ U/S was completed, which was unremarkable. CT scan was then obtained, which showed appendicitis. She states pain is in her RLQ and radiates to her RUQ. She also reports diarrhea, which started yesterday. She also said she had mild RLQ pain one day prior. Otherwise, no prior similar symptoms, no prior GI issues. No sick contacts. Principal Diagnosis Acute Appendicitis Discharge Data Allergies Allergy/AdvReac Type Severity Reaction Status Date / Time Bactrim Allergy Intermediate break out Verified 12/15/17 05:35 in hives sulfamethoxazole Allergy Intermediate RASH Verified 07/28/18 16:19 trimethoprim Allergy Intermediate break out Verified 07/28/18 16:19 in [facility] Sulfa (Sulfonamide Allergy Mild RASH Verified 07/28/18 16:19 Antibiotics) phytonadione (vitamin K1) Allergy Difficulty Verified 07/28/18 16:19 Breathing amoxicillin AdvReac Intermediate SEVERE Verified 07/28/18 16:19 NAUSEA AND VOMITING tetracycline AdvReac Intermediate NAUSEA/VOMI Verified 07/28/18 16:19 TING clavulanic acid AdvReac Unknown SEVERE Verified 07/28/18 16:19 NAUSEA AND VOMITING codeine AdvReac Unknown VOMIT-WAS Verified 07/28/18 16:19 ON EMPTY STOMACH Consultations 07/19/18 01:31 ED Decision to Admit Stat 07/19/18 19:32 Consult Internal Medicine Routine Procedures Performed Operation Date: 07/19/18 07:30 Actual Procedures p Laparoscopic Appendectomy(Not Applicable) - Luz Elena Loza MD Ordered Studies 07/18/18 22:44 US gallbladder Urgent 07/19/18 00:05 CT abd pelvis wo con Stat Hospital Course (1) Acute appendicitis: Patient was admitted to medical/surgical floor from emergency room as her INR was elevated and she was given IV Vitamin K. Shortly after administration of Vitamin K (at same time of Narcotic) she developed hot flashes and some shortness of breath. Vitamin K was stopped and was given Benedryl which resolved her symptoms. Therefore she did not receive much of the infusion. INR was 3.5 and went down to 2.8. She then was given another 5 mg of PO Vitamin K and Kcentra IV to decrease her INR preoperatively. She was taken to operating room for laparoscopic appendectomy once her INR was appropriate at 1.1. Patient was found to have acute appendicitis without rupture or abscess. She tolerated procedure well and was transferred to recovery and then to medical/surgical floor for post op care. Diet was advanced to clear liquids, IV Fluids were continued, PO Percocet with breakthrough Morphine prn pain, IV Zofran prn nausea, activity as tolerated, SCDs. POD # 1 vitals stable, pain controlled and minimal, tolerating diet, urinating without difficulty. INR was 1.1. Patient was doing well and diet was advanced to regular diet. She was discharged home on POD # 1 in stable condition with Rx for Lovenox 60 mg subcutaneous daily and advised to follow-up at Coumadin clinic on Monday for repeat INR. She was advised to resume her normal Coumadin regimen. Total Time Total Time Spent Total Time Spent (In Minutes): 45 Total Time Includes: Examination of the Patient, Discharge Planning, Medication Reconciliation and Communication With Other Providers Discharge Plan Discharge Items Patient Disposition: Home - Self-Care Reason For Visit: ACUTE APPENDICITIS Discharge Diagnosis: Same Discharge Goals: Decrease discomfort and Increase independence Activity: Per 'Additional Instructions' section Non-emergency contact: Surgeon Call non-emergency contact if: your symptoms worsen, your pain is not controlled, your pain is worsening, your pain is concerning for you, you have a fever, your temperature is above 101, your wound has increased redness and your wound has increased drainage Follow-up/Referrals: Eligio Myles V. DRubinO. [Primary Care Provider] - Luz Elena Loza MD [Physician] - (Follow-up in surgical office in 2 weeks, please call office at [phone] to make an appointment) Diet: Regular Addtl Provider Instructions: No heavy lifting over 15 pounds for 3-4 weeks No strenuous activity until cleared by surgeon No submerging incisions underwater for 2 weeks or until healed No driving while taking narcotic pain medication or until you are pain free You may shower. Gently clean incisions with soap and water and pat dry. You have surgical glue on incisions so do not pick off. It will come off on its own. Walking and light activity encouraged multiple daily to prevent blood clots from forming in your legs You will be given prescription for narcotic pain medication for moderate to severe pain. Take as directed. This medication may cause drowsiness and consti pation. Take extra strength Tylenol (650 mg) every 6 hours for the first 3 days and then as needed for pain control. To avoid constipation: drink plenty of fluids daily, avoid foods that constipat e, and daily walking. Take OTC stool softener (Colace) daily or twice a day while taking pain medication. If those measures do not work, you may take Miralax or Milk of Magnesia. Follow-up in surgical office in 2 weeks, please call office at [phone] to make an appointment You should resume your Coumadin regimen. You will need to take Lovenox subcutaneously daily until your INR is in therapeutic range. You will need to have INR checked on Monday. Please call your coumadin clinic to schedule INR blood draw and to determine further need of Lovenox. Prescriptions: Continued sucralfate [Carafate] 1 gram Tablet 1 g PO AMHS RF: 0 acyclovir 400 mg Tablet 400 mg PO BID RF: 0 lorazepam 0.5 mg Tablet 0.5 mg PO DAILY PRN (Reason: Anxiety) RF: 0 pantoprazole 40 mg Tablet,Delayed Release (Dr/Ec) 40 mg PO QPM RF: 0 dextroamphetamine-amphetamine [Adderall] 20 mg Tablet 1.25 tabs PO BID RF: 0 warfarin [Coumadin] 5 mg Tablet 5 mg PO [id number] RF: 0 warfarin [Coumadin] 5 mg Tablet 7.5 mg PO WK RF: 0 albuterol sulfate 90 mcg/actuation Hfa Aerosol Inhaler 2 puff INHALATION Q4H PRN (Reason: Shortness Of Breath Or Wheezing) RF: 0 fluticasone [Flonase Allergy Relief] 50 mcg/actuation [place],Suspension 2 spray INTRANASAL BID RF: 0 No Action levothyroxine 88 mcg Tablet 88 mcg PO DAILY RF: 0 duloxetine [Cymbalta] 30 mg Capsule,Delayed Release(Dr/Ec) 30 mg PO DAILY RF: 0 atorvastatin 20 mg 20 mg PO DAILY RF: 0 Stand-Alone Forms: Call Back Authorization, [facility], Opioid Pain [facility], Work/School Release (Inpt) Julio/Other Patient Handouts: DVT Complications, Surgery Prevent DVT After Discharge Orders: Discharge Order (Routine); Ordered 07/20/18 Ordered By: Kathy Easley Admission Data Admit Date/Time: 07/19/18 02:22 Attending Provider: Luz Elena Loza Admit Provider: Luz Elena Loza Primary Care Provider: Eligio Myles V. Other Providers: Luz Elena Loza ; Lorenzo Mcarthur Service: Surgical Services Other Interventions: Discharge Summary Assessment (RN) Last Done: 07/20/18 11:38 Pending Studies at Discharge: Yes (appendix pathology, will be reveiwed at follow-up visit) DC Date/Time DO NOT enter until pt leaves facility: 07/20/18 15:56
== END 2018-07-20 15:56 | disposition home or self-care (01) ==
LOC: 3N 21:56 → ED 21:56 → 3N 07-19 03:03

== ENCOUNTER 2018-07-28 15:18 | Inpatient (IN) ==
[2018-07-28] MEDS ORDERED: ONDANSETRON INJ 2 MG/ML 2 ML VIAL IV STA (15:33)
[2018-07-28] MEDS ORDERED: MoRPHine SULFATE 4 MG/ML 1 ML CARP\\VIAL IV STA ×2 (15:33→17:49)
[2018-07-28 16:00] LABS: Basophils # (auto) 0.03 K/uL (0-0.2); Basophils % (auto) 0.3 %; Eosinophils # (auto) 0.16 K/uL (0-0.5); Eosinophils % (auto) 1.9 %; Hematocrit (blood only) 37.7 % (37-47); Hemoglobin 12.8 g/dL (12.0-16.0); Immature Granulocytes # (auto) 0.02 K/uL (0.00-0.02); Immature Granulocytes % (auto) 0.2 %; Lymphocytes # (auto) 2.23 K/uL (1.2-3.4); Mean Corpuscular Volume 99.2 fL (80-100); Mean Platelet Volume 10.9 fL (7.4-10.4); Monocytes # (auto) 0.53 K/uL (0.11-0.59); Monocytes % (auto) 6.2 %; Neutrophils # (auto) 5.61 K/uL (1.4-6.5); Neutrophils % (auto) 65.4 %; Platelet Count 200 K/uL (130-400); RDW Coefficient of Variation 13.4 % (11.5-14.5); RDW Standard Deviation 48.5 fL (36.4-46.3); White Blood Count 8.58 K/uL (4.8-10.8)
[2018-07-28 16:04] LABS: Appearance Urine Clear (Clear); Blood Urine Negative (Negative); Color Urine Dark Yellow; Glucose Urine UA Negative (Negative); Ketones Urine Negative (Negative); Leukocyte Esterase Urine Negative (Negative); Nitrite Urine Negative (Negative); Protein Urine Negative (Negative); Specific Gravity Urine > 1.045 (1.000-1.030); Urobilinogen Urine Negative (Negative); pH Urine 5.5 (4.5-7.5)
[2018-07-28 16:11] LABS: Bilirubin Urine Negative (Negative); Ictotest Urine Negative (Negative)
[2018-07-28 16:20] LABS: INR 3.7 (0.9-1.1); Partial Thromboplastin Ratio 1.5; Partial Thromboplastin Time 41.5 Seconds (21.0-31.0); Prothrombin Time 34.7 Seconds (9.0-12.0)
[2018-07-28 16:26] LABS: Albumin Level 3.7 gm/dl (3.4-5.0); BUN Creatinine Ratio 20.5 (10-20); Calcium 9.1 mg/dl (8.5-10.1); Creatinine Clr Calc Pharmacy 93.2 ml/min; Est GFR (African American) 85.7; Potassium 3.5 mmol/L (3.5-5.1)
[2018-07-28 16:29] LABS: Bilirubin,Total 0.6 mg/dl (0.2-1); Globulin 3.9 gm/dl (2.5-4.0); Total Protein 7.6 gm/dl (6.4-8.2)
[2018-07-28] MEDS ORDERED: IOVERSOL 100ml IV PRN (17:06)
--- NOTE | 2018-07-28 17:26 | CT Scan Report ---
ABDOMEN AND PELVIS CT WITH IV CONTRAST CT DOSE: 1495.67 mGy.cm HISTORY: lower abd pain s/p appe eval for abscess/hematoma TECHNIQUE: Multiaxial CT images of the abdomen and pelvis were performed following the use of intrave nous contrast. A dose lowering technique was utilized adhering to the principles of ALARA. COMPARISON STUDY: Abdomen and pelvis CT 07/19/2018. FINDINGS: The lung bases are clear. No pneumoperitoneum. No pneumatosis. The liver, gallbladder, panc reas, spleen, adrenal glands, and kidneys are unremarkable. No hydronephrosis. No retroperitoneal lym phadenopathy. The bladder, uterus, bilateral adnexa are unremarkable. No pelvic free fluid. No intra- abdominal abscess identified. Status post appendectomy. A few colonic diverticula. No evidence for di verticulitis. No bowel wall thickening or obstruction. There is a left rectus sheath hematoma measuri ng 12 x 5 x 3 cm. There is also a subcutaneous infraumbilical midline hematoma measuring 6.2 x 6.0 cm . Mild skin thickening and subcutaneous fat and within the lower abdominal wall. IMPRESSION: 1. A subcutaneous infraumbilical midline hematoma and a left rectus sheath hematoma as described abov e. 2. Interval appendectomy. No intra-abdominal abscess identified. 3. No bowel wall thickening or obstruction. Electronically signed by: Jose Miguel Aguilar M.D. 07/28/2018 5:25 PM
[2018-07-28] MEDS ORDERED: PHYTONADIONE 5 MG TAB PO STA (18:02)
[2018-07-28] MEDS ORDERED: ACETAMINOPHEN 1,000 MG/100 ML VIAL IV PRN (19:28)
[2018-07-28] MEDS ORDERED: LORazepam 0.5 MG/1 ML VIAL IV STA (19:28)
[2018-07-28] MEDS ORDERED: LORazepam 2 MG/4 ML VIAL ONE (19:32)
--- NOTE | 2018-07-28 19:38 | Surgery Consultation ---
Date of Consultation July 28, 2018 Assessment & Plan (1) Abdominal wall hematoma: pt is a S/P laparoscopic appendectomy, pt is on coumadin, pt developed abdominal wall hematoma, plan, I agree with hospitalist will admitted hospital, hold coumadin for 1-2 days, repeat INR tomorrow, will F/U History of Present Illness History of Present Illness pt is a 58 year old female who is s/p laparoscopic appendectomy 10 days ago, now pt comes to ER with lower abdominal pain, pt denies fever, no diarrhea, pt is on coumadin for her PE, pt had INR check on 07/23/2018, INR was 1.89, she was told to take 10mg coumadin, since then pt feels more lower abdominal pain, today, pt had CT scan done at ER, showed- abdominal wall hematoma, size about 5x6cm, Allergies Allergy/AdvReac Type Severity Reaction Status Date / Time Bactrim Allergy Intermediate break out Verified 12/15/17 05:35 in [facility] sulfamethoxazole Allergy Intermediate RASH Verified 07/28/18 16:19 trimethoprim Allergy Intermediate break out Verified 07/28/18 16:19 in [facility] Sulfa (Sulfonamide Allergy Mild RASH Verified 07/28/18 16:19 Antibiotics) phytonadione (vitamin K1) Allergy Difficulty Verified 07/28/18 16:19 Breathing amoxicillin AdvReac Intermediate SEVERE Verified 07/28/18 16:19 NAUSEA AND VOMITING tetracycline AdvReac Intermediate NAUSEA/VOMI Verified 07/28/18 16:19 TING clavulanic acid AdvReac Unknown SEVERE Verified 07/28/18 16:19 NAUSEA AND VOMITING codeine AdvReac Unknown VOMIT-WAS Verified 07/28/18 16:19 ON EMPTY STOMACH Home Medications Home Medications Medication Instructions Recorded Confirmed Type acyclovir 400 mg PO BID 07/18/18 07/28/18 History albuterol sulfate 2 puff INHALATION Q4H PRN 07/18/18 07/28/18 History dextroamphetamine-amphetamine 1.25 tabs PO BID 07/18/18 07/28/18 History [Adderall] fluticasone [Flonase Allergy 2 spray INTRANASAL BID 07/18/18 07/28/18 History Relief] lorazepam 0.5 mg PO DAILY PRN 07/18/18 07/28/18 History pantoprazole 40 mg PO QPM 07/18/18 07/28/18 History sucralfate [Carafate] 1 g PO AMHS 07/18/18 07/28/18 History warfarin [Coumadin] 5 mg PO 6XWK 07/18/18 07/28/18 History warfarin [Coumadin] 7.5 mg PO WK 07/18/18 07/28/18 History duloxetine [Cymbalta] 30 mg PO DAILY 07/28/18 07/28/18 History levothyroxine 88 mcg PO DAILY 07/28/18 07/28/18 History Patient History Social History Preferred Language: Kazakh Beliefs That Will Affect Care: None Current Living Situation: Spouse and Parent Feels Safe at Home: Yes Smoking Status: Never smoker Hx Alcohol Use: Yes Hx Substance Use: No Review of Systems Constitutional: as per Subjective / HPI Ear, Nose, Mouth, Throat: as per Subjective / HPI Respiratory: as per Subjective / HPI PE 4 years ago Cardiovascular: as per Subjective / HPI Gastrointestinal: as per Subjective / HPI S/P lap appy Genitourinary (Female): as per Subjective / HPI Neurologic: as per Subjective / HPI Psychiatric: as per Subjective / HPI Endocrine: as per Subjective / HPI Hematologic / Lymphatic: as per Subjective / HPI Physical Exam Vital Signs (Past 24 Hours): Last Vital Signs Temp 36.9 C 07/28/18 15:23 Pulse 61 07/28/18 18:16 Resp 16 07/28/18 18:16 BP 146/82 H 07/28/18 18:16 Pulse Ox 98 07/28/18 18:16 Constitutional: WD/WN, vitals as above well developed and well nourished Neck: trachea midline, no thyromegaly Respiratory: normal respiratory effort, lungs clear to auscultation normal respiratory effort Cardiovascular: RRR, no murmur, no edema Rate/Rhythm: regular rate Heart Sounds: normal S1 and normal S2 Gastrointestinal (Abdomen): Percussion/Palpation: + abdomen tender and abdomen soft tenderness at lower, some hematoma at lower abdomen incision site, size 5x6cm, no redness, no drainage from incision site, Neurologic: awake Psychiatric: Orientation: alert and oriented x 3 Results & Data Laboratory Results Abnormal lab results 07/28/18 07/28/18 07/28/18 Range/Units 15:45 15:45 15:45 RBC 3.80 L (4.2-5.4) M/uL RDW Std Deviation 48.5 H (36.4-46.3) fL MPV 10.9 H (7.4-10.4) fL PT 34.7 H (9.0-12.0) Seconds INR 3.7 H (0.9-1.1) APTT 41.5 H (21.0-31.0) Seconds BUN/Creatinine Ratio 20.5 H (10-20) AST 39 H (15-37) U/L Ur Specific [place] (1.000-1.030) 07/28/18 Range/Units 15:45 RBC (4.2-5.4) M/uL RDW Std Deviation (36.4-46.3) fL MPV (7.4-10.4) fL PT (9.0-12.0) Seconds INR (0.9-1.1) APTT (21.0-31.0) Seconds BUN/Creatinine Ratio (10-20) AST (15-37) U/L Ur Specific [place] > 1.045 H (1.000-1.030) Diagnostic Findings ABDOMEN AND PELVIS CT WITH IV CONTRAST CT DOSE: 1495.67 mGy.cm HISTORY: lower abd pain s/p appe eval for abscess/hematoma TECHNIQUE: Multiaxial CT images of the abdomen and pelvis were performed following the use of intravenous contrast. A dose lowering technique was utilized adhering to the principles of ALARA. COMPARISON STUDY: Abdomen and pelvis CT 07/19/2018. FINDINGS: The lung bases are clear. No pneumoperitoneum. No pneumatosis. The liver, gallbladder, pancreas, spleen, adrenal glands, and kidneys are unremar kable. No hydronephrosis. No retroperitoneal lymphadenopathy. The bladder, uterus, bilateral adnexa are unremarkable. No pelvic free fluid. No intra- abdominal abscess identified. Status post appendectomy. A few colonic diverticula. No evidence for diverticulitis. No bowel wall thickening or obstruction. There is a left rectus sheath hematoma measuring 12 x 5 x 3 cm. There is also a subcutaneous infraumbilical midline hematoma measuring 6.2 x 6.0 cm. Mild skin thickening and subcutaneous fat and within the lower abdominal wall. IMPRESSION: 1. A subcutaneous infraumbilical midline hematoma and a left rectus sheath hematoma as described above. 2. Interval appendectomy. No intra-abdominal abscess identified. 3. No bowel wall thickening or obstruction. (1) Abdominal wall hematoma Encounter type: initial encounter Qualified Code(s): S30.1XXA - Contusion of abdominal wall, initial encounter
--- NOTE | 2018-07-28 19:46 | History & Physical Report ---
Date of Service July 28, 2018 Assessment & Plan (1) Abdominal wall hematoma: (2) Supratherapeutic INR: This is a 58-year-old female with a PMH of asthma, history of multiple PEs on Coumadin, recent appendectomy and other medical problems listed below who presents with worsening abdominal pain and bruising x 2 days and was found to have infraumbilical hematoma. -Underwent laparoscopic appendectomy 9 days ago and received postop bridging with Lovenox before anticoagulation clinic resumed Coumadin on 07/23 -Developed abdominal wall hematoma yesterday, now is approximately 5x6cm in size -CT abd/pelvis with: * 1. A subcutaneous infraumbilical midline hematoma and a left rectus sheath hematoma as described above. * 2. Interval appendectomy. No intra-abdominal abscess identified. * 3. No bowel wall thickening or obstruction. -INR supratherapeutic at 3.7. Given 10mg PO Vit K in ED -Surgery consulted, recommend holding coumadin for 1-2 days. Will continue to follow -Hgb stable at 12.8. No melena or hematochezia -Pain control, anti-emetics -Recheck INR in AM (3) History of pulmonary embolism: H/o multiple DVTs/PE is in past, most recent PE was 4 years ago -Hold coumadin for now -Recheck INR in AM (4) Anxiety: Given 0.5 IV Ativan in ED. Continue home ativan 0.5mg PO BID PRN (5) Asthma: Stable. Continue inhalers PRN (6) Acid reflux: Continue PPI, Carafate (7) Hypothyroid: Continue levothyroxine DVT Ppx: Holding coumadin for supratherapeutic INR Code status: FULL PCP: Shar Dispo: Admitted to [facility]. Plan to return home once medically stable. Patient seen in collaboration with Dr. Roger. Please see addendum. History of Present Illness Chief Complaint: Abdominal pain, hematoma Primary Care Provider: Eligio Myles This is a 58-year-old female with a PMH of asthma, history of multiple PEs on Coumadin, recent appendectomy and other medical problems listed below who presents with worsening abdominal pain and bruising x 2 days. Underwent laparoscopic appendectomy 10 days ago and received postop bridging with Lovenox before anticoagulation clinic resumed Coumadin on 07/23. Patient has been experiencing mild abdominal pain since surgery, but has been following with surgical clinic who felt that pain was normal postoperative pain. Yesterday, patient started to have worsening, cramping pain with associated bloating and nausea. Also noticed a small area of bruising under her umbilicus. 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 Came to ED for further evaluation. Has history of multiple PEs, most recently 4 years ago. Has been on Coumadin without issue. In ED, patient was found to be afebrile, normotensive and without leukocytosis. CT of abdomen/pelvis with evidence of subcutaneous infraumbilical hematoma. No evidence of abscess, bowel thickening or obstruction. ED provider consulted with Dr. Cardenas, who recommended [address] K[address]. Baker of surgical service consulted and examined in the ED with recommendation of holding Coumadin for 1-2 days. Patient currently endorsing 4/10 abdominal pain as well as feeling anxious and nauseous. Denies any fever, chills, lightheadedness, headache, chest pain, palpitations, shortness of breath, vomiting, dysuria, diarrhea or constipation. Last bowel movement was yesterday and was normal color and caliber. Allergies Allergy/AdvReac Type Severity Reaction Status Date / Time Bactrim Allergy Intermediate break out Verified 12/15/17 05:35 in [facility] sulfamethoxazole Allergy Intermediate RASH Verified 07/28/18 16:19 trimethoprim Allergy Intermediate break out Verified 07/28/18 16:19 in [facility] Sulfa (Sulfonamide Allergy Mild RASH Verified 07/28/18 16:19 Antibiotics) phytonadione (vitamin K1) Allergy Difficulty Verified 07/28/18 16:19 Breathing amoxicillin AdvReac Intermediate SEVERE Verified 07/28/18 16:19 NAUSEA AND VOMITING tetracycline AdvReac Intermediate NAUSEA/VOMI Verified 07/28/18 16:19 TING clavulanic acid AdvReac Unknown SEVERE Verified 07/28/18 16:19 NAUSEA AND VOMITING codeine AdvReac Unknown VOMIT-WAS Verified 07/28/18 16:19 ON EMPTY STOMACH Home Medications Home Medications Medication Instructions Recorded Confirmed Type acyclovir 400 mg PO BID 07/18/18 07/28/18 History albuterol sulfate 2 puff INHALATION Q4H PRN 07/18/18 07/28/18 History dextroamphetamine-amphetamine 1.25 tabs PO BID 07/18/18 07/28/18 History [Adderall] fluticasone [Flonase Allergy 2 spray INTRANASAL BID 07/18/18 07/28/18 History Relief] lorazepam 0.5 mg PO DAILY PRN 07/18/18 07/28/18 History pantoprazole 40 mg PO QPM 07/18/18 07/28/18 History sucralfate [Carafate] 1 g PO AMHS 07/18/18 07/28/18 History warfarin [Coumadin] 5 mg PO 6XWK 07/18/18 07/28/18 History warfarin [Coumadin] 7.5 mg PO WK 07/18/18 07/28/18 History duloxetine [Cymbalta] 30 mg PO DAILY 07/28/18 07/28/18 History levothyroxine 88 mcg PO DAILY 07/28/18 07/28/18 History Past Med/Surg History Medical History Asthma (Chronic) Hypothyroid (Chronic) Acid reflux (Chronic) Anxiety (Chronic) Arthritis (Chronic) Herpes (Chronic) Abdominal wall hematoma (Acute) Hypertension (Chronic) Surgical History S/P appendectomy (Resolved) Hx of tonsillectomy (Acute) H/O sinus surgery (Resolved) History of ankle surgery (Resolved) Hx of breast reduction, elective (Resolved) Social History Preferred Language: [place] Communication Ability: Effective Costume Shop Coordinator Required: No Beliefs That Will Affect Care: None Current Living Situation: Spouse and Parent Feels Safe at Home: Yes Safety Concerns: Feels Safe At This Time Smoking Status: Never smoker Hx Alcohol Use: Yes Hx Substance Use: No Review of Systems All systems reviewed & are unremarkable except as noted in HPI & below Physical Exam Vital Signs (Past 24 Hours): Last Vital Signs Temp 36.9 C 07/28/18 15:23 Pulse 61 07/28/18 18:16 Resp 16 07/28/18 18:16 BP 146/82 H 07/28/18 18:16 Pulse Ox 98 07/28/18 18:16 Physical Exam: General Appearance: WD/WN, no apparent distress, anxious Head: normocephalic, atraumatic Eyes: normal inspection, PERRL, EOMI ENT: hearing grossly normal, pharynx normal (moist mucous membranes) Neck: supple, no JVD, no adenopathy Respiratory/Chest: lungs clear to auscultation. No wheezes, rales or rhonci. No respiratory distress or accessory muscle use Cardiovascular: regular rate, rhythm, no murmur, normal peripheral pulses Abdomen/GI: normal bowel sounds, soft, 5x6 cm infraumbilical hematoma, diffuse TTP but no guarding Extremities/Musculoskelatal: normal inspection, no calf tenderness, normal capillary refill, trace BLE edema Neurologic/Psych: alert, normal mood/affect, oriented x 3 Skin: normal color, warm/dry Results & Data Laboratory Results Short CBC 07/28/18 Range/Units 15:45 WBC 8.58 (4.8-10.8) K/uL Hgb 12.8 (12.0-16.0) g/dL Hct 37.7 (37-47) % Plt Count 200 (130-400) K/uL BMP 07/28/18 15:45 Sodium 139 Potassium 3.5 Chloride 106 Carbon Dioxide 29 BUN 18 Creatinine 0.87 Glucose 91 Calcium 9.1 Liver Function 07/28/18 Range/Units 15:45 Total Bilirubin 0.6 (0.2-1) mg/dl AST 39 H (15-37) U/L ALT 69 (12-78) U/L Alkaline Phosphatase 108 (45-117) U/L Albumin 3.7 (3.4-5.0) gm/dl Urine 07/28/18 Range/Units 15:45 Urine Color Dark Yellow Urine Appearance Clear (Clear) Urine pH 5.5 (4.5-7.5) Ur Specific [place] > 1.045 H (1.000-1.030) Urine Protein Negative (Negative) Urine Glucose (UA) Negative (Negative) Diagnostic Findings CT abd/pelvis: IMPRESSION: 1. A subcutaneous infraumbilical midline hematoma and a left rectus sheath hematoma as described above. 2. Interval appendectomy. No intra-abdominal abscess identified. 3. No bowel wall thickening or obstruction. Supervising Physician Co-Signing Physician Notes Care coordinated with Dolly DEGROOT. Agree with able note. Patient seen and examined. Please refer to her notes for full details. Vital signs reviewed. Physical exam: General exam: Alert and oriented. Not in acute distress. CVS: S1 and S2 heard, regular rate and rhythm, no murmurs. RS: Clear to auscultation, no wheezing or crackles. ABD: Soft, bowel sounds present, Bruise seen around periumbilical region GARMENT FOLDER: Nonfocal. EXT: No edema, no erythema. Labs: Reviewed. Assessment and plan: Infra umbilical hematoma recent lap appendectomy was bridged with Lovenox and started on Coumadin 3/4 for hx of PE. INR 3.4 today received 10mg of po coumadin in er follow pt/inr surgery consulted close monitor pain control. Asthma stable Other diagnosis and plan of care as per Dolly lyles MD. (1) Abdominal wall hematoma Encounter type: initial encounter Qualified Code(s): S30.1XXA - Contusion of abdominal wall, initial encounter
--- NOTE | 2018-07-28 19:58 | Emergency Department Note ---
Entered by Marilia Carreno acting as a scribe for Mike Eaton MD History of Present Illness General Chief complaint: Abdominal Pain Stated complaint: SEVERE ABDOMINAL PAIN LEFT SIDE Source: patient Limitations: no limitations History of Present Illness Provider complaint: abdominal pain Onset (ago): hour(s) Location: abdomen Radiation: back Maximum Pain Intensity: 8 Quality: + sharp Exacerbated By: + movement Associated symptoms: + loss of appetite, + nausea/vomiting (nausea no vomiting) and + other (+normal bowel movements); no fever/chills The patient is a 58 year old female who presents to the Emergency Room with complaints of abdominal pain that began earlier in the day prior to arrival. The patient describes the pain as sharp and states that movement exacerbates her pain. The patient states that the pain radiates to her back. The patient states that she has nausea and loss of appetite but denies any vomiting or fevers. The patient states that she has had normal bowel movements. The patient denies a history of kidney stones. She did recently have an appendectomy. She is on Coumadin for PE history. Home Medications Home Medications Medication Instructions Recorded Confirmed Type acyclovir 400 mg PO BID 07/18/18 07/28/18 History albuterol sulfate 2 puff INHALATION Q4H PRN 07/18/18 07/28/18 History dextroamphetamine-amphetamine 1.25 tabs PO BID 07/18/18 07/28/18 History [Adderall] fluticasone [Flonase Allergy 2 spray INTRANASAL BID 07/18/18 07/28/18 History Relief] lorazepam 0.5 mg PO DAILY PRN 07/18/18 07/28/18 History pantoprazole 40 mg PO QPM 07/18/18 07/28/18 History sucralfate [Carafate] 1 g PO AMHS 07/18/18 07/28/18 History warfarin [Coumadin] 5 mg PO 6XWK 07/18/18 07/28/18 History warfarin [Coumadin] 7.5 mg PO WK 07/18/18 07/28/18 History duloxetine [Cymbalta] 30 mg PO DAILY 07/28/18 07/28/18 History levothyroxine 88 mcg PO DAILY 07/28/18 07/28/18 History Allergies Allergy/AdvReac Type Severity Reaction Status Date / Time Bactrim Allergy Intermediate break out Verified 12/15/17 05:35 in hives sulfamethoxazole Allergy Intermediate RASH Verified 07/28/18 16:19 trimethoprim Allergy Intermediate break out Verified 07/28/18 16:19 in hives Sulfa (Sulfonamide Allergy Mild RASH Verified 07/28/18 16:19 Antibiotics) phytonadione (vitamin K1) Allergy Difficulty Verified 07/28/18 16:19 Breathing amoxicillin AdvReac Intermediate SEVERE Verified 07/28/18 16:19 NAUSEA AND VOMITING tetracycline AdvReac Intermediate NAUSEA/VOMI Verified 07/28/18 16:19 TING clavulanic acid AdvReac Unknown SEVERE Verified 07/28/18 16:19 NAUSEA AND VOMITING codeine AdvReac Unknown VOMIT-WAS Verified 07/28/18 16:19 ON EMPTY STOMACH Past Med/Surg History Medical History Abdominal wall hematoma (Acute) Acid reflux Anxiety Arthritis Asthma Deep vein thrombosis Herpes Hypothyroid Pulmonary embolism Surgical History H/O sinus surgery History of ankle surgery Hx of breast reduction, elective Hx of tonsillectomy Social History Preferred Language: [place] Beliefs That Will Affect Care: None Current Living Situation: Spouse and Parent Feels Safe at Home: Yes Smoking Status: Never smoker Hx Alcohol Use: Yes Hx Substance Use: No Review of Systems See HPI for pertinent positives & negatives. and A total of 10 systems reviewed and were otherwise negative Physical Exam Vital Signs Vital Signs - 24 hr 07/28/18 15:23 07/28/18 18:16 Temperature 36.9 C Temperature Source Oral Sepsis Recent Fever Within 48 Hours No Sepsis New/Unexplained Change in Mental Status No Sepsis Action Taken by Nursing No Action Required Pulse Rate 74 Pulse Rate [Finger] 61 Pulse Rhythm [Finger] Regular Pulse Strength [Finger] Normal Respiratory Rate 18 16 Respiratory Effort / Characteristics Non-Labored Spontaneous Non-Labored Respiratory Depth Normal Normal Respiratory Pattern Regular Regular Blood Pressure 171/108 H Blood Pressure [Right Arm] 146/82 H Blood Pressure Mean 129 Blood Pressure Mean [Right Arm] 103 Blood Pressure Position [Right Arm] Lying Pulse Oximetry 96 98 Oxygen Delivery Method Room Air Room Air Constitutional: Vital signs reviewed. Eyes: Pupils are equal round reactive to light. Conjunctiva are noninjected. ENT: Pharynx is clear without erythema or exudate. Mucous membranes are moist. Neck supple without meningeal signs. Respiratory: Clear to auscultation bilaterally. Breath sounds are equal bilaterally. Cardiovascular: Regular rate and rhythm. No rubs or gallops. GI:Ecchymosis and induration to lower abdomen, no drainage from incision sites, tenderness and mild increase warmth. Bowel sounds are present. Musculoskeletal: No peripheral edema. No lower extremity tenderness. Integumentary: No cyanosis. Neurological: The patient is awake and alert. No focal deficits. Psychiatric: Normal affect. Course 1530: Past medical records reviewed and the patient was evaluated in room A2, and a complete history and physical examination were performed. 1630: I checked on and updated the patient on her resultls. 1748: I checked on the patient and she states that she is still in pain. 1753: I discussed the patient's case with Dr. Vieira who recommends giving the patient 10 mg of Vitamin K. 1800: I discussed the plan with the patient who states that she gets flushed and light-headed when she receives Vitamin K through an IV. I discussed this with Dr. Vieira who stated to give the Vitamin K PO instead. 1822: I [facility] the [facility] will evaluate the patient for further hospitalization. Consultations Consultation #1: Dr. Vieira Time: 17:53 Consultation #2: Dr. Vieira Time: 18:00 [facility] Time: 18:22 Administered Medications Ioversol (Optiray 320 100ml) 94 ml IV ONCE PRN PRN Reason: Interaction Checking Stop: 08/01/18 17:05 Last Admin: 07/28/18 17:07 Dose: 94 ml Documented by: [id number] Discontinued Medications Lorazepam (Ativan) Confirm Administered Dose 2 mg .ROUTE .STK-MED ONE Stop: 07/28/18 19:33 Last Admin: 07/28/18 19:35 Dose: 0.5 mg Documented by: [id number] Morphine Sulfate (Morphine Sulfate) 4 mg IV NOW STA Stop: 07/28/18 15:34 Last Admin: 07/28/18 15:58 Dose: 4 mg Documented by: [id number] Morphine Sulfate (Morphine Sulfate) 4 mg IV NOW STA Stop: 07/28/18 17:50 Last Admin: 07/28/18 18:18 Dose: 4 mg Documented by: [id number] Ondansetron HCl (Zofran) 4 mg IV NOW STA Stop: 07/28/18 15:34 Last Admin: 07/28/18 15:58 Dose: 4 mg Documented by: [id number] Phytonadione (Mephyton) 10 mg PO NOW STA Stop: 07/28/18 18:03 Last Admin: 07/28/18 18:18 Dose: 10 mg Documented by: [id number] Medical Decision Making Differential Diagnosis Differentials include abscess, post-operational pain, hematoma, and diverticulitis. Medical Records Attestation: I reviewed the patient's medical records. Home Medications Current Medication List: was personally reviewed by me Laboratory Data Attestation: I reviewed the patient's lab results. Result diagrams: 07/28/18 15:45 07/28/18 15:45 Lab Results 07/28/18 07/28/18 07/28/18 Range/Units 15:45 15:45 15:45 WBC 8.58 (4.8-10.8) K/uL RBC 3.80 L (4.2-5.4) M/uL Hgb 12.8 (12.0-16.0) g/dL Hct 37.7 (37-47) % MCV 99.2 (80-100) fL MCH 33.7 (25-34) pg MCHC 34.0 (32-36) g/dL RDW Std Deviation 48.5 H (36.4-46.3) fL RDW Coeff of Jesus 13.4 (11.5-14.5) % Plt Count 200 (130-400) K/uL MPV 10.9 H (7.4-10.4) fL Immature Gran % (Auto) 0.2 % Neut % (Auto) 65.4 % Lymph % (Auto) 26.0 % [place] % (Auto) 6.2 % Eos % (Auto) 1.9 % Baso % (Auto) 0.3 % Immature Gran # (Auto) 0.02 (0.00-0.02) K/uL Neut # (Auto) 5.61 (1.4-6.5) K/uL Lymph # (Auto) 2.23 (1.2-3.4) K/uL [place] # (Auto) 0.53 (0.11-0.59) K/uL Eos # (Auto) 0.16 (0-0.5) K/uL Baso # (Auto) 0.03 (0-0.2) K/uL PT 34.7 H (9.0-12.0) Seconds INR 3.7 H (0.9-1.1) APTT 41.5 H (21.0-31.0) Seconds PTT Ratio 1.5 Sodium 139 (136-145) mmol/L Potassium 3.5 (3.5-5.1) mmol/L Chloride 106 (98-107) mmol/L Carbon Dioxide 29 (21-32) mmol/L Anion Gap 4.0 (3-11) BUN 18 (7-18) mg/dl Creatinine 0.87 (0.6-1.2) mg/dl Est Cr Clr Drug Dosing 93.2 ml/min Est GFR ( Amer) 85.7 Est GFR (Non-Af Amer) 74.0 BUN/Creatinine Ratio 20.5 H (10-20) Glucose 91 (70-99) mg/dl Calcium 9.1 (8.5-10.1) mg/dl Total Bilirubin 0.6 (0.2-1) mg/dl AST 39 H (15-37) U/L ALT 69 (12-78) U/L Alkaline Phosphatase 108 (45-117) U/L Total Protein 7.6 (6.4-8.2) gm/dl Albumin 3.7 (3.4-5.0) gm/dl Globulin 3.9 (2.5-4.0) gm/dl Albumin/Globulin Ratio 1.0 (0.9-2) Lipase 104 (73-393) U/L Urine Color Urine Appearance (Clear) Urine pH (4.5-7.5) Ur Specific Bell (1.000-1.030) Urine Protein (Negative) Urine Glucose (UA) (Negative) Urine Ketones (Negative) Urine Blood (Negative) Urine Nitrite (Negative) Urine Bilirubin (Negative) Urine Urobilinogen (Negative) Ur Leukocyte Esterase (Negative) 07/28/18 Range/Units 15:45 WBC (4.8-10.8) K/uL RBC (4.2-5.4) M/uL Hgb (12.0-16.0) g/dL Hct (37-47) % MCV (80-100) fL MCH (25-34) pg MCHC (32-36) g/dL RDW Std Deviation (36.4-46.3) fL RDW Coeff of Jesus (11.5-14.5) % Plt Count (130-400) K/uL MPV (7.4-10.4) fL Immature Gran % (Auto) % Neut % (Auto) % Lymph % (Auto) % [place] % (Auto) % Eos % (Auto) % Baso % (Auto) % Immature Gran # (Auto) (0.00-0.02) K/uL Neut # (Auto) (1.4-6.5) K/uL Lymph # (Auto) (1.2-3.4) K/uL [place] # (Auto) (0.11-0.59) K/uL Eos # (Auto) (0-0.5) K/uL Baso # (Auto) (0-0.2) K/uL PT (9.0-12.0) Seconds INR (0.9-1.1) APTT (21.0-31.0) Seconds PTT Ratio Sodium (136-145) mmol/L Potassium (3.5-5.1) mmol/L Chloride (98-107) mmol/L Carbon Dioxide (21-32) mmol/L Anion Gap (3-11) BUN (7-18) mg/dl Creatinine (0.6-1.2) mg/dl Est Cr Clr Drug Dosing ml/min Est GFR ( Amer) Est GFR (Non-Af Amer) BUN/Creatinine Ratio (10-20) Glucose (70-99) mg/dl Calcium (8.5-10.1) mg/dl Total Bilirubin (0.2-1) mg/dl AST (15-37) U/L ALT (12-78) U/L Alkaline Phosphatase (45-117) U/L Total Protein (6.4-8.2) gm/dl Albumin (3.4-5.0) gm/dl Globulin (2.5-4.0) gm/dl Albumin/Globulin Ratio (0.9-2) Lipase (73-393) U/L Urine Color Dark Yellow Urine Appearance Clear (Clear) Urine pH 5.5 (4.5-7.5) Ur Specific Bell > 1.045 H (1.000-1.030) Urine Protein Negative (Negative) Urine Glucose (UA) Negative (Negative) Urine Ketones Negative (Negative) Urine Blood Negative (Negative) Urine Nitrite Negative (Negative) Urine Bilirubin Negative (Negative) Urine Urobilinogen Negative (Negative) Ur Leukocyte Esterase Negative (Negative) Imaging Data Radiologist's Impression: Radiology results as stated below per my review and the radiologist's interpretation: ABDOMEN AND PELVIS CT WITH IV CONTRAST CT DOSE: 1495.67 mGy.cm HISTORY: lower abd pain s/p appe eval for abscess/hematoma TECHNIQUE: Multiaxial CT images of the abdomen and pelvis were performed following the use of intravenous contrast. A dose lowering technique was utilized adhering to the principles of ALARA. COMPARISON STUDY: Abdomen and pelvis CT 07/19/2018. FINDINGS: The lung bases are clear. No pneumoperitoneum. No pneumatosis. The liver, gallbladder, pancreas, spleen, adrenal glands, and kidneys are unremarkable. No hydronephrosis. No retroperitoneal lymphadenopathy. The bladder, uterus, bilateral adnexa are unremarkable. No pelvic free fluid. No intra-abdominal abscess identified. Status post appendectomy. A few colonic diverticula. No evidence for diverticulitis. No bowel wall thickening or obstruction. There is a left rectus sheath hematoma measuring 12 x 5 x 3 cm. There is also a subcutaneous infraumbilical midline hematoma measuring 6.2 x 6.0 cm. Mild skin thickening and subcutaneous fat and within the lower abdominal wall. IMPRESSION: 1. A subcutaneous infraumbilical midline hematoma and a left rectus sheath hematoma as described above. 2. Interval appendectomy. No intra-abdominal abscess identified. 3. No bowel wall thickening or obstruction. Electronically signed by: Jose Miguel Aguilar M.D. 07/28/2018 5:25 PM Blood Pressure Blood Pressure Findings: Elevated blood pressure Blood Pressure Disposition: elevated BP felt to be situational MDM Narrative I did perform a limited focused review of portions of the patient's old chart on the electronic medical record. The patient had appendicitis and an appendectomy in June. I did evaluate the patient as noted above. The patient is presenting with lower abdominal pain. She has a large area of induration and ecchymosis to the abdomen. IV access was established. The patient was placed on a continuous monitor worker. I did treat her with IV morphine and Zofran. I did order and personally review the patient's urine analysis as described above. There is no evidence of infection. I did order and review the patient's blood work as noted in the electronic medical record. Her white blood cell count is not elevated. She is not anemic. She does have a INR 3.7. I did order a CT of the abdomen and pelvis. I did review the images myself as well as the radiology report as described above. The CAT scan does not show any intra-abdominal pathology. She does have a subcutaneous infraumbilical hematoma as well as a left rectus sheath hematoma. I did reassess the patient. She states she is still in pain and she was given additional morphine IV. I did discuss the test results with her. I did discuss the case with Dr. Cardenas who recommended IV vitamin K but the patient is allergic to the IV formulation and so she was given oral vitamin K 10 mg. I did discuss case with general surgery who will evaluate the patient in the emergency department. He recommended that the patient be admitted to the hospitalist service. I did discuss case with the hospitalist and case coordinator. Impression & Plan Abdominal wall hematoma, Supratherapeutic INR, Hematoma of rectus sheath Discharge Plan Visit Data Chief Complaint: Abdominal Pain Stated Complaint: SEVERE ABDOMINAL PAIN LEFT SIDE ED Provider: Mike Eaton Discharge Problem: Abdominal wall hematoma, Supratherapeutic INR, Hematoma of rectus sheath Patient Disposition: Being Evaluated by Hospitalist Forms Stand Alone Forms: Call Back Authorization, [facility] Prescriptions Prescriptions: No Action sucralfate [Carafate] 1 gram Tablet 1 g PO AMHS RF: 0 acyclovir 400 mg Tablet 400 mg PO BID RF: 0 lorazepam 0.5 mg Tablet 0.5 mg PO DAILY PRN (Reason: Anxiety) RF: 0 pantoprazole 40 mg Tablet,Delayed Release (Dr/Ec) 40 mg PO QPM RF: 0 dextroamphetamine-amphetamine [Adderall] 20 mg Tablet 1.25 tabs PO BID RF: 0 warfarin [Coumadin] 5 mg Tablet 5 mg PO 6XWK RF: 0 warfarin [Coumadin] 5 mg Tablet 7.5 mg PO WK RF: 0 albuterol sulfate 90 mcg/actuation Hfa Aerosol Inhaler 2 puff INHALATION Q4H PRN (Reason: Shortness Of Breath Or Wheezing) RF: 0 fluticasone [Flonase Allergy Relief] 50 mcg/actuation Frost,Suspension 2 spray INTRANASAL BID RF: 0 levothyroxine 88 mcg Tablet 88 mcg PO DAILY RF: 0 duloxetine [Cymbalta] 30 mg Capsule,Delayed Release(Dr/Ec) 30 mg PO DAILY RF: 0 Referrals Referrals: Eligio Myles D.O. [Primary Care Provider] - The scribe's documentation has been prepared under my direction and personally reviewed by me in its entirety. I confirm that the note above accurately reflects all work, treatment, procedures, and medical decision making performed by me.
[2018-07-28] MEDS ORDERED: ALBUTEROL HFA 8 GM INHALER INH PRN (21:30)
[2018-07-28] MEDS ORDERED: SODIUM CHLORIDE 0.9% 1000ML 1,000 ML IV SCH (21:30)
[2018-07-28] MEDS ORDERED: ONDANSETRON INJ 2 MG/ML 2 ML VIAL IV PRN (21:30)
[2018-07-28 22:22] LABS: Hematocrit (blood only) 33.6 % (37-47); Hemoglobin 11.6 g/dL (12.0-16.0)
[2018-07-28] MEDS: MoRPHine SULFATE 4 MG/ML 1 ML CARP\\VIAL IV PRN (23:42)
[2018-07-29] MEDS: MoRPHine SULFATE 4 MG/ML 1 ML CARP\\VIAL IV PRN ×4 (05:27→19:56)
[2018-07-29 05:53] LABS: Hematocrit (blood only) 32.2 % (37-47); Hemoglobin 10.9 g/dL (12.0-16.0); Mean Corpuscular Hgb Conc 33.9 g/dL (32-36); Mean Corpuscular Volume 97.9 fL (80-100); Mean Platelet Volume 10.4 fL (7.4-10.4); Platelet Count 166 K/uL (130-400); RDW Coefficient of Variation 13.4 % (11.5-14.5); RDW Standard Deviation 48.4 fL (36.4-46.3); Red Blood Count 3.29 M/uL (4.2-5.4); White Blood Count 7.45 K/uL (4.8-10.8)
[2018-07-29 06:26] LABS: BUN Creatinine Ratio 14.8 (10-20); Calcium 8.4 mg/dl (8.5-10.1); Creatinine Clr Calc Pharmacy 98.4 ml/min; Est GFR (African American) 92.1; Est GFR (Non-African American) 79.4; INR 3.4 (0.9-1.1); Potassium 3.6 mmol/L (3.5-5.1); Prothrombin Time 32.3 Seconds (9.0-12.0)
[2018-07-29 06:34] LABS: Albumin Globulin Ratio 0.9 (0.9-2); Bilirubin,Total 0.7 mg/dl (0.2-1); Globulin 3.3 gm/dl (2.5-4.0); Total Protein 6.3 gm/dl (6.4-8.2)
--- NOTE | 2018-07-29 11:29 | Hospitalist Progress Note ---
Date of Service July 29, 2018 Assessment & Plan (1) Abdominal wall hematoma: Infraumbilical region Left rectus sheath hematoma of 12 x 5 x 3 cm and 6.2 x 6 cm hematoma involving infraumbilical area Tender on palpation Has surrounding bruising Adequate pain control PT and OT evaluation tomorrow Likely discharge tomorrow if hemoglobin remains stable Present on Admission?: Yes (2) Supratherapeutic INR: -Underwent laparoscopic appendectomy 9 days ago and received postop bridging with Lovenox before anticoagulation clinic resumed Coumadin on 07/23 -Developed abdominal wall hematoma with complaints of pain since last -CT abd/pelvis with: * 1. A subcutaneous infraumbilical midline hematoma and a left rectus sheath hematoma as described above. * 2. Interval appendectomy. No intra-abdominal abscess identified. * 3. No bowel wall thickening or obstruction. -INR supratherapeutic at 3.7. Given 10mg PO Vit K in ED -Surgery consulted, recommend holding coumadin for 1-2 days. Will continue to follow -Hgb stable at 12.8 on admission and then today it is 10.9 -Pain control, anti-emetics -Recheck INR in AM -INR is 3.4 this morning -Monitor CBC and INR (3) History of pulmonary embolism: H/o multiple DVTs/PE is in past, most recent PE was 4 years ago -Hold coumadin for now -Recheck INR in AM -2.4 (4) Anxiety: Given 0.5 IV Ativan in ED. Continue home ativan 0.5mg PO BID PRN (5) Asthma: Stable. Continue inhalers PRN Auscultate bilaterally (6) Acid reflux: Continue PPI, Carafate (7) Hypothyroid: Continue levothyroxine DVT Ppx: Holding coumadin for supratherapeutic INR Code status: FULL PCP: Shar Dispo: Admitted to [facility]. Plan to return home once medically stable. Patient seen in collaboration with Dr. Roger. Please see addendum. Subjective She is a 58-year-old Obese female with a PMH of asthma, history of multiple PEs on Coumadin, recent appendectomy and other medical problems listed below who presents with worsening abdominal pain and bruising x 2 days. Underwent laparoscopic appendectomy 10 days ago and received postop bridging with Lovenox before anticoagulation clinic resumed Coumadin on 07/29 Patient was seen and examined in medical floor She has been complaining of ongoing pain and swelling involving the abdominal wall below the umbilicus Noted to have hematoma in the rectus chest on CAT scan Ongoing pain Denies any other symptoms Physical Exam Vital Signs (Past 24 Hours): Last Vital Signs Temp 37.2 C 07/29/18 06:53 Pulse 85 07/29/18 07:13 Resp 18 07/29/18 06:53 BP 143/86 H 07/29/18 06:53 Pulse Ox 93 07/29/18 06:53 Physical Exam: Moderate distress at rest Constitutional: WD/WN, vitals as above well developed and well nourished Eyes: PERRL, conjunctivae normal, anicteric sclerae ENMT: external ear and nose normal, oropharynx normal Neck: trachea midline, no thyromegaly Respiratory: normal respiratory effort, lungs clear to auscultation normal respiratory effort Cardiovascular: RRR, no murmur, no edema Rate/Rhythm: regular rate Heart Sounds: normal S1 and normal S2 Gastrointestinal (Abdomen): Inspection/Auscultation: normal bowel sounds and + abdominal wall ecchymosis (Infraumbilical region) Percussion/Palpation: + abdomen tender (Swelling and tenderness involving the infraumbilical region with adjoining bruises) and abdomen soft Neurologic: awake Psychiatric: Orientation: alert and oriented x 3 Results & Data Laboratory Results Short CBC 07/28/18 07/28/18 07/29/18 Range/Units 15:45 22:12 05:31 WBC 8.58 7.45 (4.8-10.8) K/uL Hgb 12.8 11.6 L 10.9 L (12.0-16.0) g/dL Hct 37.7 33.6 L 32.2 L (37-47) % Plt Count 200 166 (130-400) K/uL BMP 07/28/18 07/29/18 15:45 05:31 Sodium 139 138 Potassium 3.5 3.6 Chloride 106 107 Carbon Dioxide 29 27 BUN 18 12 Creatinine 0.87 0.82 Glucose 91 97 Calcium 9.1 8.4 L Liver Function 07/28/18 07/29/18 Range/Units 15:45 05:31 Total Bilirubin 0.6 0.7 (0.2-1) mg/dl AST 39 H 24 (15-37) U/L ALT 69 46 (12-78) U/L Alkaline Phosphatase 108 91 (45-117) U/L Albumin 3.7 3.0 L (3.4-5.0) gm/dl Urine 07/28/18 Range/Units 15:45 Urine Color Dark Yellow Urine Appearance Clear (Clear) Urine pH 5.5 (4.5-7.5) Ur Specific White > 1.045 H (1.000-1.030) Urine Protein Negative (Negative) Urine Glucose (UA) Negative (Negative) Medications Administered Current Inpatient Medications Albuterol (Ventolin Hfa) 2 puffs INH Q4H PRN PRN Reason: Shortness Of Breath Or Wheezing Stop: 08/27/18 21:29 Acetaminophen (Ofirmev) 1,000 mg in 100 mls @ 400 mls/hr IV Q8H PRN PRN Reason: Pain Stop: 08/27/18 19:27 Morphine Sulfate (Morphine Sulfate) 3 mg IV Q3H PRN PRN Reason: Pain Stop: 08/11/18 22:58 Last Admin: 07/29/18 09:05 Dose: 3 mg Documented by: Ondansetron HCl (Zofran) 4 mg IV Q6H PRN PRN Reason: Nausea Stop: 08/27/18 21:29 Polyethylene Glycol (Miralax Powder Packet) 17 gm PO DAILY PRN PRN Reason: Constipation Stop: 08/27/18 21:29 (1) Abdominal wall hematoma Encounter type: initial encounter Qualified Code(s): S30.1XXA - Contusion of abdominal wall, initial encounter
[2018-07-30] MEDS: MoRPHine SULFATE 4 MG/ML 1 ML CARP\\VIAL IV PRN ×4 (02:21→21:09)
[2018-07-30] MEDS ORDERED: LORazepam 0.5 MG TAB PO PRN (04:28)
[2018-07-30] MEDS: LEVOTHYROXINE SODIUM 88 MCG TABLET PO SCH (06:03)
[2018-07-30] MEDS: AMPHETAMINE ASP/SULF/DEXTRAMPH 10 MG TAB PO SCH ×2 (06:35→13:03)
[2018-07-30 07:25] LABS: Hematocrit (blood only) 29.7 % (37-47); Hemoglobin 10.2 g/dL (12.0-16.0); Mean Corpuscular Hgb Conc 34.3 g/dL (32-36); Platelet Count 161 K/uL (130-400); RDW Coefficient of Variation 13.1 % (11.5-14.5); RDW Standard Deviation 47.6 fL (36.4-46.3); White Blood Count 7.79 K/uL (4.8-10.8)
[2018-07-30 07:39] LABS: INR 2.2 (0.9-1.1)
[2018-07-30 07:59] LABS: Albumin Level 2.7 gm/dl (3.4-5.0); Calcium 8.3 mg/dl (8.5-10.1); Creatinine Clr Calc Pharmacy 87.3 ml/min; Est GFR (African American) 79.1; Est GFR (Non-African American) 68.2; Potassium 3.7 mmol/L (3.5-5.1)
[2018-07-30 08:01] LABS: Albumin Globulin Ratio 0.8 (0.9-2); Bilirubin,Total 0.8 mg/dl (0.2-1); Globulin 3.5 gm/dl (2.5-4.0); Total Protein 6.2 gm/dl (6.4-8.2)
[2018-07-30] MEDS: SUCRALFATE 1 GM TAB PO SCH ×2 (09:28→21:00)
[2018-07-30] MEDS: ATORVASTATIN 20 MG TAB PO SCH (09:29)
[2018-07-30] MEDS: DULOXETINE HCL 30 MG CAP PO SCH (09:29)
[2018-07-30] MEDS: ACYCLOVIR 400 MG TAB PO SCH ×2 (09:29→21:01)
[2018-07-30] MEDS: FLUTICASONE PROPIONATE NA SPR 16 GM BTL SCH ×2 (09:41→21:00)
[2018-07-30] MEDS: POLYETHYLENE (MIRALAX) 17 GM PACK PO PRN (09:42)
--- NOTE | 2018-07-30 11:40 | Hospitalist Progress Note ---
Date of Service July 30, 2018 Assessment & Plan (1) Abdominal wall hematoma: Infraumbilical region Left rectus sheath hematoma of 12 x 5 x 3 cm and 6.2 x 6 cm hematoma involving infraumbilical area Tender on palpation Has surrounding bruising Adequate pain control PT and OT evaluation tomorrow Hemoglobin has dropped to 10.2 from 12.2 on admission Hematoma has not increased and pain remains stable We will repeat CBC tomorrow and if there is no drop in hemoglobin we will send her home (2) Supratherapeutic INR: -Underwent laparoscopic appendectomy 9 days ago and received postop bridging with Lovenox before anticoagulation clinic resumed Coumadin on 07/23 -Developed abdominal wall hematoma with complaints of pain since last -CT abd/pelvis with: * 1. A subcutaneous infraumbilical midline hematoma and a left rectus sheath hematoma as described above. * 2. Interval appendectomy. No intra-abdominal abscess identified. * 3. No bowel wall thickening or obstruction. -INR supratherapeutic at 3.7. Given 10mg PO Vit K in ED -Surgery consulted, recommend holding coumadin for 1-2 days. 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 Continue home ativan 0.5mg PO BID PRN (5) Asthma: Stable. Continue inhalers PRN Auscultate bilaterally (6) Acid reflux: Continue PPI, Carafate (7) Hypothyroid: Continue levothyroxine DVT Ppx: Holding coumadin for supratherapeutic INR Code status: FULL PCP: Shar Dispo: Admitted to [facility]. Plan to return home once medically stable. PT and OT evaluation Likely discharge tomorrow if hemoglobin remains stable Subjective She is a 58-year-old Obese female with a PMH of asthma, history of multiple PEs on Coumadin, recent appendectomy and other medical problems listed below who presents with worsening abdominal pain and bruising x 2 days. Underwent laparoscopic appendectomy 10 days ago and received postop bridging with Lovenox before anticoagulation clinic resumed Coumadin on 07/23. 07/29 Patient was seen and examined in medical floor She has been complaining of ongoing pain and swelling involving the abdominal wall below the umbilicus Noted to have hematoma in the rectus chest on CAT scan Ongoing pain Denies any other symptoms 07/30 History complains to have abdominal pain The pain has been increasing Denies any other symptoms of nausea and/or vomiting Has not been ambulating well Physical Exam Vital Signs (Past 24 Hours): Last Vital Signs Temp 36.8 C 07/30/18 11:18 Pulse 68 07/30/18 11:18 Resp 16 07/30/18 11:18 BP 124/81 07/30/18 11:18 Pulse Ox 92 07/30/18 11:18 Physical Exam: Moderate pain at rest Constitutional: WD/WN, vitals as above well developed and well nourished Eyes: PERRL, conjunctivae normal, anicteric sclerae ENMT: external ear and nose normal, oropharynx normal Neck: trachea midline, no thyromegaly Respiratory: normal respiratory effort, lungs clear to auscultation normal respiratory effort Cardiovascular: RRR, no murmur, no edema Rate/Rhythm: regular rate Heart Sounds: normal S1 and normal S2 Gastrointestinal (Abdomen): Inspection/Auscultation: normal bowel sounds and + abdominal wall ecchymosis (Infraumbilical region) Percussion/Palpation: + abdomen tender (Swelling and tenderness involving the infraumbilical region with adjoining bruises), abdomen soft and + abdominal mass (Secondary to hematoma involving the rectus sheath and infraumbilical area) Neurologic: awake Psychiatric: Orientation: alert and oriented x 3 Results & Data Laboratory Results Short CBC 07/30/18 Range/Units 06:41 WBC 7.79 (4.8-10.8) K/uL Hgb 10.2 L (12.0-16.0) g/dL Hct 29.7 L (37-47) % Plt Count 161 (130-400) K/uL BMP 07/30/18 06:41 Sodium 138 Potassium 3.7 Chloride 105 Carbon Dioxide 29 BUN 15 Creatinine 0.93 Glucose 102 H Calcium 8.3 L Liver Function 07/30/18 Range/Units 06:41 Total Bilirubin 0.8 (0.2-1) mg/dl AST 19 (15-37) U/L ALT 34 (12-78) U/L Alkaline Phosphatase 80 (45-117) U/L Albumin 2.7 L (3.4-5.0) gm/dl Medications Administered Current Inpatient Medications Acyclovir (Zovirax) 400 mg PO BID [facility] Stop: 08/29/18 08:59 Last Admin: 07/30/18 09:29 Dose: 400 mg Documented by: Albuterol (Ventolin Hfa) 2 puffs INH Q4H PRN PRN Reason: Shortness Of Breath Or Wheezing Stop: 08/27/18 21:29 Amphetamine/Dextroamphetamine (Adderall) 25 mg PO [id number] [facility] Stop: 08/13/18 06:59 Last Admin: 07/30/18 06:35 Dose: 25 mg Documented by: Atorvastatin Calcium (Lipitor) 20 mg PO DAILY [facility] Stop: 08/29/18 08:59 Last Admin: 07/30/18 09:29 Dose: 20 mg Documented by: Duloxetine HCl (Cymbalta) 30 mg PO DAILY [facility] Stop: 08/29/18 08:59 Last Admin: 07/30/18 09:29 Dose: 30 mg Documented by: Fluticasone Propionate (Flonase) 2 sprays NA BID [facility] Stop: 08/29/18 08:59 Last Admin: 07/30/18 09:41 Dose: 2 sprays Documented by: Acetaminophen (Ofirmev) 1,000 mg in 100 mls @ 400 mls/hr IV Q8H PRN PRN Reason: Pain Stop: 08/27/18 19:27 Levothyroxine Sodium (Synthroid) 88 mcg PO DAILYBB [facility] Stop: 08/29/18 06:29 Last Admin: 07/30/18 06:03 Dose: 88 mcg Documented by: Lorazepam (Ativan) 0.5 mg PO DAILY PRN PRN Reason: Anxiety Stop: 08/29/18 04:27 Morphine Sulfate (Morphine Sulfate) 3 mg IV Q3H PRN PRN Reason: Pain Stop: 08/11/18 22:58 Last Admin: 07/30/18 09:22 Dose: 3 mg Documented by: Ondansetron HCl (Zofran) 4 mg IV Q6H PRN PRN Reason: Nausea Stop: 08/27/18 21:29 Pantoprazole Sodium (Protonix) 40 mg PO QPM [facility] Stop: 08/29/18 20:59 Polyethylene Glycol (Miralax Powder Packet) 17 gm PO DAILY PRN PRN Reason: Constipation Stop: 08/27/18 21:29 Last Admin: 07/30/18 09:42 Dose: 17 gm Documented by: Sucralfate (Carafate Tab) 1 gm PO AMHS MAUDE Stop: 08/29/18 08:59 Last Admin: 07/30/18 09:28 Dose: 1 gm Documented by: (1) Abdominal wall hematoma Encounter type: initial encounter Qualified Code(s): S30.1XXA - Contusion of abdominal wall, initial encounter
--- NOTE | 2018-07-30 16:02 | Surgery Progress Note ---
Date of Service July 30, 2018 pt is stable, H/H stable, INR 2.2 today, the hematoma is not inceased. Assessment & Plan (1) Abdominal wall hematoma: stable, continue conservative treatment, hold coumadin today, repeat INR tomorrow, will F/u Subjective Constitutional: as per Subjective / HPI Ear, Nose, Mouth, Throat: as per Subjective / HPI Respiratory: as per Subjective / HPI Cardiovascular: as per Subjective / HPI Gastrointestinal: as per Subjective / HPI Genitourinary (Female): + as per Subjective / HPI Neurologic: as per Subjective / HPI Psychiatric: as per Subjective / HPI Endocrine: as per Subjective / HPI Hematologic / Lymphatic: as per Subjective / HPI Physical Exam Vital Signs (Past 24 Hours): Last Vital Signs Temp 37.2 C 07/30/18 15:43 Pulse 95 H 07/30/18 15:43 Resp 18 07/30/18 15:43 BP 137/89 07/30/18 15:43 Pulse Ox 91 07/30/18 15:43 Constitutional: WD/WN, vitals as above well developed and well nourished Neck: trachea midline, no thyromegaly Respiratory: normal respiratory effort, lungs clear to auscultation Cardiovascular: RRR, no murmur, no edema Gastrointestinal (Abdomen): Percussion/Palpation: + abdomen tender and abdomen soft one lump just below umbilical area, size about 5x6cm, no redness, some tenderness, Neurologic: awake Psychiatric: Orientation: alert and oriented x 3 Results & Data Laboratory Results Abnormal lab results 07/30/18 07/30/18 07/30/18 Range/Units 06:41 06:41 06:41 RBC 3.00 L (4.2-5.4) M/uL Hgb 10.2 L (12.0-16.0) g/dL Hct 29.7 L (37-47) % RDW Std Deviation 47.6 H (36.4-46.3) fL MPV 11.0 H (7.4-10.4) fL PT 21.0 H (9.0-12.0) Seconds INR 2.2 H (0.9-1.1) Glucose 102 H (70-99) mg/dl Calcium 8.3 L (8.5-10.1) mg/dl Total Protein 6.2 L (6.4-8.2) gm/dl Albumin 2.7 L (3.4-5.0) gm/dl Albumin/Globulin Ratio 0.8 L (0.9-2) (1) Abdominal wall hematoma Encounter type: initial encounter Qualified Code(s): S30.1XXA - Contusion of abdominal wall, initial encounter
[2018-07-30] MEDS: PANTOprazole 40 MG TAB PO SCH (21:01)
[2018-07-31] MEDS: MoRPHine SULFATE 4 MG/ML 1 ML CARP\\VIAL IV PRN ×4 (00:55→19:55)
[2018-07-31] MEDS: LEVOTHYROXINE SODIUM 88 MCG TABLET PO SCH (05:28)
[2018-07-31 07:42] LABS: Basophils # (auto) 0.02 K/uL (0-0.2); Basophils % (auto) 0.3 %; Eosinophils # (auto) 0.16 K/uL (0-0.5); Eosinophils % (auto) 2.3 %; Hematocrit (blood only) 28.5 % (37-47); Hemoglobin 9.7 g/dL (12.0-16.0); Immature Granulocytes # (auto) 0.01 K/uL (0.00-0.02); Immature Granulocytes % (auto) 0.1 %; Lymphocytes # (auto) 2.05 K/uL (1.2-3.4); Lymphocytes % (auto) 28.9 %; Mean Corpuscular Volume 98.3 fL (80-100); Mean Platelet Volume 10.6 fL (7.4-10.4); Monocytes % (auto) 8.5 %; Neutrophils # (auto) 4.25 K/uL (1.4-6.5); Neutrophils % (auto) 59.9 %; Platelet Count 168 K/uL (130-400); RDW Standard Deviation 46.6 fL (36.4-46.3); White Blood Count 7.09 K/uL (4.8-10.8)
[2018-07-31] MEDS: ACYCLOVIR 400 MG TAB PO SCH ×2 (07:47→20:02)
[2018-07-31] MEDS: DULOXETINE HCL 30 MG CAP PO SCH (07:47)
[2018-07-31] MEDS: ATORVASTATIN 20 MG TAB PO SCH (07:47)
[2018-07-31] MEDS: SUCRALFATE 1 GM TAB PO SCH ×2 (07:48→20:01)
[2018-07-31] MEDS: FLUTICASONE PROPIONATE NA SPR 16 GM BTL SCH ×2 (07:48→20:01)
[2018-07-31 07:51] LABS: INR 1.4 (0.9-1.1); Prothrombin Time 13.6 Seconds (9.0-12.0)
[2018-07-31] MEDS: AMPHETAMINE ASP/SULF/DEXTRAMPH 10 MG TAB PO SCH ×2 (07:52→13:05)
--- NOTE | 2018-07-31 13:57 | Surgery Progress Note ---
Date of Service July 31, 2018 Assessment & Plan (1) Abdominal wall hematoma: Vitals stable, afebrile H&H stable INR 1.4 today Pain improving Plan: May resume 5 mg of Coumadin today Repeat INR and cbc tomorrow Abdominal binder for compression and support Continue pain management as needed continue medical management Dr. Baker has seen and examined pt, agrees with above Subjective feeling better today still having moderate abdominal pain, feels better when pressure applied with blanket or pillow no n/v tolerating diet Physical Exam Vital Signs (Past 24 Hours): Last Vital Signs Temp 36.9 C 07/31/18 11:22 Pulse 71 07/31/18 11:22 Resp 16 07/31/18 11:22 BP 102/69 07/31/18 11:22 Pulse Ox 93 07/31/18 11:22 Constitutional: WD/WN, vitals as above no acute distress and not ill appearing Respiratory: no respiratory distress Gastrointestinal (Abdomen): Inspection/Auscultation: abdomen not distended Percussion/Palpation: + abdomen tender (lower abdomen and infraumbilical), abdomen soft and + abdominal mass (some palpable induration/firmness of lower abdominal wall ); no guarding and abdomen not rigid Skin: no rashes, warm and dry Ecchymosis of lower abdominal wall associated with known hematoma, varying degrees of healing. Tender to palpation. Psychiatric: A+Ox3, euthymic affect Results & Data Laboratory Results 07/31/18 07/31/18 Range/Units 07:05 07:05 WBC 7.09 (4.8-10.8) K/uL RBC 2.90 L (4.2-5.4) M/uL Hgb 9.7 L (12.0-16.0) g/dL Hct 28.5 L (37-47) % MCV 98.3 (80-100) fL MCH 33.4 (25-34) pg MCHC 34.0 (32-36) g/dL RDW Std Deviation 46.6 H (36.4-46.3) fL RDW Coeff of Jesus 13.0 (11.5-14.5) % Plt Count 168 (130-400) K/uL MPV 10.6 H (7.4-10.4) fL Immature Gran % (Auto) 0.1 % Neut % (Auto) 59.9 % Lymph % (Auto) 28.9 % [place] % (Auto) 8.5 % Eos % (Auto) 2.3 % Baso % (Auto) 0.3 % Immature Gran # (Auto) 0.01 (0.00-0.02) K/uL Neut # (Auto) 4.25 (1.4-6.5) K/uL Lymph # (Auto) 2.05 (1.2-3.4) K/uL [place] # (Auto) 0.60 H (0.11-0.59) K/uL Eos # (Auto) 0.16 (0-0.5) K/uL Baso # (Auto) 0.02 (0-0.2) K/uL PT 13.6 H (9.0-12.0) Seconds INR 1.4 H (0.9-1.1) (1) Abdominal wall hematoma Encounter type: initial encounter Qualified Code(s): S30.1XXA - Contusion of abdominal wall, initial encounter
[2018-07-31] MEDS: cephALEXin 500 MG CAP PO SCH ×2 (14:37→20:01)
[2018-07-31] MEDS: WARFARIN SOD 5 MG TAB PO SCH (15:57)
--- NOTE | 2018-07-31 16:17 | Hospitalist Progress Note ---
Date of Service July 31, 2018 Assessment & Plan (1) Abdominal wall hematoma: Infraumbilical region Left rectus sheath hematoma of 12 x 5 x 3 cm and 6.2 x 6 cm hematoma involving infraumbilical area Tender on palpation Has surrounding bruising Adequate pain control PT and OT evaluation tomorrow Hemoglobin has dropped to 10.2 from 12.2 on admission Hematoma has not increased and pain remains stable Hemoglobin is dropped to 9.7 today and the pain remains controlled We will check hemoglobin again tomorrow If stable can be discharged (2) Supratherapeutic INR: -Underwent laparoscopic appendectomy 9 days ago and received postop bridging with Lovenox before anticoagulation clinic resumed Coumadin on 07/23 -Developed abdominal wall hematoma with complaints of pain since last -CT abd/pelvis with: * 1. A subcutaneous infraumbilical midline hematoma and a left rectus sheath hematoma as described above. * 2. Interval appendectomy. No intra-abdominal abscess identified. * 3. No bowel wall thickening or obstruction. -INR supratherapeutic at 3.7. Given 10mg PO Vit K in ED -Surgery consulted, recommend holding coumadin for 1-2 days. Will continue to follow -Hgb stable at 12.8 on admission and then today it is 10.9 -Pain control, anti-emetics -Recheck INR in AM -INR is 3.4 this morning -Monitor CBC and INR-INR is 1.4 today -Restart Coumadin (3) History of pulmonary embolism: H/o multiple DVTs/PE is in past, most recent PE was 4 years ago -Hold coumadin for now -Recheck INR in AM -2.2 Will not give any more vitamin K INR is 1.4 today and Coumadin will be restarted (4) Anxiety: Given 0.5 IV Ativan in ED. Continue home ativan 0.5mg PO BID PRN (5) Asthma: Stable. Continue inhalers PRN Auscultate bilaterally (6) Acid reflux: Continue PPI, Carafate (7) Hypothyroid: Continue levothyroxine DVT Ppx: Holding coumadin for supratherapeutic INR Code status: FULL PCP: Shar Dispo: Admitted to [facility]. Plan to return home once medically stable. PT and OT evaluation Likely discharge tomorrow if hemoglobin remains stable (8) Cellulitis: Involving the left antecubital fossa Keflex has been started and to continue likely for 7 days Subjective She is a 58-year-old Obese female with a PMH of asthma, history of multiple PEs on Coumadin, recent appendectomy and other medical problems listed below who presents with worsening abdominal pain and bruising x 2 days. Underwent laparoscopic appendectomy 10 days ago and received postop bridging with Lovenox before anticoagulation clinic resumed Coumadin on 07/23. 07/29 Patient was seen and examined in medical floor She has been complaining of ongoing pain and swelling involving the abdominal wall below the umbilicus Noted to have hematoma in the rectus chest on CAT scan Ongoing pain Denies any other symptoms 07/30 History complains to have abdominal pain The pain has been increasing Denies any other symptoms of nausea and/or vomiting Has not been ambulating well 07/31 The patient was seen and examined in medical floor She complains to have some pain and pimple involving the left antecubital fossa Her pain has been controlled Physical Exam Vital Signs (Past 24 Hours): Last Vital Signs Temp 36.8 C 07/31/18 16:00 Pulse 82 07/31/18 16:00 Resp 18 07/31/18 16:00 BP 99/62 L 07/31/18 16:00 Pulse Ox 94 07/31/18 16:00 Constitutional: WD/WN, vitals as above well developed and well nourished Eyes: PERRL, conjunctivae normal, anicteric sclerae ENMT: external ear and nose normal, oropharynx normal Neck: trachea midline, no thyromegaly Respiratory: normal respiratory effort, lungs clear to auscultation normal respiratory effort Cardiovascular: RRR, no murmur, no edema Rate/Rhythm: regular rate Heart Sounds: normal S1 and normal S2 Gastrointestinal (Abdomen): Inspection/Auscultation: normal bowel sounds and + abdominal wall ecchymosis (Infraumbilical region) Percussion/Palpation: + abdomen tender (Swelling and tenderness involving the infraumbilical region with adjoining bruises), abdomen soft and + abdominal mass (Secondary to hematoma involving the rectus sheath and infraumbilical area) Neurologic: awake Psychiatric: Orientation: alert and oriented x 3 Results & Data Laboratory Results Short CBC 07/31/18 Range/Units 07:05 WBC 7.09 (4.8-10.8) K/uL Hgb 9.7 L (12.0-16.0) g/dL Hct 28.5 L (37-47) % Plt Count 168 (130-400) K/uL Medications Administered Current Inpatient Medications Acyclovir (Zovirax) 400 mg PO BID [facility] Stop: 08/29/18 08:59 Last Admin: 07/31/18 07:47 Dose: 400 mg Documented by: Albuterol (Ventolin Hfa) 2 puffs INH Q4H PRN PRN Reason: Shortness Of Breath Or Wheezing Stop: 08/27/18 21:29 Amphetamine/Dextroamphetamine (Adderall) 25 mg PO [id number] [facility] Stop: 08/13/18 06:59 Last Admin: 07/31/18 13:05 Dose: 25 mg Documented by: Atorvastatin Calcium (Lipitor) 20 mg PO DAILY [facility] Stop: 08/29/18 08:59 Last Admin: 07/31/18 07:47 Dose: 20 mg Documented by: Cephalexin HCl (Keflex) 500 mg PO TID [facility] Stop: 08/10/18 13:59 Last Admin: 07/31/18 14:37 Dose: 500 mg Documented by: Duloxetine HCl (Cymbalta) 30 mg PO DAILY [facility] Stop: 08/29/18 08:59 Last Admin: 07/31/18 07:47 Dose: 30 mg Documented by: Fluticasone Propionate (Flonase) 2 sprays NA BID [facility] Stop: 08/29/18 08:59 Last Admin: 07/31/18 07:48 Dose: 2 sprays Documented by: Acetaminophen (Ofirmev) 1,000 mg in 100 mls @ 400 mls/hr IV Q8H PRN PRN Reason: Pain Stop: 08/27/18 19:27 Levothyroxine Sodium (Synthroid) 88 mcg PO DAILYBB [facility] Stop: 08/29/18 06:29 Last Admin: 07/31/18 05:28 Dose: 88 mcg Documented by: Lorazepam (Ativan) 0.5 mg PO DAILY PRN PRN Reason: Anxiety Stop: 08/29/18 04:27 Morphine Sulfate (Morphine Sulfate) 3 mg IV Q3H PRN PRN Reason: Pain Stop: 08/11/18 22:58 Last Admin: 07/31/18 13:04 Dose: 3 mg Documented by: Ondansetron HCl (Zofran) 4 mg IV Q6H PRN PRN Reason: Nausea Stop: 08/27/18 21:29 Pantoprazole Sodium (Protonix) 40 mg PO QPM [facility] Stop: 08/29/18 20:59 Last Admin: 07/30/18 21:01 Dose: 40 mg Documented by: Polyethylene Glycol (Miralax Powder Packet) 17 gm PO DAILY PRN PRN Reason: Constipation Stop: 08/27/18 21:29 Last Admin: 07/30/18 09:42 Dose: 17 gm Documented by: Sucralfate (Carafate Tab) 1 gm PO AMHS [facility] Stop: 08/29/18 08:59 Last Admin: 07/31/18 07:48 Dose: 1 gm Documented by: Warfarin Sodium (Coumadin) 5 mg PO [id number] [facility] Stop: 08/30/18 15:59 Last Admin: 07/31/18 15:57 Dose: 5 mg Documented by: (1) Abdominal wall hematoma Encounter type: initial encounter Qualified Code(s): S30.1XXA - Contusion of abdominal wall, initial encounter
[2018-07-31] MEDS: POLYETHYLENE (MIRALAX) 17 GM PACK PO PRN (19:54)
[2018-07-31] MEDS: PANTOprazole 40 MG TAB PO SCH (20:02)
[2018-08-01] MEDS: MoRPHine SULFATE 4 MG/ML 1 ML CARP\\VIAL IV PRN ×2 (00:29→03:48)
[2018-08-01] MEDS: LEVOTHYROXINE SODIUM 88 MCG TABLET PO SCH (06:05)
[2018-08-01] MEDS: AMPHETAMINE ASP/SULF/DEXTRAMPH 10 MG TAB PO SCH ×2 (06:10→14:00)
[2018-08-01 06:11] LABS: Basophils # (auto) 0.02 K/uL (0-0.2); Basophils % (auto) 0.3 %; Eosinophils # (auto) 0.16 K/uL (0-0.5); Eosinophils % (auto) 2.6 %; Hematocrit (blood only) 28.3 % (37-47); Hemoglobin 9.6 g/dL (12.0-16.0); Immature Granulocytes # (auto) 0.01 K/uL (0.00-0.02); Immature Granulocytes % (auto) 0.2 %; Lymphocytes # (auto) 2.17 K/uL (1.2-3.4); Lymphocytes % (auto) 34.8 %; Mean Corpuscular Hgb Conc 33.9 g/dL (32-36); Mean Platelet Volume 10.6 fL (7.4-10.4); Monocytes # (auto) 0.44 K/uL (0.11-0.59); Monocytes % (auto) 7.1 %; Neutrophils # (auto) 3.44 K/uL (1.4-6.5); Platelet Count 191 K/uL (130-400); RDW Standard Deviation 47.1 fL (36.4-46.3); Red Blood Count 2.86 M/uL (4.2-5.4); White Blood Count 6.24 K/uL (4.8-10.8)
[2018-08-01 06:39] LABS: BUN Creatinine Ratio 16.2 (10-20); Calcium 8.5 mg/dl (8.5-10.1); Creatinine Clr Calc Pharmacy 100.5 ml/min; Est GFR (African American) 93.4; Est GFR (Non-African American) 80.6; Potassium 4.2 mmol/L (3.5-5.1)
[2018-08-01 06:40] LABS: INR 1.3 (0.9-1.1)
[2018-08-01] MEDS ORDERED: TRAMADOL HCL 50 MG TABLET PO PRN (08:59)
[2018-08-01] MEDS: DULOXETINE HCL 30 MG CAP PO SCH (09:03)
[2018-08-01] MEDS: ATORVASTATIN 20 MG TAB PO SCH (09:03)
[2018-08-01] MEDS: ACYCLOVIR 400 MG TAB PO SCH (09:04)
[2018-08-01] MEDS: SUCRALFATE 1 GM TAB PO SCH (09:04)
[2018-08-01] MEDS: FLUTICASONE PROPIONATE NA SPR 16 GM BTL SCH (09:04)
[2018-08-01] MEDS: cephALEXin 500 MG CAP PO SCH ×2 (09:04→14:00)
--- NOTE | 2018-08-01 11:29 | Surgery Progress Note ---
Date of Service August 01, 2018 Assessment & Plan (1) Abdominal wall hematoma: vitals stable, afebrile no leukocytosis h&H stable abdominal pain improving Hematoma has not increased in size INR 1.3 Plan: Okay from surgical standpoint for discharge Continue Coumadin 5 mg today Close follow-up of INR Follow-up with Dr. Baker in 1 week (early next week) Discharge instructions as per appendectomy discharge instructions reviewed with patient Tramadol prn pain (discussed with Dr. Sanches) Dr. Baker has seen and examined pt, agrees with above (2) Cellulitis: Antecubital fossa no fluctuance From prior IV site Plan: Recommend oral abx on discharge for 1 week advised patient to closely monitor if increasing redness, pain, or discharge she should call surgical office Subjective feeling better today, still having abdominal pain no nausea or vomiting, low appetite, tolerating diet Physical Exam Vital Signs (Past 24 Hours): Last Vital Signs Temp 36.7 C 08/01/18 07:22 Pulse 70 08/01/18 07:22 Resp 18 08/01/18 07:22 BP 111/72 08/01/18 07:22 Pulse Ox 92 08/01/18 07:22 Constitutional: WD/WN, vitals as above no acute distress Respiratory: no respiratory distress Gastrointestinal (Abdomen): Inspection/Auscultation: abdomen not distended Percussion/Palpation: + abdomen tender and abdomen soft; no guarding and abdomen not rigid Skin: no rashes, warm and dry Ecchymosis of the lower abdominal wall with induration present infraumbilical at site of hematoma. Tender to palpation. Warm to touch Left antecubital fossa: there is small 1 cm induration with erythema present. No fluctuance on palpation. Mildly tender to palpation. Psychiatric: A+Ox3, euthymic affect Results & Data Laboratory Results 08/01/18 08/01/18 08/01/18 Range/Units 05:41 05:41 05:41 WBC 6.24 (4.8-10.8) K/uL RBC 2.86 L (4.2-5.4) M/uL Hgb 9.6 L (12.0-16.0) g/dL Hct 28.3 L (37-47) % MCV 99.0 (80-100) fL MCH 33.6 (25-34) pg MCHC 33.9 (32-36) g/dL RDW Std Deviation 47.1 H (36.4-46.3) fL RDW Coeff of Jesus 13.0 (11.5-14.5) % Plt Count 191 (130-400) K/uL MPV 10.6 H (7.4-10.4) fL Immature Gran % (Auto) 0.2 % Neut % (Auto) 55.0 % Lymph % (Auto) 34.8 % [place] % (Auto) 7.1 % Eos % (Auto) 2.6 % Baso % (Auto) 0.3 % Immature Gran # (Auto) 0.01 (0.00-0.02) K/uL Neut # (Auto) 3.44 (1.4-6.5) K/uL Lymph # (Auto) 2.17 (1.2-3.4) K/uL [place] # (Auto) 0.44 (0.11-0.59) K/uL Eos # (Auto) 0.16 (0-0.5) K/uL Baso # (Auto) 0.02 (0-0.2) K/uL PT 13.0 H (9.0-12.0) Seconds INR 1.3 H (0.9-1.1) Sodium 140 (136-145) mmol/L Potassium 4.2 (3.5-5.1) mmol/L Chloride 105 (98-107) mmol/L Carbon Dioxide 32 (21-32) mmol/L Anion Gap 4.0 (3-11) BUN 13 (7-18) mg/dl Creatinine 0.81 (0.6-1.2) mg/dl Est Cr Clr Drug Dosing 100.5 ml/min Est GFR ( Amer) 93.4 Est GFR (Non-Af Amer) 80.6 BUN/Creatinine Ratio 16.2 (10-20) Glucose 97 (70-99) mg/dl Calcium 8.5 (8.5-10.1) mg/dl (1) Abdominal wall hematoma Encounter type: initial encounter Qualified Code(s): S30.1XXA - Contusion of abdominal wall, initial encounter
--- NOTE | 2018-08-01 13:00 | Hospitalist Progress Note ---
Date of Service August 01, 2018 Assessment & Plan (1) Abdominal wall hematoma: Abdominal Wall Hematoma Infraumbilical region/Left rectus sheath hematoma pain control Hemoglobin stable Appreciate Surgery Input Resumed coumadin Needs Follow up with coumadin clinic upon discharge (2) Supratherapeutic INR: Underwent laparoscopic appendectomy and received postop bridging with Lovenox before anticoagulation clinic resumed Coumadin on 07/23 Developed abdominal wall hematoma CT ABD: A subcutaneous infraumbilical midline hematoma and a left rectus sheath hematoma as described above. Presented with supratherapeutic INR S/P Vit K INR:1.3 today Restarted Coumadin Monitor INR (3) History of pulmonary embolism: H/o multiple DVTs/PE is in past, most recent PE was 4 years ago coumadin resumed Monitor INR: 1.3 today No plan for bridging due to abdominal wall hematoma (4) Anxiety: Continue Ativan PRN (5) Asthma: Stable. Continue inhalers PRN (6) Acid reflux: Continue PPI, Carafate (7) Hypothyroid: Continue levothyroxine DVT Px: On coumadin Code status: FULL PCP: Shar (8) Cellulitis: Involving the left antecubital fossa Keflex has been started and to continue likely for 7 days Subjective Patient is seen and examined at bedside Abdominal pain improved Discussed with surgery today Denies chest pain, SOB, dizziness No other complaints Physical Exam Vital Signs (Past 24 Hours): Last Vital Signs Temp 36.8 C 08/01/18 11:40 Pulse 63 08/01/18 11:40 Resp 18 08/01/18 11:40 BP 100/67 08/01/18 11:40 Pulse Ox 94 08/01/18 11:40 Physical Exam: Physical Exam: Vitals signs as noted above General Appearance:Obese, no apparent distress Head: normocephalic, Atraumatic Eyes: normal inspection, EOMI Neck: supple, Trachea midline Respiratory/Chest: Normal breath sounds, CTA Cardiovascular: S1, S2, No murmur Abdomen/GI:Soft, mild tender,+Echymosis, induration infraumbilical region Bowel sounds present Extremities/Musculoskelatal:normal inspection, left antecubital fossa: small induration noted Neurologic/Psych:AAOX3, grossly no focal neurological deficits Skin: normal color, warm Results & Data Laboratory Results Short CBC 08/01/18 Range/Units 05:41 WBC 6.24 (4.8-10.8) K/uL Hgb 9.6 L (12.0-16.0) g/dL Hct 28.3 L (37-47) % Plt Count 191 (130-400) K/uL [facility] 08/01/18 05:41 Sodium 140 Potassium 4.2 Chloride 105 Carbon Dioxide 32 BUN 13 Creatinine 0.81 Glucose 97 Calcium 8.5 (1) Abdominal wall hematoma Encounter type: initial encounter Qualified Code(s): S30.1XXA - Contusion of abdominal wall, initial encounter
--- NOTE | 2018-08-01 13:09 | Discharge Summary ---
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 Underwent laparoscopic appendectomy 10 days ago and received postop bridging with Lovenox before anticoagulation clinic resumed Coumadin on 07/23. Patient has been experiencing mild abdominal pain since surgery, but has been following with surgical clinic who felt that pain was normal postoperative pain. Yesterday, patient started to have worsening, cramping pain with associated bloating and nausea. Also noticed a small area of bruising under her umbilicus. 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 Came to ED for further evaluation. Has history of multiple PEs, most recently 4 years ago. Has been on Coumadin without issue. In ED, patient was found to be afebrile, normotensive and without leukocytosis. CT of abdomen/pelvis with evidence of subcutaneous infraumbilical hematoma. No evidence of abscess, bowel thickening or obstruction. ED provider consulted with Dr. Cardenas, who recommended 10 [address] K. Dr. Baker of surgical service consulted and examined in the ED with recommendation of holding Coumadin for 1-2 days. Patient currently endorsing 4/10 abdominal pain as well as feeling anxious and nauseous. Denies any fever, chills, lightheadedness, headache, chest pain, palpitations, shortness of breath, vomiting, dysuria, diarrhea or constipation. Last bowel movement was yesterday and was normal color and caliber. Admission Exam Per Admitting Provider General Appearance: WD/WN, no apparent distress, anxious Head: normocephalic, atraumatic Eyes: normal inspection, PERRL, EOMI ENT: hearing grossly normal, pharynx normal (moist mucous membranes) Neck: supple, no JVD, no adenopathy Respiratory/Chest: lungs clear to auscultation. No wheezes, rales or rhonci. No respiratory distress or accessory muscle use Cardiovascular: regular rate, rhythm, no murmur, normal peripheral pulses Abdomen/GI: normal bowel sounds, soft, 5x6 cm infraumbilical hematoma, diffuse TTP but no guarding Extremities/Musculoskelatal: normal inspection, no calf tenderness, normal capillary refill, trace BLE edema Neurologic/Psych: alert, normal mood/affect, oriented x 3 Skin: normal color, warm/dry Principal Diagnosis Discharge Information Discharge Diagnosis Abdominal wall hematoma Discharge Goals Decrease discomfort,Improve disease control, Improve function Discharge Activity Limitations Resume your previous activity Discharge Data Allergies Allergy/AdvReac Type Severity Reaction Status Date / Time Bactrim Allergy Intermediate break out Verified 12/15/17 05:35 in hives sulfamethoxazole Allergy Intermediate RASH Verified 07/28/18 16:19 trimethoprim Allergy Intermediate break out Verified 07/28/18 16:19 in hives Sulfa (Sulfonamide Allergy Mild RASH Verified 07/28/18 16:19 Antibiotics) phytonadione (vitamin K1) Allergy Difficulty Verified 07/28/18 16:19 Breathing amoxicillin AdvReac Intermediate SEVERE Verified 07/28/18 16:19 NAUSEA AND VOMITING tetracycline AdvReac Intermediate NAUSEA/VOMI Verified 07/28/18 16:19 TING clavulanic acid AdvReac Unknown SEVERE Verified 07/28/18 16:19 NAUSEA AND VOMITING codeine AdvReac Unknown VOMIT-WAS Verified 07/28/18 16:19 ON EMPTY STOMACH Consultations 07/28/18 18:16 ED Decision to Admit Stat 07/28/18 21:30 Consult General Surgery Routine Procedures Performed CT ABD: 1. A subcutaneous infraumbilical midline hematoma and a left rectus sheath h ematoma as described above. 2. Interval appendectomy. No intra-abdominal abscess identified. 3. No bowel wall thickening or obstruction. CXR: Negative chest. Ordered Studies 07/28/18 15:33 CT abd pelvis IV con only Stat Hospital Course (1) Abdominal wall hematoma: Abdominal Wall Hematoma Infraumbilical region/Left rectus sheath hematoma pain control Hemoglobin stable Appreciate Surgery Input Resumed coumadin Needs Follow up with coumadin clinic upon discharge (2) Supratherapeutic INR: Underwent laparoscopic appendectomy and received postop bridging with Lovenox before anticoagulation clinic resumed Coumadin on 07/23 Developed abdominal wall hematoma CT ABD: A subcutaneous infraumbilical midline hematoma and a left rectus sheath hematoma as described above. Presented with supratherapeutic INR S/P Vit K INR:1.3 today Restarted Coumadin Monitor INR (3) History of pulmonary embolism: H/o multiple DVTs/PE is in past, most recent PE was 4 years ago coumadin resumed Monitor INR: 1.3 today No plan for bridging due to abdominal wall hematoma (4) Anxiety: Continue Ativan PRN (5) Asthma: Stable. Continue inhalers PRN (6) Acid reflux: Continue PPI, Carafate (7) Hypothyroid: Continue levothyroxine DVT Px: On coumadin Code status: FULL PCP: Shar (8) Cellulitis: Involving the left antecubital fossa Keflex has been started and to continue likely for 7 days Total Time Total Time Spent Total Time Spent (In Minutes): 39 minutes Total Time Includes: Examination of the Patient, Discharge Planning, Medication Reconciliation, Communication With Other Providers and Other Discharge Plan Discharge Items Patient Disposition: Home - Self-Care Reason For Visit: ABD WALL HEMATOMA, DIFFUSE PAIN Discharge Diagnosis: Abdominal wall hematoma Discharge Goals: Decrease discomfort, Improve disease control and Improve function Activity: Resume your previous activity Exercise/Sports: Gradually increase as tolerated Non-emergency contact: Primary Care Provider and Surgeon Call non-emergency contact if: you have any medication questions, your symptoms worsen, your pain is not controlled, your pain is worsening, your pain is unusual for you, your pain is concerning for you, you have a fever, your temperature is above 100.5, your temperature is above 101, your wound has increased redness, your wound has increased drainage and your wound pain has increased Follow-up/Referrals: Eligio Myles D.ORubin [Primary Care Provider] - Diet: Heart Healthy Addtl Provider Instructions: Follow up with your PCP on 08/03/18 at 11:05 Am Follow up with your Surgeon on 08/02/18 at 2:15pm Follow up with Coumadin clinic as advised for management of your coumadin dosing Complete the antibiotic course as prescribed No heavy lifting over 10 pounds until seen in surgery office No strenuous activity No submerging incisions underwater (swimming, bathing, hot tubs) No driving while taking pain medication or until you are pain free You may shower Monitor redness and infection of the left arm. If increasing redness, drainage, or pain call surgical office Wear abdominal binder daily for support. Call surgical office for close follow-up with Dr. Baker early next week. Please call office at [phone] to make an appointment. Prescriptions: New tramadol 50 mg Tablet 50 mg PO Q6H PRN (Reason: pain) 3 Days Qty: 10 RF: 0 cephalexin 500 mg Capsule 500 mg PO TID 5 Days Qty: 15 RF: 0 Continued sucralfate [Carafate] 1 gram Tablet 1 g PO AMHS RF: 0 acyclovir 400 mg Tablet 400 mg PO BID RF: 0 lorazepam 0.5 mg Tablet 0.5 mg PO DAILY PRN (Reason: Anxiety) RF: 0 pantoprazole 40 mg Tablet,Delayed Release (Dr/Ec) 40 mg PO QPM RF: 0 dextroamphetamine-amphetamine [Adderall] 20 mg Tablet 1.25 tabs PO BID RF: 0 warfarin [Coumadin] 5 mg Tablet 5 mg PO [id number] RF: 0 warfarin [Coumadin] 5 mg Tablet 7.5 mg PO WK RF: 0 albuterol sulfate 90 mcg/actuation Hfa Aerosol Inhaler 2 puff INHALATION Q4H PRN (Reason: Shortness Of Breath Or Wheezing) RF: 0 fluticasone [Flonase Allergy Relief] 50 mcg/actuation [place],Suspension 2 spray INTRANASAL BID RF: 0 levothyroxine 88 mcg Tablet 88 mcg PO DAILY RF: 0 duloxetine [Cymbalta] 30 mg Capsule,Delayed Release(Dr/Ec) 30 mg PO DAILY RF: 0 atorvastatin 20 mg 20 mg PO DAILY RF: 0 Stand-Alone Forms: Call Back Authorization, [facility] Discharge Orders: Discharge Order (Routine); Ordered 08/01/18 Ordered By: Khoa Sanches Admission Data Admit Date/Time: 07/28/18 19:32 Attending Provider: Khoa Sanches Admit Provider: Jin Roger Primary Care Provider: Eligio Myles V. Other Providers: Jin Roger ; Anabel Baker ; Delma Marroquin Service: Telemetry Other Interventions: Discharge Summary Assessment (RN) Last Done: 08/01/18 17:50 Pending Studies at Discharge: No DC Date/Time DO NOT enter until pt leaves facility: 08/01/18 18:36
[2018-08-01] MEDS: WARFARIN SOD 5 MG TAB PO SCH (18:06)
== END 2018-08-01 18:36 | disposition home or self-care (01) | DRG 556 ==
LOC: ED 15:18 → 2N 19:32 → SUATTDRO 19:32 → 2N 20:22
DX: E03.9 Hypothyroidism, unspecified; Z79.899 Other long term (current) drug therapy; F41.9 Anxiety disorder, unspecified; L03.114 Cellulitis of left upper limb; Z86.711 Personal history of pulmonary embolism; M79.81 Nontraumatic hematoma of soft tissue; Z68.41 Body mass index [BMI] 40.0-44.9, adult; J45.909 Unspecified asthma, uncomplicated; E66.3 Overweight; Z86.718 Personal history of other venous thrombosis and embolism; Z79.01 Long term (current) use of anticoagulants; K21.9 Gastro-esophageal reflux disease without esophagitis